=== PATIENT | female | born 1935 | race Caucasian/White ===

== ENCOUNTER 2016-08-16 14:32 | Inpatient (IN) | payer MEDICARE, OTHER ==
[~2016-08-16] VITALS: Ht 157.5 cm; Wt 64.9 kg
[~2016-08-16 14:32] MED LIST: [UNRECOGNIZED DRUG - REMARK]
[2016-08-16] MEDS ORDERED: SODIUM CHLORIDE 0.9% 1L BAG IV* STA (15:19)
[2016-08-16] MEDS ORDERED: LEVOFLOXACIN 750MG/D5W (PMX) 150 ML IVPB STA (15:19)
[2016-08-16] MEDS ORDERED: ALBUTEROL 0.083% (NEB) 2.5 MG/3 ML AMP HHN STA (15:37)
[2016-08-16] MEDS ORDERED: ONDANSETRON 4 MG INJ IV STA (15:37)
[2016-08-16 15:53] LABS: ADD SCAN DIFF NO
[2016-08-16 15:55] LABS: BASOPHILS % 0.1 % (0.0-2.0); EOSINOPHILS % 0.2 % (0.0-7.0); HEMATOCRIT 35.5 % (37.0-47.0); HEMOGLOBIN 12.1 g/dl (12.0-16.0); LYMPHOCYTES # 1.2 10^3/ul (0.8-2.9); LYMPHOCYTES % 9.6 % (15.0-51.0); MEAN CORPUSCULAR HEMOGLOBIN 29.5 pg (29.0-33.0); MEAN CORPUSCULAR HGB CONC 34.1 g/dl (32.0-37.0); MEAN CORPUSCULAR VOLUME 86.6 fl (82.0-101.0); MEAN PLATELET VOLUME 10.7 fl (7.4-10.4); MONOCYTE # 0.7 10^3/ul (0.3-0.9); MONOCYTES % 5.1 % (0.0-11.0); NEUTROPHILS % 84.6 % (39.0-77.0); PLATELET COUNT 224 10^3/UL (140-415); RED CELL DISTRIBUTION WIDTH 12.5 % (11.5-14.5); WHITE BLOOD COUNT 12.9 10^3/ul (4.8-10.8)
[2016-08-16] MEDS ORDERED: ONDANSETRON 4 MG INJ IV PRN (16:00)
[2016-08-16] MEDS ORDERED: ACETAMINOPHEN 325 MG TAB PO PRN (16:00)
[2016-08-16 16:12] LABS: INR 0.96; PARTIAL THROMBOPLASTIN TIME 30.6 Sec (25.0-35.0); PROTIME 12.8 Sec (12.2-14.2)
[2016-08-16 16:21] LABS: ALBUMIN 4.3 g/dl (3.3-4.9); CHLORIDE 87 mmol/L (97-110)
[2016-08-16 16:22] LABS: POTASSIUM 3.5 mmol/L (3.5-5.1); SODIUM 130 mmol/L (135-144)
[2016-08-16 16:24] LABS: ALANINE AMINOTRANSFERASE 27 IU/L (13-69); ALBUMIN/GLOBULIN RATIO 1.43; ALKALINE PHOSPHATASE 51 IU/L (42-121); ANION GAP 19 (8-16); ASPARTATE AMINO TRANSFERASE 27 IU/L (15-46); BILIRUBIN,INDIRECT 0.4 mg/dl (0-1.1); BILIRUBIN,TOTAL 0.4 mg/dl (0.2-1.3); BLOOD UREA NITROGEN 9 mg/dl (7-20); CARBON DIOXIDE 28 mmol/L (21-31); CREATININE 0.56 mg/dl (0.44-1.00); GLUCOSE 142 mg/dl (70-220); TOTAL PROTEIN 7.3 g/dl (6.1-8.1)
[2016-08-16 16:25] LABS: CALCIUM 9.1 mg/dl (8.4-10.2)
[2016-08-16] MEDS ORDERED: TAMS0.4C2 PO (16:33)
[2016-08-16] MEDS ORDERED: SIMV10TA PO (16:33)
[2016-08-16] MEDS ORDERED: MAXZ25 PO (16:34)
[2016-08-16] MEDS ORDERED: LEVO500T10 PO (16:36)
[2016-08-16] MEDS ORDERED: TRAZ100T15 PO (16:36)
--- NOTE | 2016-08-16 16:37 | RADRPT ---
PROCEDURE: XR Chest. CLINICAL INDICATION: Shortness of breath. TECHNIQUE: Single frontal view. COMPARISON: 05/25/2012. FINDINGS: The lungs are clear. The heart size is normal. There is calcification in the aorta consistent with atherosclerosis. There is no pleural effusion. There is no pneumothorax. IMPRESSION: 1. Atherosclerosis. 2. Otherwise normal chest radiograph. RPTAT: QQ .Shakir Rojo MD, MD Date Time Electronically viewed and signed by .Shakir Rojo MD, MD on 08/16/2016 16:36 .R/
[2016-08-16 16:38] LABS: TROPONIN-I < 0.012 ng/ml (0.00-0.12)
[2016-08-16] MEDS ORDERED: CHLO1CAP57 PO (16:39)
[2016-08-16] MEDS ORDERED: SOD CHLORIDE 0.9% 100 ML ONE (18:21)
[2016-08-16] MEDS ORDERED: IOHEXOL 100 ML ONE (18:21)
--- NOTE | 2016-08-16 18:38 | ERA ---
ER Documentation Chief Complaint Date/Time DATE: 08/16/16 TIME: 18:36 Chief Complaint REFERRED HERE BY DR. TURK TO BE ADMITTED FOR PNEUMONIA/ RESP FAILURE HPI Patient is an 81-year-old female with hypertension who presents for pneumonia. The patient was sent by Dr. Turk who saw the patient in her office for pneumonia and respiratory failure. The patient woke up yesterday with a sore throat for the past few months was not feeling well per the son. The patient has had congestion with positive phlegm. The patient went to an urgent care yesterday was given Levaquin antibiotics but was not feeling better. Upon review of old medical records the patient has had previous visits. The patient' s primary doctor is Dr. Bolaños but he is on vacation. ROS All systems reviewed and are negative except as per history of present illness. Medications Home Meds Reported Medications Chlordiazepoxide/Clidinium Br (Chlordiazepoxide-Clidinium Cap) 1 Each Capsule, 1 EACH PO QID, CAP 08/16/16 Trazodone Hcl* (Trazodone Hcl*) 100 Mg Tablet, 100 MG PO QHS, #30 TAB 08/16/16 Triamterene/Hctz* (Maxzide (37.5-25)*) 1 Each Tablet, 1 EACH PO DAILY, #30 TAB 08/16/16 Tamsulosin Hcl* (Tamsulosin Hcl*) 0.4 Mg Cap.er.24h, 0.4 MG PO HS, CAP 08/16/16 Simvastatin* (Zocor*) 10 Mg Tablet, 10 MG PO DAILY, #30 TAB 08/16/16 Discontinued Reported Medications Levofloxacin* (Levofloxacin*) 500 Mg Tablet, 500 MG PO DAILY for 7 Days, #7 TAB 08/16/16 [Didn't Bring List Of Meds] No Conflict Check 05/25/12 Allergies Allergies: Coded Allergies: Sulfa (Sulfonamide Antibiotics) (Verified Allergy, Unknown, 08/16/16) amoxicillin (Verified Allergy, Unknown, 08/16/16) chlorhexidine (Verified Allergy, Unknown, 08/16/16) clindamycin (Verified Allergy, Unknown, 08/16/16) doxycycline (Verified Allergy, Unknown, 08/16/16) erythromycin base (Verified Allergy, Unknown, 08/16/16) hyoscyamine (Verified Allergy, Unknown, 08/16/16) nabumetone (Verified Allergy, Unknown, 08/16/16) omeprazole (Verified Allergy, Unknown, 08/16/16) omeprazole magnesium (Verified Allergy, Unknown, 08/16/16) sulfur (Verified Allergy, Unknown, 08/16/16) PMhx/Soc History of Surgery: Yes ( VAGINAL HYST,OOPHORECTOMY,EXPLOR LAP 1983) Anesthesia Reaction: No Hx Neurological Disorder: No Hx Respiratory Disorders: No Hx Cardiac Disorders: Yes (HIGH CHOL, HTN) Hx Psychiatric Problems: No Hx Miscellaneous Medical Probl: No Hx Alcohol Use: Yes (OCASSIONAL ) Hx Substance Use: No Hx Tobacco Use: No Smoking Status: Former smoker FmHx Family History: No diabetes Physical Exam Vitals Vital Signs Date Time Temp Pulse Resp B/P Pulse Ox O2 Delivery O2 Flow Rate FiO2 08/16/16 17:35 90 20 141/55 99 Nasal Cannula 2.0 08/16/16 16:01 Nasal Cannula 08/16/16 15:55 100 20 93 21 08/16/16 15:40 Nasal Cannula 2 08/16/16 14:58 99.5 100 18 164/71 99 Physical Exam Const: Mild distress Head: Atraumatic Eyes: Normal Conjunctiva ENT: Normal External Ears, Nose and Mouth. Neck: Full range of motion..~ No meningismus. Resp: Rhonchorous breath sounds bilaterally with mild expiratory wheezing and tachypnea Cardio: Tachycardic rate without murmur Abd: Soft, non tender, non distended. Normal bowel sounds Skin: No petechiae or rashes Back: No midline or flank tenderness Ext: No cyanosis, or edema Neur: Awake and alert Psych: Normal Mood and Affect Result Diagram: 08/16/16 1540 08/16/16 1540 Results 24 hrs Laboratory Tests Test 08/16/16 15:25 08/16/16 15:40 08/16/16 17:00 Lactic Acid Level 1.3mmol/L 2.8mmol/L White Blood Count 12.910^3/ul Red Blood Count 4.1010^6/ul Hemoglobin 12.1g/dl Hematocrit 35.5% Mean Corpuscular Volume 86.6fl Mean Corpuscular Hemoglobin 29.5pg Mean Corpuscular Hemoglobin Concent 34.1g/dl Red Cell Distribution Width 12.5% Platelet Count 25656^3/UL Mean Platelet Volume 10.7fl Neutrophils % 84.6% Lymphocytes % 9.6% Monocytes % 5.1% Eosinophils % 0.2% Basophils % 0.1% Nucleated Red Blood Cells % 0.0/100WBC Neutrophils # 11.010^3/ul Lymphocytes # 1.210^3/ul Monocytes # 0.710^3/ul Eosinophils # 0.010^3/ul Basophils # 0.010^3/ul Nucleated Red Blood Cells # 0.010^3/ul Prothrombin Time 12.8Sec Prothrombin Time Ratio 1.0 INR International Normalized Ratio 0.96 Activated Partial Thromboplast Time 30.6Sec Sodium Level 130mmol/L Potassium Level 3.5mmol/L Chloride Level 87mmol/L Carbon Dioxide Level 28mmol/L Anion Gap 19 Blood Urea Nitrogen 9mg/dl Creatinine 0.56mg/dl Glucose Level 142mg/dl Calcium Level 9.1mg/dl Total Bilirubin 0.4mg/dl Direct Bilirubin 0.00mg/dl Indirect Bilirubin 0.4mg/dl Aspartate Amino Transf (AST/SGOT) 27IU/L Alanine Aminotransferase (ALT/SGPT) 27IU/L Alkaline Phosphatase 51IU/L Troponin I < 0.012ng/ml Total Protein 7.3g/dl Albumin 4.3g/dl Globulin 3.00g/dl Albumin/Globulin Ratio 1.43 Current Medications Medications (Trade) Dose Ordered Sig/Ana Laura Route PRN Reason Start Time Stop Time Status Last Admin Dose Admin Sodium Chloride 2000 ml 2,000 ml BOLUS OVER 2 HOURS STAT IV* 08/16/16 15:19 08/16/16 15:20 DC 08/16/16 15:52 Levofloxacin/ Dextrose (Levaquin 750 Mg/ D5W 150 ml (Pmx)) 150 ml @ 100 mls/hr ONCE STAT IVPB 08/16/16 15:19 08/16/16 16:48 DC 08/16/16 15:52 Ondansetron HCl (Zofran Inj) 4 mg ONCE STAT IV 08/16/16 15:37 08/16/16 15:38 DC 08/16/16 15:52 Albuterol (Proventil 0.083% (Neb)) 5 mg ONCE STAT HHN 08/16/16 15:37 08/16/16 15:38 DC 08/16/16 15:55 Ondansetron HCl (Zofran Inj) 4 mg BRIDGE ORDER PRN IV NAUSEA AND/OR VOMITING 08/16/16 16:00 08/17/16 15:59 Acetaminophen (Tylenol Tab) 650 mg ER BRIDGE PRN PO MILD PAIN/FEVER 08/16/16 16:00 08/17/16 15:59 Chlordiazepoxide/ Clidinium (Librax) 1 cap AC MEALS AND BEDTIME PO 08/16/16 21:00 UNV Tamsulosin HCl (Flomax) 0.4 mg HS PO 08/16/16 21:00 UNV Trazodone HCl (Desyrel) 100 mg QHS PO 08/16/16 21:00 UNV Miscellaneous Information 10 mg DAILY PO 08/17/16 09:00 UNV Clonidine 0.1 mg 0.1 mg Q4 PRN PO sbp >160 08/16/16 18:30 UNV Levofloxacin/ Dextrose 150 ml @ 100 mls/hr AM IVPB 08/17/16 09:00 UNV Potassium Chloride/Dextrose/ Sod Cl (D5-NS + KCl 20 Meq) 1,000 ml @ 50 mls/hr Q20H IV 08/16/16 18:30 UNV IV Flush 10 ml 10 ml STK-MED ONCE .ROUTE 08/16/16 18:21 08/16/16 18:22 DC Sodium Chloride 100 ml @ ud STK-MED ONCE .ROUTE 08/16/16 18:21 08/16/16 18:22 DC Iohexol (Omnipaque) 100 ml @ ud STK-MED ONCE .ROUTE 08/16/16 18:21 08/16/16 18:22 DC Procedures/MDM EKG read by me: Rate/Rhythm: Regular rate and rhythm at a rate of 99 Intervals: Normal Impression: No evidence of ischemia or arrhythmia Chest x-ray shows atherosclerosis per radiology. Patient is a 81-year-old female with hypertension who presents for clinical pneumonia. Her symptoms and physical exam are consistent with pneumonia and I will treat her with IV Levaquin. The patient has an elevated white blood cell count as well but a normal lactic acid. This point I doubt sepsis. She has failed outpatient treatment and will need admission to a medical surgical bed. I spoke with Dr. Turk who is on-call for her primary doctor Dr. Bolaños. At this point I doubt pneumothorax, pulmonary embolism, or acute coronary syndrome. The patient was dehydrated as well was given 30 mL/kg of normal saline bolus. Departure Diagnosis: Primary Impression: Pneumonia Qualified Code: J18.9 - Pneumonia due to infectious organism, unspecified laterality, unspecified part of lung Additional Impressions: Shortness of breath Leukocytosis Qualified Code: D72.829 - Leukocytosis, unspecified type Condition: NAVJOT Louie MD Aug 16, 2016 18:38
[2016-08-16 18:46] LABS: ADD UMIC YES; URINE BILIRUBIN (Dip) NEGATIVE (NEGATIVE); URINE BLOOD (Dip) TRACE (NEGATIVE); URINE COLOR LT. YELLOW (YELLOW); URINE GLUCOSE (Dip) NEGATIVE (NEGATIVE); URINE KETONES (Dip) 15 (NEGATIVE); URINE LEUKOCYTE ESTERASE (Dip) NEGATIVE (NEGATIVE); URINE NITRITE (Dip) NEGATIVE (NEGATIVE); URINE TOTAL PROTEIN (Dip) NEGATIVE (NEGATIVE); URINE UROBILINOGEN (Dip) 0.2 E.U./dL (0.1-1.0)
[2016-08-16 19:00] VITALS: TEMP 99.8
[2016-08-16 19:01] LABS: BACTERIA,URINE FEW; SQUAMOUS EPITHELIAL CELL,UR OCCASIONAL
--- NOTE | 2016-08-16 19:41 | RADRPT ---
PROCEDURE: CT chest with contrast/PE protocol CLINICAL INDICATION: Hypoxia and shortness of breath. Clinical concern for pulmonary embolism TECHNIQUE: The study was performed from the thoracic inlet to the upper abdomen with the use of 97 cc of Omnipaque 350 intravenous contrast material per PE protocol. Coronal/sagittal reformatted jarad ges and coronal MIP images were generated. The images were reviewed on a PACS workstation. CTDIvol = 20.79 mGy and DLP= 249.28 mGycm. COMPARISON: Chest x-ray 08/16/2016 FINDINGS: Lungs, airway and pleura: The trachea is patent and midline. There are areas of subtle bronchiecta sis in the right greater than left upper lobes and in the lower lobes with peribronchial thickening. The lungs are clear of infiltrates and masses but subsegmental atelectasis or scarring in the left lower lobe and the medial segment right middle lobe is present. A noncalcified subpleural nodule i n the inferior aspect medial segment right middle lobe is smoothly marginated and estimated at 7 x 4 mm (series 4 image 73). Calcified granulomata within the right upper lobe centrally are noted No ad ditional nodules are noted. The pleural spaces are clear, without effusions. Elevation of the left hemidiaphragm is present from left lower lobe subsegmental atelectasis Mediastinum, bethany and cardiovascular: The heart is normal in size. There is no evidence for perica rdial effusion. The thoracic aorta is normal in caliber and without dissection, mild atheroscleroti c calcification is present. There are no filling defects within the pulmonary arteries to suggest e mboli. Prominence of the lymphatics in the hilar region bilaterally is noted with a precarinal lymp h node having a short axis of 9 mm. The esophagus is normal in caliber. Osseous structures and musculoskeletal findings: There is preservation of bone architecture and min eralization with no evidence for fracture, lytic or blastic lesion. Mild scoliosis and multilevel de generative spondylosis of the thoracic spine is present No chest wall abnormalities are present. Th e axillary regions are unremarkable. Visualized upper abdomen: No abnormalities are identified. The adrenal glands are normal bilateral ly. RPTAT:HJJR IMPRESSION: 1. No evidence for pulmonary embolism. 2. Subsegmental atelectasis most pronounced left lower lobe with elevation of the left hemidiaphrag m and diffuse basilar dominant bronchitis pattern with mild bronchiectasis and prominence of the hil ar lymphatics as well as a top normal sized precarinal lymph node, findings not appreciated on the e [facility] chest x-ray. 3. Aortic atherosclerosis is present. Lemuel Sorenson Physician Date Time Electronically viewed and signed by Lemuel Sorenson, Physician on 08/16/2016 19:40 JR/
[2016-08-16] MEDS: D5-NS + KCL 20 MEQ 1,000 ML IV SCH (20:45)
[2016-08-16] MEDS: traZODone 100 MG TAB PO SCH (21:28)
[2016-08-16] MEDS: ATORVASTATIN 10 MG TAB PO SCH (21:28)
[2016-08-16] MEDS: TAMSULOSIN (SR) 0.4 MG CAP PO SCH (21:28)
[2016-08-16] MEDS: CHLORDIAZEPOXIDE/CLIDINIUM CAP PO SCH (21:28)
[2016-08-16 22:21] VITALS: BP 128/60; PULSE 92; RESP 23; Ht 157.5 cm; Wt 64.9 kg
[2016-08-16 23:21] VITALS: BP 128/60; RESP 20
--- NOTE | 2016-08-17 00:13 | HP ---
DATE OF ADMISSION: 08/16/2016 CHIEF COMPLAINT: Weakness, sore throat, coughing. HISTORY OF PRESENT ILLNESS: This 81-year-old female presented in the office with 3 days of sore throat, earache, coughing, and diarrhea. The patient went to the urgent care the day prior to admission and was given Levaquin 500 mg p.o. daily. She started these pills last night, but has been feeling more and more weak with increasing shortness of breath and coughing productive of green sputum, so she came into the office for recheck. In the office, the patient was noted to have elevated blood pressure, a decreased pulse oximetry of 88% on room air, and crackles at bilateral bases in the lungs , so patient was transferred to the emergency room for evaluation and subsequent admission. PAST MEDICAL HISTORY: Hypertension, anemia, osteoporosis, mitral valve prolapse , sinusitis, irritable bowel syndrome, nocturia. PREVIOUS SURGICAL HISTORY: Includes appendectomy, hysterectomy with oophorectomy, and recent duodenal polypectomy at [facility] in June. ALLERGIES: THE PATIENT HAS SIDE EFFECTS TO: 1. CLINDAMYCIN. 2. DOXYCYCLINE. 3. ERYTHROMYCIN. 4. SULFA. 5. FOSAMAX 6. PRILOSEC. 7. REGLAN. NO TRUE ALLERGIES. CURRENT MEDICATIONS: Included: 1. Dyazide 37/25 one p.o. every day. 2. Simvastatin 10 mg p.o. every day. 3. Trazodone 100 mg p.o. at bedtime. 4. Librax 1 p.o. q.i.d., a.c., and at bedtime. 5. Tamsulosin 0.4 mg p.o. at bedtime. FAMILY HISTORY: The patient's father of liver cancer. The patient's mother of lung cancer. REVIEW OF SYSTEMS: GENERAL: The patient has been having severe fatigue and weakness, but no fever or chills. HEENT: She had earache, sore throat, but no headache or dizziness. No blurred vision, double vision, eye pain. PULMONARY: She has been having a cough productive of green sputum and mild shortness of breath. No wheezing. CARDIOVASCULAR: She denies chest pain, palpitation, but did feel short of breath on exertion. GASTROINTESTINAL: She did have abdominal pain and diarrhea each time she eats. No blood in the stool. No nausea, vomiting. MUSCULOSKELETAL: No joint pain or back problems. DERMATOLOGIC: No skin rashes or itching. No lumps, bumps, or edema of the extremities. NEUROLOGIC: No history of blackouts, dizziness, unusual weight gain, or weight loss. GENITOURINARY: She did not have any blood in the urine or a vaginal discharge, but has been having nocturia chronically, which is treated with tamsulosin. PHYSICAL EXAMINATION: VITAL SIGNS: Temperature 99.8, blood pressure 135/61, pulse 99, O2 saturation 96% on 2 liters nasal cannula. HEENT: Pupils equally round, reactive to light. Oropharynx clear. Bilateral ear canals with cerumen impaction. NECK: No nodes or goiter. LUNGS: Bilateral basilar crackles, right greater than left. No wheezing. CARDIAC: Regular rate and rhythm. Normal S1, S2. ABDOMEN: Active bowel sounds, soft, nondistended, nontender. EXTREMITIES: No clubbing, cyanosis, or edema. LABORATORY DATA: WBC 12.9, hemoglobin 12.1, hematocrit 35.5, platelet count 224 ,000. Sodium 130, potassium 3.5, BUN 9, creatinine 0.56. Lactic acid of 2.8. Liver enzymes are within normal limits. Troponin is less than 0.012. IMAGING: The patient's chest x-ray shows atherosclerosis, otherwise lungs are clear and no pleural effusion or pneumothorax. The chest CT angiogram shows no evidence of pulmonary embolism, but there is subsegmental atelectasis, most pronounced in the left lower lobe with elevation of the left hemidiaphragm and diffuse basilar dominant bronchitis pattern with mild bronchiectasis and prominence of hilar lymphatics as well as top normal size precarinal lymph node. All of these findings were not appreciated on chest x-ray done earlier. There is also a noncalcified subpleural nodule in the right middle lobe that is estimated at 7 x 4 mm. There is also a calcified granulomata within the right upper lobe centrally. IMPRESSION: 1. Bronchitis with bronchiectasis. Start patient on IV Levaquin as well as respiratory treatment with albuterol t.i.d. We will follow fever and leukocytosis clinically and consider steroid if respiratory distress worsens. 2. Lactic acidosis. Start hydration and antibiotics . Recheck when infection improved. 3, Hyponatremia. Maybe due to Dyazide. Will stop Dyazide for now, use Clonidine as needed and watch blood pressure. 3. GI issues. includes IBS- related nausea, recent doudenal polypectomt. Symptomatically improved on Librax per patient. Continue this medication. Dictated By: PAULETTE PORTILLO MD DP/NTS Conf#: [id number] DID#: [id number] MTDD
[2016-08-17 05:40] LABS: ADD SCAN DIFF NO
[2016-08-17 05:43] LABS: BASOPHILS % 0.1 % (0.0-2.0); HEMATOCRIT 28.2 % (37.0-47.0); HEMOGLOBIN 9.3 g/dl (12.0-16.0); LYMPHOCYTES # 1.3 10^3/ul (0.8-2.9); LYMPHOCYTES % 14.1 % (15.0-51.0); MEAN CORPUSCULAR HEMOGLOBIN 29.2 pg (29.0-33.0); MEAN CORPUSCULAR VOLUME 88.7 fl (82.0-101.0); MEAN PLATELET VOLUME 11.3 fl (7.4-10.4); MONOCYTE # 0.6 10^3/ul (0.3-0.9); MONOCYTES % 6.3 % (0.0-11.0); NEUTROPHILS % 78.9 % (39.0-77.0); PLATELET COUNT 183 10^3/UL (140-415); RED BLOOD COUNT 3.18 10^6/ul (4.20-5.40); RED CELL DISTRIBUTION WIDTH 12.7 % (11.5-14.5); WHITE BLOOD COUNT 8.9 10^3/ul (4.8-10.8)
[2016-08-17 06:10] LABS: ALBUMIN 2.7 g/dl (3.3-4.9); POTASSIUM 3.2 mmol/L (3.5-5.1)
[2016-08-17 06:12] LABS: BILIRUBIN,INDIRECT 0.3 mg/dl (0-1.1); BILIRUBIN,TOTAL 0.3 mg/dl (0.2-1.3); CREATININE 0.53 mg/dl (0.44-1.00)
[2016-08-17 06:13] LABS: ALBUMIN/GLOBULIN RATIO 1.12; CALCIUM 7.7 mg/dl (8.4-10.2); TOTAL PROTEIN 5.1 g/dl (6.1-8.1)
[2016-08-17 07:58] VITALS: BP 106/51; RESP 20
[2016-08-17] MEDS ORDERED: POTASSIUM CHLORIDE (SR) 20 MEQ TAB PO STA (08:15)
[2016-08-17] MEDS: CHLORDIAZEPOXIDE/CLIDINIUM CAP PO SCH ×4 (08:27→20:28)
[2016-08-17] MEDS: GUAIFENESIN/CODEINE 5ML CUP PO PRN ×2 (08:52→17:27)
--- NOTE | 2016-08-17 12:15 | RADRPT ---
PROCEDURE: XR Chest 1 View. CLINICAL INDICATION: Shortness of breath, pneumonia TECHNIQUE: AP view of the chest was obtained. COMPARISON: August 16, [address] August 16, 2016 FINDINGS: The heart size is within normal limits. Calcified atherosclerosis is noted in the aorta. Chronic mi ld interstitial prominence is seen in both lungs. Scattered atelectasis is seen in the bilateral low er lungs The osseous structures are osteopenic, but appear grossly intact. IMPRESSION: Calcified atherosclerosis in the aorta. Scattered atelectasis in the bilateral lower lungs. Chronic mild interstitial prominence in both lungs. RPTAT: AA .Andrew Hayward MD, MD Date Time Electronically viewed and signed by .Andrew Hayward MD, on 08/17/2016 12:15 .P/
[2016-08-17] MEDS: D5-NS + KCL 20 MEQ 1,000 ML IV SCH ×2 (14:30→20:28)
[2016-08-17 15:22] LABS: HEMATOCRIT 26.6 % (37.0-47.0)
[2016-08-17] MEDS ORDERED: LEVOFLOXACIN 750MG/D5W (PMX) 150 ML IVPB SCH (16:00)
[2016-08-17] MEDS: PANTOPRAZOLE 40 MG INJ IV SCH (18:00)
--- NOTE | 2016-08-17 18:36 | CONS ---
DATE OF ADMISSION: 08/16/2016 DATE OF CONSULTATION: 08/17/2016 TYPE OF CONSULTATION: Infectious Disease. REASON FOR CONSULTATION: Antibiotic management. HISTORY OF PRESENT ILLNESS: Caitlin Vazquez is an 81-year-old female who comes in with weakness, sore throat and cough. Her past problems include: 1. Hypertension. 2. Mitral valve prolapse. 3. Irritable bowel syndrome. 4. Anemia. 5. Osteoporosis. 6. Sinusitis. 7. Nocturia. 8. Status post appendectomy. 9. Status post hysterectomy with oophorectomy. ALLERGIES: SIDE EFFECTS TO CLINDAMYCIN, DOXYCYCLINE, ERYTHROMYCIN, SULFA, FLOMAX, PRILOSEC AND REGLAN. Acutely, the patient presented to Dr. Turk with 3 days of sore throat, earache, coughing and diarrhe a. She went to urgent care the day prior to admission, was given Levaquin 500 mg daily. She has been feeling more weak with increasing shortness of breath and cough. She had an elevated b lood pressure in the office and her pulse oximetry was 88% on room air. She had crackles at her bas es bilaterally, so she was transferred to the emergency room for evaluation and admission. On admis arya, her white count was 12.9, H and H 12.1 and 35.5, platelet count 224,000. BUN and creatinine 9 /0.56. Lactic acid 2.8. Liver enzymes within normal limits. PAST MEDICAL HISTORY: Operations as outlined. FAMILY HISTORY: Noncontributory. Father of liver cancer. Mother of lung cancer. ALLERGIES: As noted. MEDICATIONS: Per chart. REVIEW OF SYSTEMS: Noncontributory. PHYSICAL EXAMINATION: GENERAL: The patient is a well-developed, well-nourished elderly female who is alert, responsive, i n no acute distress, complaining of severe fatigue and weakness without fever or chills. OBJECTIVE: VITAL SIGNS: Stable. She is afebrile. O2 sat is 96% on 2 liters on admission. SKIN: Without generalized rash. HEENT: Within normal limits. NECK: Supple. LYMPH NODES: None palpable. CHEST: Decreased breath sounds at the bases with bilateral basilar crackles or rales, right greater than left. HEART: Without murmur or gallop. ABDOMEN: Soft, nontender, without organosplenomegaly or masses. EXTREMITIES: Without cyanosis, clubbing, or edema. RECTAL AND GENITAL: Deferred. NEUROLOGIC: No focal neurological abnormalities. HOSPITAL COURSE: A chest x-ray on August [address] angiogram showed no evidence of pulmon heather embolism, subsegmental atelectasis most pronounced in the left lower lobe and elevation of left hemidiaphragm, diffuse basilar dominant bronchitis pattern with mild bronchiectasis and prominence o f hilar lymphatics as well as the top normal size precarinal lymph node. Findings not appreciated o n merely a chest x-ray. Chest x-ray from today shows chronic mild interstitial prominence in both l ungs. IMPRESSION AND PLAN: The patient was begun on Levaquin for bronchitis. Urine and blood cultures nicole ve been negative. We will continue her on current therapy with Levaquin. I will dictate my finding s to Dr. Turk. Dictated By: CANDACE HARRINGTON MD, JD/ROWDY Conf#: [id number] DID#: [id number]
--- NOTE | 2016-08-17 18:58 | PN ---
DATE: 08/17/2016 SUBJECTIVE: The patient appears weak and tired, complains of a frequent cough that is wet sounding today. OBJECTIVE: VITAL SIGNS: Temperature 98.0, blood pressure 106/51, pulse of 77, respiration rate 20, O2 saturation 94% on 2 L nasal cannula. HEENT: Pupils equally round, reactive to light. Oropharynx clear. CHEST: Bilateral basilar crackles. CARDIAC: Regular rate and rhythm. ABDOMEN: Active bowel sounds. Soft, nondistended, nontender. No hepatosplenomegaly. EXTREMITIES: No clubbing, cyanosis or edema. LABORATORY DATA: WBC 8.9, hemoglobin 9.3, hematocrit 28.2, platelet count 183, 000. A repeat H and H shows a hemoglobin of 9.0 and hematocrit of 26.6. The patient had a sodium of 132, which is improved from last night at 130. Potassium was 3.2, chloride 98, carbon dioxide 25, BUN of 7, creatinine 0.53, glucose 105. Her liver enzymes were within normal limits except for a decreased total protein of 5.1 and albumin of 2.7, which is a sudden drop also from last night when the total protein was 7.3 and albumin was 4.3. IMAGING: The patient's chest x-ray this morning showed scattered atelectasis in the bilateral lower lung almodovar, chronic mild interstitial prominence in both lungs. ASSESSMENT AND PLAN: 1. Bronchitis with bronchiectasis. The patient is on Levaquin and albuterol treatment with improving respiratory function and oxygenation status. Continue current medications for now. 2. New-onset anemia. May be dilutional as suggested by the drop in total protein and albumin also, but this is a significant drop, and the patient denies any blood in the stool or black stool even with her recent episodes of diarrhea. However, given her recent duodenal polyp resection at [facility] in June, will resume pantoprazole IV, check stool for Hemoccult and follow H and H q.6 hours to make sure that the patient is not having acute bleed. Another possibility for the acute onset of anemia may well be an atypical infection and / or antibiotics , which may cause hemolysis as well as impact on patient's bone marrow function. I will consult Infectious Disease as well as marketing support coordinator to clarify the origin of this sudden drop in hemoglobin, hematocrit. 3. Hyponatremia. Improving with discontinuation of dyazide. Continue to monitor. Dictated By: PAULETTE PORTILLO MD DP/NTS Conf#: [id number] DID#: [id number] MTDD
[2016-08-17 19:29] LABS: BILIRUBIN,INDIRECT 0.2 mg/dl (0-1.1); BILIRUBIN,TOTAL 0.2 mg/dl (0.2-1.3)
[2016-08-17 19:40] VITALS: BP 100/51; RESP 18
[2016-08-17] MEDS: ATORVASTATIN 10 MG TAB PO SCH (20:28)
[2016-08-17] MEDS: TAMSULOSIN (SR) 0.4 MG CAP PO SCH (20:28)
[2016-08-17] MEDS: traZODone 100 MG TAB PO SCH (20:28)
[2016-08-17 23:28] LABS: HEMATOCRIT 27.8 % (37.0-47.0); HEMOGLOBIN 9.2 g/dl (12.0-16.0)
[2016-08-18 00:24] LABS: INR 1.1; PROTIME 14.2 Sec (12.2-14.2); PT RATIO 1.1
[2016-08-18 00:25] LABS: PARTIAL THROMBOPLASTIN TIME 39.7 Sec (25.0-35.0)
[2016-08-18 00:27] LABS: D-DIMER 2496.41 ng/ml (<460)
[2016-08-18] MEDS: PANTOPRAZOLE 40 MG INJ IV SCH ×2 (05:45→17:49)
[2016-08-18 05:53] LABS: ADD SCAN DIFF NO
[2016-08-18 05:57] LABS: BASOPHILS % 0.2 % (0.0-2.0); EOSINOPHILS # 0.1 10^3/ul (0.0-0.5); EOSINOPHILS % 2.5 % (0.0-7.0); HEMATOCRIT 27.6 % (37.0-47.0); HEMOGLOBIN 8.9 g/dl (12.0-16.0); LYMPHOCYTES # 1.4 10^3/ul (0.8-2.9); LYMPHOCYTES % 24.6 % (15.0-51.0); MEAN CORPUSCULAR HEMOGLOBIN 29.1 pg (29.0-33.0); MEAN CORPUSCULAR HGB CONC 32.2 g/dl (32.0-37.0); MEAN CORPUSCULAR VOLUME 90.2 fl (82.0-101.0); MEAN PLATELET VOLUME 10.6 fl (7.4-10.4); MONOCYTE # 0.6 10^3/ul (0.3-0.9); MONOCYTES % 9.9 % (0.0-11.0); NEUTROPHIL # 3.5 10^3/ul (1.6-7.5); NEUTROPHILS % 62.3 % (39.0-77.0); PLATELET COUNT 156 10^3/UL (140-415); RED BLOOD COUNT 3.06 10^6/ul (4.20-5.40); RED CELL DISTRIBUTION WIDTH 13.1 % (11.5-14.5); WHITE BLOOD COUNT 5.6 10^3/ul (4.8-10.8)
[2016-08-18 06:12] LABS: ALBUMIN 2.6 g/dl (3.3-4.9); ALBUMIN/GLOBULIN RATIO 1.13; CALCIUM 7.8 mg/dl (8.4-10.2); CREATININE 0.52 mg/dl (0.44-1.00); TOTAL PROTEIN 4.9 g/dl (6.1-8.1)
[2016-08-18] MEDS: CHLORDIAZEPOXIDE/CLIDINIUM CAP PO SCH ×4 (08:24→23:28)
--- NOTE | 2016-08-18 08:52 | PQ ---
Date/Time of Note Date/Time of Note DATE: 08/18/16 TIME: 08:[address] Turk, A review of the medical record found a need for documentation clarification. Patient admitted with Na 130 and is being treated with IV fluids with improvement to 132, please specify a diagnosis related to patient's Na level. Thank you Please clarify a diagnosis being treated. To facilitate accurate and complete coding, please todd ( x ) the suspected diagnosis that apply: ( ) Hyponatremia ( ) Hypernatremia ( ) Other ( ) Unable to determine Please provide your response by clicking edit document,~ making~ your choice ( x ), click ok/save and finally click sign. You may also~ document your response~ on~ your progress notes. ~ Thank you for your time. Red Song MD,CCS,CCDS Clinical Human Services Case Manager Health Information Management, CDI and Coding Services Room # 1525 - [address]~ [id number] [place] Aug 18, 2016 08:52
[2016-08-18 09:00] VITALS: BP 130/60; RESP 20
--- NOTE | 2016-08-18 10:06 | CONS ---
DATE OF ADMISSION: 08/16/2016 DATE OF CONSULTATION: 08/18/2016 HEMATOLOGY CONSULTATION REQUESTING PHYSICIAN: Dr. Jennifer Turk and Dr. William Bolaños REASON FOR CONSULTATION: Anemia. Dear Dr. Turk and Dr. Bolaños: Thank you very much for asking me to see this very interesting and pleasant patient in hematologic c onsultation. Ms. Vazquez is an 81-year-old female who was admitted to [facility] after being s een as an outpatient with complaints of some pharyngitis coughing, and diarrhea which apparently had been present for several days prior to admission. The patient had been previously given oral levof loxacin, but the patient did not improve and felt more short of breath and states she had productive sputum. The patient was seen again as an outpatient by Dr. Turk and was found to have a pulse oximetry of on ly 88. There was also some pulmonary congestion, and the patient was then brought to the emergency room. The patient was then admitted to the hospital. On admission on 08/16/2016, the patient had a white count of 12,900 with 11,000 absolute neutrophil count, and 1200 absolute lymphocyte count, red blood cell count was 4.10 million, hemoglobin was 12. 2, hematocrit 35.5, MCV 86.6, MCH 29.5, MCHC 34.1, RDW 12.5, platelet count 224,000. This was done at 1540 on August 16. At 0500 on August 17, the patient's hemoglobin had dropped to 9.3 and hemat ocrit was 28.2. This morning at 0500, white count was 5600, hemoglobin 8.9, hematocrit 27.6, and pl atelet count 156,000. On admission, the patient had a comprehensive metabolic panel with a sodium of 130, potassium of 3.5 , chloride 87. BUN was 9 and creatinine was 0.56. Remainder of the CMP was normal. Troponin was l ess than 0.012. Albumin was noted to be 4.3 with a globulin of 3. This morning, the sodium is 132, BUN is 9, creatinine 0.56. Total bilirubin is 0, AST 26, ALT 25, total protein 4.9, albumin is onl y 2.6. It was 2.7 on August 17. Other laboratory has included a lactic acid of 2.8, a repeat of 2.9. At the time of admission it wa s reported as being 1.3. Protime is 14.2 seconds, INR of 1.10, PTT 37.9 seconds. D-dimer 2496. A chest x-ray does demonstrate mild interstitial prominence in both lungs and scattered atelectasis in the lower bases. A CT angiogram of the chest does not demonstrate any evidence for pulmonary emb olism. There is some subsegmental atelectasis, mostly in the left lower lobe, with elevation of lef t hemidiaphragm and diffuse basilar dominant bronchitis pattern with mild bronchiectasis. There are no other actual parenchymal masses. The patient states that she has not any nausea or vomiting and not had hematemesis, melena, or hemat ochezia at this time. It is interesting to note that the patient did have several months of previous epigastric discomfort and ultimately was found to have a polyp in the duodenum. She states this was removed at [facility] in june of this year. This was done as an outpatient. She was sent home where she had a syncop al episode. She was brought back to [facility] and hospitalized for 4 days and did require blood transfus ion during that time. She does not recall having hematemesis, melena, or hematochezia at that time. The patient states that since this occurrence she has not wanted to eat because she had previously b een experiencing symptoms of reflux and had previously been told of gastritis. She states she has l ost approximately 15 pounds in the past 2 months. The patient does state that she has been told intermittently of anemia in the past and has also been treated periodically with iron tablets. She states she has not taken iron since April or of this year. As mentioned, the patient denies hematemesis, melena, or hematochezia at this time. PAST MEDICAL HISTORY: Includes a history of hypertension, osteoporosis, mitral valve prolapse, and irritable bowel syndrome. PAST SURGICAL HISTORY: Includes tonsillectomy, appendectomy following peritonitis. A hysterectomy and at a later time an oophorectomy. As mentioned, the patient has had recent multiple EGDs. Last colonoscopy she states was approximately 2 years ago. MEDICATIONS: At this time include: 1. Simvastatin 10 mg daily. 2. Trazodone 100 mg hour of sleep p.r.n. 3. Librax 1 p.o. q.i.d. a.c. and at bedtime. 4. Tamsulosin 0.4 mg at bedtime. 5. Dyazide 37/25 one daily. ALLERGIES: THE PATIENT DOES STATE THAT SHE HAS MULTIPLE ALLERGIES. THESE INCLUDE: 1. SULFA. 2. AMOXICILLIN. 3. CHLORHEXIDINE. 4. CLINDAMYCIN. 5. DOXYCYCLINE. 6. ERYTHROMYCIN. 7. HYSOCYAMINE. 8. NABUMETONE. 9. OMEPRAZOLE. SOCIAL HISTORY: The patient is . She has no known exposures to industrial toxins or ionizin g radiation. The patient states that she has not smoked in 10 years, previously smoked approximatel y less than half pack of cigarettes per day. Does not use alcohol. FAMILY HISTORY: Includes her father having liver cancer, it is unclear if this was a primary or met astatic disease. The patient's mother did have a bronchogenic carcinoma. PHYSICAL EXAMINATION: GENERAL: At this time reveals a well-developed, well-nourished female who is in no acute distress. VITAL SIGNS: Temperature 98, pulse 70 per minute and regular, respirations 18, blood pressure 100/6 0, pulse oximetry 93% on 2 L by nasal cannula. SKIN: Pale. No ecchymosis, no petechiae or rashes. HEENT: No mucosal lesions. No scleral icterus. The tongue is well papillated. There is no gingiv al hyperplasia, no hypertrophy of Waldeyer's ring, no mucosal telangiectasias. Nasal oxygen in plac e. NECK: Supple, no jugular venous distention or thyroid enlargement. CHEST: There are bilateral rhonchi. No rubs are heard. No wheezes. The rhonchi do not clear with cough or deep inspiration. HEART: Regular sinus rhythm, no S3, S4, or murmurs. NODES: No palpable lymphadenopathy in any lymph node bearing area. ABDOMEN: Soft, no masses or ascites. Bowel sounds are active. There is a midline surgical incisio n which is well healed. No hernia defects. EXTREMITIES: No clubbing, edema, or cyanosis. No palpable cords or Homans' sign. NEUROLOGIC: Normal. DISCUSSION: This patient has been found to have a drop in hemoglobin of 3 g in approximately 14 hema rs. This type of drop, if factual, can only occur with hemolysis or blood loss. There is no evidence of hemolysis. The patient's LDH has been found to be only 418 with the upper l imits of normal being 618. Total bilirubin is 0. Haptoglobin has been requested and is pending. I feel it is likely that the original hemoglobin of 12.1 is not factual. It should also be noted th at the patient on admission is said to have had an albumin of 4.3, but again within 14 hours it was only 2.7, repeat is 2.6. The patient's recent history of having a duodenal polypectomy at [facility], which was followed by a readm ission and required blood transfusion, is of some concern. The patient at this time does not give any signs or symptoms suggesting GI blood loss, but certainly this must be considered. The patient's decreased albumin suggests malnutrition and some the likelihood of some underlying chr onic condition. I have reviewed the peripheral smear. The red blood cell morphology is relatively normal. There is no evidence of hypochromasia microcytosis. There are no fragmented red blood cells, no spherocytes . The white blood cells are normal in number in distribution. There are no immature granulocytes, no hypersegmented polys, and there is 1 nucleated red blood cell seen. The lymphocytes are normal, platelets are normal in number and morphology. I have requested other studies at this time to include a serum protein electrophoresis, immunofixati on, quantitative immunoglobulins, erythrocyte sedimentation rate, SHELBIE. As noted, haptoglobin is pending. We will also obtain iron studies and a ferritin. Also B12 and fo lic acid level. Will request stools for occult blood as well. Once again, thank you very much for the opportunity of participating in the medical care of this tisha y interesting and pleasant patient. I will be happy to follow this patient with you and assist in h er hematologic evaluation and follow up as necessary. Dictated By: SHERWIN HAGEN MD SR/NTS Conf#: [id number] DID#: [id number]
[2016-08-18 10:26] LABS: IRON 14 ug/dl (35-150)
[2016-08-18 10:39] LABS: TOTAL IRON BINDING CAPACITY 216 ug/dl (241-421)
[2016-08-18 11:02] LABS: IMMUNOGLOBULIN A 51 mg/dl (70-400); IMMUNOGLOBULIN G 488 mg/dl (700-1600); IMMUNOGLOBULIN M 57 mg/dl (40-230)
[2016-08-18 11:21] LABS: FERRITIN 93.7 ng/ml (11.1-264.0)
[2016-08-18] MEDS: GUAIFENESIN/CODEINE 5ML CUP PO PRN ×2 (11:51→23:54)
[2016-08-18 11:52] LABS: FOLATE > 20.0 ng/ml (2.8-20.0)
--- NOTE | 2016-08-18 15:48 | PN ---
DATE: 08/18/2016 INFECTIOUS DISEASE PROGRESS NOTE SUBJECTIVE: The patient is alert, feels better, looks comfortable, still with significant cough but overall improving. No fevers. WBC today 5.6, H and H 8.9 and 27.6, platelets 156. No shift. No bands. BUN 9, creatinine 0.52. ANTIMICROBIALS: The patient is on IV Levaquin. MICROBIOLOGY: Cultures are negative. PHYSICAL EXAMINATION: GENERAL: This is a well-developed, fragile, elderly woman who is alert, in no distress. HEENT: Head: Atraumatic, normocephalic. Sclerae anicteric. Buccal mucosa pink. NECK: Supple. CHEST: Rise symmetrical. Breath sounds with scattered rhonchi. HEART: S1, S2. ABDOMEN: Soft, bowel tones present. EXTREMITIES: Without cyanosis, edema. ASSESSMENT: 1. Community-acquired pneumonia with acute bronchitis, improving. 2. Acute on chronic anemia. 3. Hypertension. 4. History of mitral valve prolapse. PLAN: The patient remains stable, overall improving. She is being seen by Dr. Dick in hematolog y consultation, pending anemia workup. Dictated By: BOWEN SALEH REPLANTING MACHINE CREW for CANDACE HARRINGTON MD NI/NTS Conf#: [id number] DID#: [id number]
[2016-08-18] MEDS ORDERED: VITAMIN A & D 5 GM OINT PACKET TOP ONE (17:28)
[2016-08-18] MEDS: D5-NS + KCL 20 MEQ 1,000 ML IV SCH (17:42)
--- NOTE | 2016-08-18 19:18 | PN ---
DATE: 08/18/2016 SUBJECTIVE: The patient is still weak and short of breath with a productive cough. However, she had a loose yellow stool this morning and no other abdominal symptoms. OBJECTIVE: VITAL SIGNS: Temperature 98.0, blood pressure 130/60, pulse of 69, respiration rate 20, O2 saturation is 95% on 2 L nasal cannula. HEENT: Pupils equally round, reactive to light. Oropharynx clear. CHEST: Bibasilar crackles. No wheezing. CARDIAC: Regular rate and rhythm. Normal S1, S2. ABDOMEN: Active bowel sounds. Soft, nondistended, nontender. EXTREMITIES: No clubbing, cyanosis or edema. LABORATORY DATA: WBC 5.6, hemoglobin 8.9, hematocrit 27.6, platelet count 156, 000. Sodium 132, chloride 4.0, BUN 9, creatinine 0.52, glucose 100. The patient's iron level is low at 14 with a percent saturation of 6 and a TIBC of 216. Her B12 and folic acid are both elevated. Liver enzymes are notable for decreased total protein, decreased albumin just like before at 4.9 and 2.6 respectively. The patient's PT/INR was within normal limits, and PTT was mildly elevated at 39.7. The D-dimer is elevated at 2496. The patient's urine culture is growing mixed gram-positive organism, and her blood culture is negative after 2 days. ASSESSMENT AND PLAN: 1. Anemia. I agree with Dr. Dick's analysis that the initial CBC on admission may have been erroneous. I will see when was the last time she had the last CBC as an outpatient, but the current workup does show severe decreased iron as well as TIBC consistent with chronic blood loss as well as chronic disease. The patient reports that she has been taking oral iron, so we will need to consider IV iron replacement after hematology workup is finished. 2. Bronchopneumonia with bronchiectasis. Continue current antibiotic and respiratory treatment. Clinically the patient is improving slowly with a decreased WBC and decreased temperature. Her temperature on admission was 99.8 and has been 98 the past 2 days. 3. Hyponatremia. The patient reports that she had a history of hyponatremia as an outpatient and was told to eat potato chips for 1 month. It may still be due to dyazide diurectic , but the hyponatremia may be due to a pulmonary process or other conditions that might be causing an SIADH. I will go ahead and check a urine sodium and osmolality and if necessary consult Renal for workup of possible SIADH syndrome. 4. Duodenal polyp and gastroesophageal reflux disease and irritable bowel syndrome. Continue Protonix for her GERD and Librax for her IBS. I will try to contact her commercial loan processor, Dr. Diaz, who is on vacation today and see if he needs to do any further workup, but the patient just had endoscopy as recent as last month at [facility] for the polypectomy. Dictated By: PAULETTE PORTILLO MD DP/NTS Conf#: [id number] DID#: [id number] MTDD
[2016-08-18 19:39] VITALS: BP 113/56; RESP 20
[2016-08-18] MEDS: TAMSULOSIN (SR) 0.4 MG CAP PO SCH (20:22)
[2016-08-18] MEDS: SOD FERRIC GLUC COMPLX 125 MG in SOD CHLORIDE 0.9% 100 ML IVPB SCH (20:22)
[2016-08-18] MEDS: ATORVASTATIN 10 MG TAB PO SCH (20:22)
[2016-08-18] MEDS: traZODone 100 MG TAB PO SCH (20:35)
[2016-08-19] MEDS: PANTOPRAZOLE 40 MG INJ IV SCH ×2 (06:00→17:27)
[2016-08-19 07:47] VITALS: BP 128/58; RESP 20
[2016-08-19] MEDS: CHLORDIAZEPOXIDE/CLIDINIUM CAP PO SCH ×4 (07:55→20:22)
[2016-08-19 08:07] LABS: ADD SCAN DIFF NO
[2016-08-19 08:15] LABS: BASOPHILS % 0.4 % (0.0-2.0); EOSINOPHILS # 0.2 10^3/ul (0.0-0.5); EOSINOPHILS % 3.3 % (0.0-7.0); HEMATOCRIT 28.7 % (37.0-47.0); HEMOGLOBIN 9.2 g/dl (12.0-16.0); LYMPHOCYTES # 1.7 10^3/ul (0.8-2.9); LYMPHOCYTES % 34.4 % (15.0-51.0); MEAN CORPUSCULAR HEMOGLOBIN 29.1 pg (29.0-33.0); MEAN CORPUSCULAR HGB CONC 32.1 g/dl (32.0-37.0); MEAN CORPUSCULAR VOLUME 90.8 fl (82.0-101.0); MEAN PLATELET VOLUME 10.9 fl (7.4-10.4); MONOCYTE # 0.5 10^3/ul (0.3-0.9); MONOCYTES % 9.7 % (0.0-11.0); NEUTROPHIL # 2.5 10^3/ul (1.6-7.5); NEUTROPHILS % 51.8 % (39.0-77.0); PLATELET COUNT 175 10^3/UL (140-415); RED BLOOD COUNT 3.16 10^6/ul (4.20-5.40); WHITE BLOOD COUNT 4.9 10^3/ul (4.8-10.8)
[2016-08-19 08:40] LABS: POTASSIUM 3.7 mmol/L (3.5-5.1)
[2016-08-19 08:43] LABS: CREATININE 0.51 mg/dl (0.44-1.00)
[2016-08-19 10:20] LABS: PROTEIN, TOTAL 4.7 g/dL (6.1-8.1)
--- NOTE | 2016-08-19 14:35 | PN ---
DATE: 08/19/2016 SUBJECTIVE: The patient is alert, feels much better. Looks comfortable, no fevers. LABORATORY DATA: WBC 4.9, no shift, no bands. BUN 9, creatinine 0.51. ANTIMICROBIALS: Levaquin. PHYSICAL EXAMINATION: GENERAL: Well-developed, fragile, elderly woman who is alert, in no distress. HEENT: Head atraumatic, normocephalic. Sclerae anicteric. Buccal mucosa pink. NECK: Supple. CHEST: Rise symmetrical. Breath sounds clear. HEART: S1, S2. ABDOMEN: Soft, bowel sounds present. EXTREMITIES: Without cyanosis or edema. ASSESSMENT: 1. Acute community-acquired bronchitis with pneumonia, continues to improve. 2. Anemia, acute on chronic. 3. History of mitral valve prolapse and hypertension. PLAN: The patient is doing better. Continue present care. Anticipate discharge on oral Levaquin t o complete treatment for pneumonia. Dictated By: BOWEN SALEH ER RN for CANDACE SPENCER/ROWDY Conf#: [id number] DID#: [id number]
[2016-08-19 15:27] LABS: ANA SCREEN NEGATIVE (NEGATIVE)
[2016-08-19] MEDS ORDERED: LEVOFLOXACIN 750MG/D5W (PMX) 150 ML IVPB SCH (16:00)
[2016-08-19] MEDS: GUAIFENESIN/CODEINE 5ML CUP PO PRN ×2 (17:22→23:07)
--- NOTE | 2016-08-19 19:28 | PN ---
DATE: 08/19/2016 SUBJECTIVE: The patient continues to be short of breath and has a moist cough. She states she does occasionally produce yellow sputum. She has had no chest pain, no shaking chills. OBJECTIVE: VITAL SIGNS: Temperature 98.5, pulse 67 and regular, respirations 20, blood pressure is 128/58, pul se oximetry is 94% on 2 L of oxygen via nasal cannula. SKIN: Pale. No ecchymosis or petechiae. HEENT: No mucosal lesions. No scleral icterus. NECK: Supple. No jugular venous distention or thyroid enlargement. CHEST: Bilateral crackling rales. These did not clear on cough. There are no rubs. HEART: Regular sinus rhythm. No S3, S4 or murmurs. ABDOMEN: Soft. No masses or ascites. EXTREMITIES: No clubbing, edema or cyanosis. No palpable cords or Homans sign. ASSESSMENT: 1. Anemia, probably combined etiology, some degree of iron deficiency as well as anemia of chronic disease. 2. Shortness of breath with cough, bronchitis versus pneumonia. PLAN: The patient at this time, I believe, does have some degree of iron deficiency. She has had a t least 1 infusion of iron in which she has received 125 mg of elemental iron. I do feel that there is more required. The remainder of the patient's evaluation does not reveal any other etiology for the patient's anemi a. The haptoglobin is normal. SHELBIE is negative. Direct antiglobulin test and cold agglutinins are negative. As noted previously, the patient has a significantly decreased albumin and total protein. It is int eresting to note that the patient's quantitative immunoglobulins show a decrease in both IgG and IgA . Their immunofixation is pending. If the patient does have a monoclonal spike, this might explain the patient's decreased quantitative immunoglobulins in that it theoretically could represent a lig ht chain myeloma. Given the decreased IgA and IgG, the patient may benefit from an infusion of IVIG to help combat any pulmonary infection that this patient might have. Dictated By: SHERWIN HAGEN MD, SR/ROWDY Conf#: [id number] DID#: [id number]
[2016-08-19 19:38] VITALS: BP 159/70; RESP 18
[2016-08-19] MEDS: ATORVASTATIN 10 MG TAB PO SCH (20:22)
[2016-08-19] MEDS: TAMSULOSIN (SR) 0.4 MG CAP PO SCH (20:22)
[2016-08-19] MEDS: traZODone 100 MG TAB PO SCH (21:00)
[2016-08-19 21:34] LABS: ABNORMAL PROTEIN BAND 1 0.2 g/dL (NONE DETECTED); ALBUMIN 2.7 g/dL (3.8-4.8)
[2016-08-19] MEDS: D5-NS + KCL 20 MEQ 1,000 ML IV SCH (22:06)
[2016-08-19] MEDS: SOD FERRIC GLUC COMPLX 125 MG in SOD CHLORIDE 0.9% 100 ML IVPB SCH (22:06)
[2016-08-19 22:42] VITALS: BP 141/68
[2016-08-20] MEDS: D5-NS + KCL 20 MEQ 1,000 ML IV SCH (02:30)
--- NOTE | 2016-08-20 05:50 | PN ---
DATE: 08/19/2016 SUBJECTIVE: The patient is still short of breath and weak. OBJECTIVE: VITAL SIGNS: Temperature 99.4, blood pressure 159/70, pulse of 79, respiration rate 18, O2 saturation 95% on 2 liters. HEENT: Pupils equally round, reactive to light. Oropharynx clear. LUNGS: Have decreased basilar crackles, right greater than left. CARDIAC: Regular rate and rhythm, normal S1, S2. ABDOMEN: Active bowel sounds, soft, nondistended, nontender. EXTREMITIES: No clubbing, cyanosis, or edema. LABORATORY DATA: WBC 4.9, hemoglobin 9.2, hematocrit 28.7, platelet count 175, 000. The serum protein electrophoresis shows a restricted band of M-spike migrating in the gamma globulin region. The haptoglobin count is elevated at 247. Serum immunofixation shows an IgG kappa monoclonal band present. SHELBIE screen is negative. Cold agglutinin titer is 0. ESR was 16 yesterday. Sodium is 136, potassium 3.7, chloride 103, carbon dioxide 28, BUN 9, creatinine 0.51, glucose 92. ASSESSMENT AND PLAN: 1. Bronchitis/pneumonia. The patient improving very gradually on IV Levaquin. She is on day 4 of antibiotic. We will continue Levaquin under the direction of infectious disease senior science consultant. 2. Anemia. I obtained the most recent hemoglobin and hematocrit done at [facility] on 08/03/2016, and it was consistent with the patient's CBC on admission . It showed a hemoglobin of 11.9 and a hematocrit of 34.0. Of note was that the patient's sodium at that time was also low at 129. I discussed the possibility of acute GI bleed with the patient's tennis ball coverer hand, Dr. Diaz, and since the patient's H and H has been stable for the past 3 days and the patient is recovering from acute infection, Dr. Diaz suggested that we stabilize the patient and ask her to follow up with him as an outpatient. The patient also received IV iron yesterday. We will continue to monitor patient's H and H while she is here in the hospital with consideration for blood transfusion if the hematocrit drops below 25. Work up for other causes of anemia per Dr. Dick. 3. Hyponatremia appears to be resolving with the discontinuation of dyazide and improvement in her pulmonary function. The low urine sodium is not consistent with SIADH at this time, and the sodium has normalized today to 136. We will continue to monitor this and see if it persists after the IV fluid has been discontinued. Dictated By: PAULETTE PORTILLO MD DP/ROWDY Conf#: [id number] DID#: [id number] MTDD
[2016-08-20] MEDS: PANTOPRAZOLE 40 MG INJ IV SCH ×2 (06:00→17:47)
[2016-08-20 07:32] VITALS: BP 136/64; RESP 18
[2016-08-20] MEDS: CHLORDIAZEPOXIDE/CLIDINIUM CAP PO SCH ×4 (08:10→20:27)
--- NOTE | 2016-08-20 08:19 | PN ---
DATE: 08/20/2016 HEMATOLOGY PROGRESS NOTE SUBJECTIVE: The patient states she is feeling better. Still does have a moist cough. OBJECTIVE: VITAL SIGNS: Temperature 97.8, pulse 70 per minute, respirations 18, blood pressure 136/64, and pul se oximetry 93% on 2 liters. SKIN: Pale. No ecchymosis, no petechiae or rashes. HEENT: No mucosal lesions. No scleral icterus. NECK: Supple, no jugular venous distention or thyroid enlargement. CHEST: Bilateral rales, no rubs. HEART: Regular sinus rhythm, no S3, S4, or murmurs. ABDOMEN: Soft, no masses, no ascites. EXTREMITIES: Good range of motion. No clubbing, edema, or cyanosis. No palpable cords or Homans s ign. NEUROLOGIC: Normal. The serum protein electrophoresis does show an abnormal band in the 0.2 grams %. This is migrating into the gamma region. The immunofixation also demonstrates an IgG kappa monoclonal protein. ASSESSMENT: 1. Anemia, possible GI bleed, possible immunoproliferative disorder. 2. Shortness of breath and cough, possible pneumonia. PLAN: In spite of low IgG, the patient does have a monoclonal IgG spike which is a kappa IgG. This , coupled with the finding of a decrease in IgA, also suggests the possibility of an immunoprolifera tive disorder such as myeloma. At this time, we will request a serum for quantitative free kappa and lambda light chains. We will also obtain a urine immunofixation. We will obtain a metastatic bone survey as well to determine whether the patient has any lytic lesio ns consistent with myeloma. A bone scan is not an appropriate test for myeloma. Depending upon the results of the light chain studies, it may be necessary to perform a bone marrow aspiration and biopsy. Dictated By: SHERWIN HAGEN MD SR/NTS Conf#: [id number] DID#: [id number]
--- NOTE | 2016-08-20 12:02 | PN ---
DATE: 08/20/2016 SUBJECTIVE: The patient is still fatigued and weak. OBJECTIVE VITAL SIGNS: Temperature 97.8, blood pressure 136/64, pulse of 70, respiration rate 18, O2 saturation 93% on 2 liters nasal cannula. HEENT: Pupils equally round, reactive to light. Mild conjunctival pallor. Oropharynx clear. Dry lips. LUNGS: Still has slight basilar crackles, right greater than left. No wheezing. CARDIAC: Regular rate and rhythm. ABDOMEN: Active bowel sounds, soft, nondistended, nontender. EXTREMITIES: No clubbing, cyanosis, or edema. LABORATORY DATA: The stool occult blood is negative. Serum immunofixation shows IgG kappa monoclonal bands. ASSESSMENT AND PLAN: 1. Bronchitis/pneumonia. Continue current IV Levaquin. The patient is on day 5 of antibiotics. 2. Anemia. Current workup suggests some immunoproliferative disorder. Appreciate Dr. Dick's consultation. 3. Gastrointestinal issues. Will decrease pantoprazole to once a day and continue Librax. Plan is for followup with body rolling machine tender as an outpatient. Dictated By: PAULETTE PORTILLO MD DP/ROWDY Conf#: [id number] DID#: [id number] MTDD
[2016-08-20] MEDS: GUAIFENESIN/CODEINE 5ML CUP PO PRN ×2 (12:45→23:25)
--- NOTE | 2016-08-20 14:49 | RADRPT ---
PROCEDURE: XR BONE SURVEY. CLINICAL INDICATION: Anemia. Decreased IgG. Possible myeloma. TECHNIQUE: Multiple x-rays were obtained of the spine, pelvis, humeri, femora and skull. COMPARISON: None. FINDINGS: Spine: No lytic, sclerotic, or bone destructive lesion identified. No evidence for fracture. There is an upper thoracic dextroscoliosis. No sclerotic pedicles are seen. There is moderate spondylosi s at C5-6. There is disc space narrowing at L5-S1. Pelvis: No lytic, sclerotic, or bone destructive lesion identified. No evidence for fracture. Humeri: No lytic, sclerotic, or bone destructive lesion identified. No evidence for fracture. There is a small degenerative cyst of the subcortical left humeral head. Femora: No lytic, sclerotic, or bone destructive lesion identified. No evidence for fracture. There is a degenerative ossification posterior to the left distal femur. This is possibly a loose body. Legs: There is a faint lucency within the medullary space of the left distal tibial shaft seen on b oth the AP and lateral view. I cannot exclude a myeloma lesion. Consider MRI for further evaluatio n if clinically indicated. No abnormalities of the right tibia or fibula identified. Forearms: No lytic, sclerotic, or bone destructive lesion identified. No evidence for fracture. Skull: No lytic, sclerotic, or bone destructive lesion identified. No evidence for fracture. IMPRESSION: 1. Irregular lucency within the left distal tibial shaft medullary space. The area could be focal osteoporosis but I cannot exclude a myeloma lesion. Consider MRI if clinically indicated for furth er evaluation. 2. Probable left knee loose body. 3. Spinal spondylosis. RPTAT: XX .Diego Henriquez MD, Date Time Electronically viewed and signed by .Diego Henriquez MD, on 08/20/2016 14:49 .T/
--- NOTE | 2016-08-20 15:43 | PN ---
DATE: 08/20/2016 SUBJECTIVE: No acute changes. The patient is alert, sitting up in a chair, feels much better. Loo ks comfortable, no fevers. No CBC this morning. ANTIMICROBIALS: Levaquin. PHYSICAL EXAMINATION: GENERAL: Well-developed, elderly woman who is alert, in no distress. HEENT: Head atraumatic, normocephalic. Sclerae anicteric. Buccal mucosa pink. NECK: Supple. CHEST: Rise symmetrical. Breath sounds clear. HEART: S1, S2. ABDOMEN: Soft. Bowel sounds present. EXTREMITIES: Without cyanosis or edema. ASSESSMENT: 1. Resolving pneumonia. 2. Acute on chronic anemia. 3. History of mitral valve prolapse. 4. History of hypertension. 5. ALLERGY TO SULFA, ERYTHROMYCIN, DOXYCYCLINE, CLINDAMYCIN, AMOXICILLIN. PLAN: The patient remains stable. We are going to change Levaquin to p.o. Continue present care. Follow hematology recommendations. Dictated By: BOWEN SALEH FLIGHT TEST SHOP MECHANIC for CANDACE SPENCER/ROWDY Conf#: [id number] DID#: [id number]
[2016-08-20 20:00] VITALS: BP 155/71; RESP 20
[2016-08-20] MEDS: ATORVASTATIN 10 MG TAB PO SCH (20:27)
[2016-08-20] MEDS: TAMSULOSIN (SR) 0.4 MG CAP PO SCH (20:28)
[2016-08-20] MEDS: traZODone 100 MG TAB PO SCH ×2 (20:28→20:33)
[2016-08-20] MEDS: SOD FERRIC GLUC COMPLX 125 MG in SOD CHLORIDE 0.9% 100 ML IVPB SCH (23:25)
--- NOTE | 2016-08-21 01:09 | RADRPT ---
PROCEDURE: Pre and post contrast MRI of the left ankle. CLINICAL INDICATION: Left ankle pain. Multiple myeloma. TECHNIQUE: Pre and post contrast MRI of the left ankle, with axial, sagittal and coronal reformatt ed images. The and postcontrast T1-weighted images, T2-weighted images, proton density images and fa t saturation techniques employed. 10 cc Magnevist IV gadolinium contrast were employed. COMPARISON: None. FINDINGS: No acute fracture, dislocation or marrow replacement process. Likely osteochondral defect at the la teral talar dome with subchondral edema. This measures about 7 x 7 mm in the axial plane and about 8 mm in depth. At the medial posterior talar dome there is a 2 x 2 x 2 mm small osteochondral defect . Mild degenerative changes at the third tarsometatarsal joint. Joint spaces are otherwise preserve d. Soft tissues are unremarkable. No joint effusion. Plantar and posterior dorsal calcaneal enthesophy willian. No evident lytic lesions to suggest multiple myeloma. No evident enhancing mass. IMPRESSION: 1. 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 2. No evident lytic lesions to suggest multiple myeloma. 3. Otherwise, no acute process in the left ankle. RPTAT: [facility] Physician Jeimy Date Time Electronically viewed and signed by Physician Jeimy on 08/21/2016 01:09 BRI/
[2016-08-21] MEDS: D5-NS + KCL 20 MEQ 1,000 ML IV SCH ×2 (01:49→18:13)
[2016-08-21] MEDS: PANTOPRAZOLE 40 MG INJ IV SCH ×3 (06:00→18:00)
[2016-08-21] MEDS ORDERED: LEVOFLOXACIN 500 MG TAB PO SCH (06:00)
[2016-08-21] MEDS: CHLORDIAZEPOXIDE/CLIDINIUM CAP PO SCH ×4 (06:23→20:31)
[2016-08-21 07:39] VITALS: BP 137/65; RESP 20
--- NOTE | 2016-08-21 08:18 | RADRPT ---
PROCEDURE: MRI of the left lower extremity without and with IV contrast CLINICAL INDICATION: Left lower extremity pain, concern for myeloma TECHNIQUE: Multiplanar multisequence images of the left lower extremity without and with IV contra st utilizing multiple pulse sequences. 10 cc of Magnevist IV contrast was used. Images were interpr eted at a independent PACS workstation. COMPARISON: MRI of the left ankle performed same day and CT of the chest August 16, 2016 FINDINGS: There is no stress or traumatic fracture. Bone marrow signal is normal. No lytic lesion to suggest myeloma is noted throughout the right or left lower extremity below the knee to the ankle. There is an osteochondral defect at the talar dome laterally, as seen on the MRI of the ankle. There is mild subcutaneous soft tissue swelling noted. There is some prominence of the intramuscula r veins within the soleus muscle with mild edema, a nonspecific finding. This is also seen on the r ight. There is no muscle or tendon tear. IMPRESSION: 1. No evidence of bone lesion to suggest multiple myeloma. Osteochondral defect at the lateral aspe ct of the left talar dome is noted, as seen on the MRI of the ankle. 2. Mild subcutaneous soft tissue swelling without drainable fluid collection. Note is made of sligh t prominence of the intramuscular veins throughout the calf, particularly in the soleus muscle, john lar bilaterally. This could reflect some venous insufficiency though if there is concern for deep v enous thrombus, an ultrasound is recommended for further evaluation. 3. No evidence of muscle or tendon tear. RPTAT: [facility] .Jovani Shin MD, Date Time Electronically viewed and signed by .Jovani Shin MD, MD on 08/21/2016 08:18 .K/
--- NOTE | 2016-08-21 16:30 | PN ---
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 If ration is high >1.8 she would likely benefit from bone marrow biopsy for appropriate staging. If ratio is low, then monoclonal gammopathy likely represents a low risk MGUS Problems: Subjective 24 Hr Interval Summary Free Text/Dictation Patient awake, alert responsive Constitutional: No chills, No diaphoresis, No disoriented, No febrile, No improved, No no complaints, No other, No poor po, No requiring IVF, No requiring O2 Eyes: No discharge, No no complaints, No other, No pain, No redness, No visual change Exam/Review of Systems Vital Signs Vitals Vital Signs Date Time Temp Pulse Resp B/P Pulse Ox O2 Delivery O2 Flow Rate FiO2 08/21/16 15:14 2.0 08/21/16 08:00 Nasal Cannula 08/21/16 07:39 97.9 80 20 137/65 93 Intake and Output 08/20/16 08/20/16 08/21/16 15:00 23:00 07:00 Intake Total 880 ml 760 ml Output Total 1250 ml 300 ml Balance -370 ml 460 ml Exam Constitutional: alert, oriented, well developed Psych: nl mood/affect, no complaints Head: atraumatic, normocephalic Eyes: EOMI, nl lids Neck: non-tender, supple Respiratory: clear to auscultation, normal air movement Cardiovascular: nl pulses, regular rate and rhythm Gastrointestinal: nl liver, spleen, non-tender, soft Extremities: normal pulses Neurological: VOCATIONAL EVALUATOR II-XII intact, nl mental status Results Result Diagram: 08/19/1613 08/19/16712 Medications Medications Current Medications Tamsulosin HCl (Flomax) 0.4 mg HS PO Last administered on 08/20/16t 20:28; Admin Dose 0.4 MG; Start 08/16/16 at 21:00 Trazodone HCl (Desyrel) 100 mg QHS PO Last administered on 08/17/16 20:28; Admin Dose 100 MG; Start 08/16/16 at 21:00 Atorvastatin Calcium (Lipitor) 10 mg DAILY@21 PO Last administered on 20:27; Admin Dose 10 MG; Start 08/16/16 at 21:00 Clonidine 0.1 mg 0.1 mg Q4 PRN PO sbp >160; Start 08/16/16 at 18:30 Potassium Chloride/Dextrose/ Sod Cl (D5-NS + KCl 20 Meq) 1,000 ml @ 50 mls/hr Q20H IV Last administered on 08/21/16 01:49; Admin Dose 50 MLS/HR; Start 08/16 at 18:30 Guaifenesin/ Codeine Phosphate (Robitussin Ac Liquid Cup) 5 ml Q6H PRN PO COUGH Last administered on 08/20/16 12:45; Admin Dose 5 ML; Start 08/17/16 at 08:30 Guaifenesin/ Codeine Phosphate (Robitussin Ac Liquid Cup) 10 ml Q6H PRN PO COUGH Last administered on 08/20/16 23:25; Admin Dose 10 ML; Start 08/17/16 at 08:30 Pantoprazole 40 mg 40 mg BID@06,18 IV ; Start 08/17/16 at 18:00 Ferric Sodium Gluconate Complex/ Sodium Chloride (Ferrlecit/NS) 110 ml @ 110 mls/hr Q24H IVPB Last administered on 08/20/16 23:25; Admin Dose 110 MLS/HR; Start 08/18/16 at 20:00; Stop 08/22/16 at 20:59 Levofloxacin (Levaquin) 250 mg DAILY@06 PO ; Start 08/22/16 at 06:00 DEBORAH CABALLERO MD Aug 21, 2016 16:30
--- NOTE | 2016-08-21 17:53 | PN ---
DATE: 08/21/2016 SUBJECTIVE: The patient appears tired and weak. Complains of pain of the IV line that was removed day prior to yesterday on the right hand. Her current IV line on the left hand is not bothering her. OBJECTIVE: VITAL SIGNS: Temperature 97.9, blood pressure 137/65, pulse of 80, respiration rate 20, O2 saturation 93% on 2 liters. HEENT: Pupils equally round, reactive to light. Oropharynx clear, dry lips. CHEST: Lungs with bibasilar crackles. CARDIAC: Regular rate and rhythm. ABDOMEN: Active bowel sounds, soft, nondistended, nontender. EXTREMITIES: No clubbing, cyanosis, or edema. IMAGING STUDIES: A bone survey xrays done yesterday shows irregular lucency within the left distal tibial shaft medullary space, which could be consistent with focal osteoporosis but cannot exclude a myeloma lesion. Probable left knee loose body as well as spinal spondylosis. The MRI that was ordered last night of the ankle and the distal tibia shows osteochondral defect at the lateral aspect of the left talar dome, but no evidence of lytic bone lesions to suggest multiple myeloma. ASSESSMENT AND PLAN: 1. Pneumonitis. The patient is on day 6 of antibiotics. We will recheck a chest x-ray in the morning to see if the interstitial prominence is improved. 2. Anemia may be due to gastrointestinal disorder, but hematology workup is suggesting a secondary causes of anemia. Continue workup per Dr. Dick. 3. Right hand pain. We will check a venous Doppler study to rule out DVT and apply hot packs for symptomatic relief. Dictated By: PAULETTE WITT/ROWDY Conf#: [id number] DID#: [id number] RICHY
--- NOTE | 2016-08-21 18:16 | RADRPT ---
PROCEDURE: US upper extremity Venous. CLINICAL INDICATION: Right arm pain TECHNIQUE: Multiple sonographic images of the right upper extremity venous system was obtained uti lizing grayscale, color-flow, compressive sonography and doppler imaging with augmentation. The jarad ges were reviewed on a PACS workstation. COMPARISON: None. FINDINGS: There is normal compressibility and flow within the right internal jugular vein, subclavian vein, ax illary vein, brachial, basilic, cephalic, radial and ulnar veins. RPTAT: AA IMPRESSION: No sonographic evidence for venous thrombosis. .Marcus Jenkins MD, MD Date Time Electronically viewed and signed by .Marcus Jenkins MD, on 08/21/2016 18:15 .S/
[2016-08-21 19:36] VITALS: BP 143/64; RESP 18
--- NOTE | 2016-08-21 20:02 | CONS ---
Date/Time of Note Date/Time of Note DATE: 08/21/16 TIME: 20:01 Assessment/Plan Assessment/Plan Chief Complaint/Hosp Course SUBJECTIVE: No acute changes. Looks comfortable, no fevers. ANTIMICROBIALS: Levaquin. PHYSICAL EXAMINATION: GENERAL: Well-developed, elderly woman who is in no distress. HEENT: Head atraumatic, normocephalic. Sclerae anicteric. Buccal mucosa pink. NECK: Supple. CHEST: Rise symmetrical. Breath sounds clear. HEART: S1, S2. ABDOMEN: Soft. Bowel sounds present. EXTREMITIES: Without cyanosis or edema. ASSESSMENT: 1. Resolving pneumonia. 2. Acute on chronic anemia. 3. History of mitral valve prolapse. 4. History of hypertension. 5. ALLERGY TO SULFA, ERYTHROMYCIN, DOXYCYCLINE, CLINDAMYCIN, AMOXICILLIN. PLAN: The patient remains stable. Continue present care, abx. Follow hematology recommendations. DW staff Problems: Consultation Date/Type/Reason Admit Date/Time Aug 16, 2016 at 15:52 Initial Consult Date Type of Consultation: ID Exam/Review of Systems Vital Signs Vitals Vital Signs Date Time Temp Pulse Resp B/P Pulse Ox O2 Delivery O2 Flow Rate FiO2 08/21/16 19:51 2.0 08/21/16 19:36 99.2 75 18 143/64 97 08/21/16 08:00 Nasal Cannula Intake and Output 08/20/16 08/20/16 08/21/16 15:00 23:00 07:00 Intake Total 880 ml 760 ml Output Total 1250 ml 300 ml Balance -370 ml 460 ml Results Result Diagram: 08/19/16 0713 08/19/16 0713 Medications Medications Current Medications Tamsulosin HCl (Flomax) 0.4 mg HS PO Last administered on 08/20/16 20:28; Admin Dose 0.4 MG; Start 08/16/16 at 21:00 Trazodone HCl (Desyrel) 100 mg QHS PO Last administered on 08/17/16 20:28; Admin Dose 100 MG; Start 08/16/16 at 21:00 Atorvastatin Calcium (Lipitor) 10 mg DAILY@21 PO Last administered on 20:27; Admin Dose 10 MG; Start 08/16/16 at 21:00 Clonidine 0.1 mg 0.1 mg Q4 PRN PO sbp >160; Start 08/16/16 at 18:30 Potassium Chloride/Dextrose/ Sod Cl (D5-NS + KCl 20 Meq) 1,000 ml @ 50 mls/hr Q20H IV Last administered on 08/21/16 01:49; Admin Dose 50 MLS/HR; Start 08/16 at 18:30 Guaifenesin/ Codeine Phosphate (Robitussin Ac Liquid Cup) 5 ml Q6H PRN PO COUGH Last administered on 08/20/16 12:45; Admin Dose 5 ML; Start 08/17/16 at 08:30 Guaifenesin/ Codeine Phosphate (Robitussin Ac Liquid Cup) 10 ml Q6H PRN PO COUGH Last administered on 08/20/16 23:25; Admin Dose 10 ML; Start 08/17/16 at 08:30 Pantoprazole 40 mg 40 mg BID@06,18 IV ; Start 08/17/16 at 18:00 Ferric Sodium Gluconate Complex/ Sodium Chloride (Ferrlecit/NS) 110 ml @ 110 mls/hr Q24H IVPB Last administered on 08/20/16 23:25; Admin Dose 110 MLS/HR; Start 08/18/16 at 20:00; Stop 08/22/16 at 20:59 Levofloxacin (Levaquin) 250 mg DAILY@06 PO ; Start 08/22/16 at 06:00 BOWEN SALEH NP Aug 21, 2016 20:02
[2016-08-21] MEDS: SOD FERRIC GLUC COMPLX 125 MG in SOD CHLORIDE 0.9% 100 ML IVPB SCH (20:29)
[2016-08-21] MEDS: traZODone 100 MG TAB PO SCH (20:30)
[2016-08-21] MEDS: ATORVASTATIN 10 MG TAB PO SCH (20:31)
[2016-08-21] MEDS: TAMSULOSIN (SR) 0.4 MG CAP PO SCH (20:31)
[2016-08-21] MEDS: GUAIFENESIN/CODEINE 5ML CUP PO PRN (20:34)
[2016-08-22] MEDS: D5-NS + KCL 20 MEQ 1,000 ML IV SCH ×2 (02:12→14:30)
[2016-08-22] MEDS: PANTOPRAZOLE 40 MG INJ IV SCH ×2 (05:00→16:28)
[2016-08-22] MEDS: LEVOFLOXACIN 250 MG TAB PO SCH (06:20)
[2016-08-22 07:41] VITALS: BP 140/63; RESP 20
[2016-08-22] MEDS: CHLORDIAZEPOXIDE/CLIDINIUM CAP PO SCH ×4 (08:22→21:22)
[2016-08-22 10:23] LABS: ADD SCAN DIFF NO
[2016-08-22 10:26] LABS: BASOPHILS % 0.5 % (0.0-2.0); EOSINOPHILS # 0.2 10^3/ul (0.0-0.5); EOSINOPHILS % 2.4 % (0.0-7.0); HEMATOCRIT 29.7 % (37.0-47.0); HEMOGLOBIN 9.8 g/dl (12.0-16.0); LYMPHOCYTES # 1.5 10^3/ul (0.8-2.9); LYMPHOCYTES % 17.1 % (15.0-51.0); MEAN CORPUSCULAR HEMOGLOBIN 29.3 pg (29.0-33.0); MEAN CORPUSCULAR VOLUME 88.7 fl (82.0-101.0); MEAN PLATELET VOLUME 10.5 fl (7.4-10.4); MONOCYTE # 0.9 10^3/ul (0.3-0.9); MONOCYTES % 10.8 % (0.0-11.0); NEUTROPHIL # 5.7 10^3/ul (1.6-7.5); NEUTROPHILS % 65.6 % (39.0-77.0); PLATELET COUNT 298 10^3/UL (140-415); RED BLOOD COUNT 3.35 10^6/ul (4.20-5.40); RED CELL DISTRIBUTION WIDTH 12.7 % (11.5-14.5); WHITE BLOOD COUNT 8.7 10^3/ul (4.8-10.8)
[2016-08-22 10:51] LABS: POTASSIUM 3.6 mmol/L (3.5-5.1)
[2016-08-22 10:54] LABS: CREATININE 0.52 mg/dl (0.44-1.00)
[2016-08-22 10:55] LABS: CALCIUM 8.7 mg/dl (8.4-10.2)
--- NOTE | 2016-08-22 15:31 | PN ---
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 If ration is high >1.8 she would likely benefit from bone marrow biopsy for appropriate staging. 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 If ratio is high >1.65, as per 2010 IMW[facility] guidelines on MGUS, she would likely benefit from bone marrow biopsy for appropriate staging. If ratio is low <1.65, then monoclonal gammopathy likely represents a low risk MGUS I suspect the latter. Dr Hubbard to resume care tomorrow. Subjective 24 Hr Interval Summary Free Text/Dictation Patient awake alert and oriented. She reports her hand is feeling better Exam/Review of Systems Vital Signs Vitals Vital Signs Date Time Temp Pulse Resp B/P Pulse Ox O2 Delivery O2 Flow Rate FiO2 08/22/16 12:37 2.0 08/22/16 08:00 Nasal Cannula 08/22/16 07:41 98.3 69 20 140/63 98 Intake and Output 08/21/16 08/21/16 08/22/16 15:00 23:00 07:00 Intake Total 1550 ml 620 ml Output Total 0 ml 600 ml Balance 1550 ml 20 ml Exam Constitutional: alert, oriented Psych: no complaints Head: atraumatic, normocephalic Eyes: EOMI, nl conjunctiva ENMT: nl external ears & nose, nl lips & teeth Neck: non-tender, supple Respiratory: clear to auscultation, normal air movement Cardiovascular: regular rate and rhythm Gastrointestinal: nl liver, spleen, non-tender, soft Genitourinary - Female: nl adnexae Neurological: DIETARY TECH II-XII intact, nl mental status Results Result Diagram: 08/22/16 1000 08/22/16 1000 Results 24 hrs Laboratory Tests Test 08/22/16 10:00 White Blood Count 8.7 # Red Blood Count 3.35 L Hemoglobin 9.8 L Hematocrit 29.7 L Mean Corpuscular Volume 88.7 Mean Corpuscular Hemoglobin 29.3 Mean Corpuscular Hemoglobin Concent 33.0 Red Cell Distribution Width 12.7 Platelet Count 298 # Mean Platelet Volume 10.5 H Neutrophils % 65.6 Lymphocytes % 17.1 Monocytes % 10.8 Eosinophils % 2.4 Basophils % 0.5 Nucleated Red Blood Cells % 0.0 Neutrophils # 5.7 Lymphocytes # 1.5 Monocytes # 0.9 Eosinophils # 0.2 Basophils # 0.0 Nucleated Red Blood Cells # 0.0 Sodium Level 135 Potassium Level 3.6 Chloride Level 99 Carbon Dioxide Level 27 Anion Gap 13 Blood Urea Nitrogen 7 Creatinine 0.52 Glucose Level 123 Calcium Level 8.7 Medications Medications Current Medications Tamsulosin HCl (Flomax) 0.4 mg HS PO Last administered on 08/21/16 20:31; Admin Dose 0.4 MG; Start 08/16/16 at 21:00 Trazodone HCl (Desyrel) 100 mg QHS PO Last administered on 08/17/16 20:28; Admin Dose 100 MG; Start 08/16/16 at 21:00 Atorvastatin Calcium (Lipitor) 10 mg DAILY@21 PO Last administered on 20:31; Admin Dose 10 MG; Start 08/16/16 at 21:00 Clonidine 0.1 mg 0.1 mg Q4 PRN PO sbp >160; Start 08/16/16 at 18:30 Potassium Chloride/Dextrose/ Sod Cl (D5-NS + KCl 20 Meq) 1,000 ml @ 50 mls/hr Q20H IV Last administered on 08/22/16 02:12; Admin Dose 50 MLS/HR; Start 08/16 at 18:30 Guaifenesin/ Codeine Phosphate (Robitussin Ac Liquid Cup) 5 ml Q6H PRN PO COUGH Last administered on 08/20/16 12:45; Admin Dose 5 ML; Start 08/17/16 at 08:30 Guaifenesin/ Codeine Phosphate (Robitussin Ac Liquid Cup) 10 ml Q6H PRN PO COUGH Last administered on 08/21/16 20:34; Admin Dose 10 ML; Start 08/17/16 at 08:30 Pantoprazole 40 mg 40 mg BID@06,18 IV ; Start 08/17/16 at 18:00 Ferric Sodium Gluconate Complex/ Sodium Chloride (Ferrlecit/NS) 110 ml @ 110 mls/hr Q24H IVPB Last administered on 08/21/16 20:29; Admin Dose 110 MLS/HR; Start 08/18/16 at 20:00; Stop 08/22/16 at 20:59 Levofloxacin (Levaquin) 250 mg DAILY@06 PO Last administered on 08/22/16 06:20 ; Admin Dose 250 MG; Start 08/22/16 at 06:00 DEBORAH CABALLERO MD Aug 22, 2016 15:31
--- NOTE | 2016-08-22 18:49 | PN ---
DATE: 08/22/2016 SUBJECTIVE: Patient awake, alert, still quite weak, but the right hand pain is improved. OBJECTIVE: VITAL SIGNS: Temperature 98.3, blood pressure 140/63, pulse of 69, respiration rate 20, O2 saturation 98% on 2 liters nasal cannula. HEENT: Pupils equally round, reactive. Oropharynx clear. CHEST: Decreased crackles at the bases. CARDIAC: Regular rate and rhythm, normal S1, S2. ABDOMEN: Active bowel sounds, soft, nondistended, nontender. EXTREMITIES: No clubbing, cyanosis or edema. LABORATORY DATA: WBC 8.7, hemoglobin 9.8, hematocrit 29.7, platelet count 298, 000. Her sodium is 135, potassium 3.6, BUN is 7, creatinine 0.52, glucose 123, calcium 8.7. ASSESSMENT AND PLAN: 1. Pneumonia, better visualized on a chest CT. Patient will be on day 7 of IV antibiotics. I will recheck the pulmonary infiltrate with a chest CT. 2. Anemia. Current workup pending. At this time, the urine protein electrophoresis and the serum free light chain tests are pending. These test results may suggest the need for a bone marrow biopsy or not. So, we will need to await further hematology workup per hematology/oncology. 3. Gastrointestinal problems, stable at this point on pantoprazole and Librax. 4. Disposition. The patient is still extremely weak and may benefit from a short stay at a snf facility after discharge from here, for convalescent purposes. For now, I will ask physical therapy to start her on ambulation. Dictated By: PAULETTE PORTILLO MD DP/ROWDY Conf#: [id number] DID#: [id number] RICHY
[2016-08-22 19:00] VITALS: BP 158/71; RESP 20
--- NOTE | 2016-08-22 19:52 | CONS ---
Date/Time of Note Date/Time of Note DATE: 08/22/16 TIME: 19:51 Assessment/Plan Assessment/Plan Chief Complaint/Hosp Course SUBJECTIVE: No acute changes. Looks comfortable, still coughing, no fevers. ANTIMICROBIALS: Levaquin. PHYSICAL EXAMINATION: GENERAL: Well-developed, elderly woman who is in no distress. HEENT: Head atraumatic, normocephalic. Sclerae anicteric. Buccal mucosa pink. NECK: Supple. CHEST: Rise symmetrical. Breath sounds clear. HEART: S1, S2. ABDOMEN: Soft. Bowel sounds present. EXTREMITIES: Without cyanosis or edema. ASSESSMENT: 1. Resolving pneumonia. 2. Acute on chronic anemia. 3. History of mitral valve prolapse. 4. History of hypertension. 5. ALLERGY TO SULFA, ERYTHROMYCIN, DOXYCYCLINE, CLINDAMYCIN, AMOXICILLIN. PLAN: The patient remains stable. Continue antibiotics. Follow hematology recommendations. [facility] staff/pt/son at bedside Problems: Consultation Date/Type/Reason Admit Date/Time Aug 16, 2016 at 15:52 Type of Consultation: ID Exam/Review of Systems Vital Signs Vitals Vital Signs Date Time Temp Pulse Resp B/P Pulse Ox O2 Delivery O2 Flow Rate FiO2 08/22/16 12:37 2.0 08/22/16 08:00 Nasal Cannula 08/22/16 07:41 98.3 69 20 140/63 98 Intake and Output 08/21/16 08/21/16 08/22/16 14:59 22:59 06:59 Intake Total 1550 ml 620 ml Output Total 0 ml 600 ml Balance 1550 ml 20 ml Results Result Diagram: 08/22/16 1000 08/22/16 1000 Results 24 hrs Laboratory Tests Test 08/22/16 10:00 White Blood Count 8.7 # Red Blood Count 3.35 L Hemoglobin 9.8 L Hematocrit 29.7 L Mean Corpuscular Volume 88.7 Mean Corpuscular Hemoglobin 29.3 Mean Corpuscular Hemoglobin Concent 33.0 Red Cell Distribution Width 12.7 Platelet Count 298 # Mean Platelet Volume 10.5 H Neutrophils % 65.6 Lymphocytes % 17.1 Monocytes % 10.8 Eosinophils % 2.4 Basophils % 0.5 Nucleated Red Blood Cells % 0.0 Neutrophils # 5.7 Lymphocytes # 1.5 Monocytes # 0.9 Eosinophils # 0.2 Basophils # 0.0 Nucleated Red Blood Cells # 0.0 Sodium Level 135 Potassium Level 3.6 Chloride Level 99 Carbon Dioxide Level 27 Anion Gap 13 Blood Urea Nitrogen 7 Creatinine 0.52 Glucose Level 123 Calcium Level 8.7 Medications Medications Current Medications Tamsulosin HCl (Flomax) 0.4 mg HS PO Last administered on 08/21/16 20:31; Admin Dose 0.4 MG; Start 08/16/16 at 21:00 Trazodone HCl (Desyrel) 100 mg QHS PO Last administered on 08/17/16 20:28; Admin Dose 100 MG; Start 08/16/16 at 21:00 Atorvastatin Calcium (Lipitor) 10 mg DAILY@21 PO Last administered on 20:31; Admin Dose 10 MG; Start 08/16/16 at 21:00 Clonidine 0.1 mg 0.1 mg Q4 PRN PO sbp >160; Start 08/16/16 at 18:30 Potassium Chloride/Dextrose/ Sod Cl (D5-NS + KCl 20 Meq) 1,000 ml @ 50 mls/hr Q20H IV Last administered on 08/22/16 02:12; Admin Dose 50 MLS/HR; Start 08/16 at 18:30 Guaifenesin/ Codeine Phosphate (Robitussin Ac Liquid Cup) 5 ml Q6H PRN PO COUGH Last administered on 08/20/16 12:45; Admin Dose 5 ML; Start 08/17/16 at 08:30 Guaifenesin/ Codeine Phosphate (Robitussin Ac Liquid Cup) 10 ml Q6H PRN PO COUGH Last administered on 08/21/16 20:34; Admin Dose 10 ML; Start 08/17/16 at 08:30 Pantoprazole 40 mg 40 mg BID@06,18 IV Last administered on 08/22/16 16:28; Admin Dose 40 MG; Start 08/17/16 at 18:00 Ferric Sodium Gluconate Complex/ Sodium Chloride (Ferrlecit/NS) 110 ml @ 110 mls/hr Q24H IVPB Last administered on 08/21/16 20:29; Admin Dose 110 MLS/HR; Start 08/18/16 at 20:00; Stop 08/22/16 at 20:59 Levofloxacin (Levaquin) 250 mg DAILY@06 PO Last administered on 08/22/16 06:20 ; Admin Dose 250 MG; Start 08/22/16 at 06:00 BOWEN SALEH NP Aug 22, 2016 19:52
[2016-08-22] MEDS: traZODone 100 MG TAB PO SCH (21:00)
[2016-08-22] MEDS: SOD FERRIC GLUC COMPLX 125 MG in SOD CHLORIDE 0.9% 100 ML IVPB SCH (21:22)
[2016-08-22] MEDS: TAMSULOSIN (SR) 0.4 MG CAP PO SCH (21:22)
[2016-08-22] MEDS: ATORVASTATIN 10 MG TAB PO SCH (21:22)
[2016-08-22] MEDS: GUAIFENESIN/CODEINE 5ML CUP PO PRN (21:23)
[2016-08-23] MEDS: D5-NS + KCL 20 MEQ 1,000 ML IV SCH ×2 (02:00→22:14)
[2016-08-23] MEDS: PANTOPRAZOLE 40 MG INJ IV SCH (05:08)
[2016-08-23] MEDS: LEVOFLOXACIN 250 MG TAB PO SCH (06:14)
[2016-08-23] MEDS: CHLORDIAZEPOXIDE/CLIDINIUM CAP PO SCH ×4 (07:29→21:00)
[2016-08-23 07:41] VITALS: BP 133/60; RESP 18
--- NOTE | 2016-08-23 08:27 | CONS ---
DATE OF ADMISSION: 08/16/2016 DATE OF CONSULTATION: 08/23/2016 SUBJECTIVE: The patient states he is less short of breath, still has a cough, but not as productive. He is complaining of pain in the left hand where IV was previously inserted. OBJECTIVE VITAL SIGNS: Temperature 98.2, pulse 74, respirations 20, blood pressure is 128 /71, pulse oximetry 97% on 2 liters. SKIN: Pale. No ecchymosis, no petechiae or rashes. HEENT: No mucosal lesions. No scleral icterus. NECK: Supple. No jugular venous distention or thyroid enlargement. CHEST: Chest is clearing, fewer rales or rhonchi heard. HEART: Regular sinus rhythm, no S3, S4 or murmurs. ABDOMEN: Soft, no masses, no ascites. EXTREMITIES: Good range of motion. No clubbing or cyanosis. There is edema of the dorsal aspect of the left hand. There is no erythema, no palpable cords. NEUROLOGIC: Normal. DISCUSSION: Venous study of the upper extremities does not show any deep vein thrombosis. Metastatic survey skeletal survey and MRI of the lower extremity failed to show any changes consistent with myeloma. Free kappa and lambda serum light chains and urine for light chains pending. ASSESSMENT: 1. Anemia, possibly due to gastrointestinal bleed, rule out immunoprolifrative disorder disorder. 2. Shortness of breath with cough, possible pneumonia, resolving. 3. Local cellulitis due to previous IV infiltration in dorsal aspect of the left hand. PLAN: Still awaiting the quantitative free kappa and lambda light chains as well as a urine for light chains. Based on this, we will decide on whether to proceed with a bone marrow, although this could be a nonsecreting myeloma as well, although patient does have the IgG kappa monoclonal band seen on the immunofixation as well as an abnormal band in the gamma region on the protein electrophoresis. Dictated By: SHERWIN HAGEN MD, SR/NTS Conf#: [id number] DID#: [id number] MTDD
[2016-08-23] MEDS: ACETAMINOPHEN 325 MG TAB PO PRN ×2 (12:46→22:20)
[2016-08-23] MEDS: ZYVOX 600 MG TAB PO SCH ×2 (14:37→22:11)
--- NOTE | 2016-08-23 16:44 | PN ---
DATE: 08/23/2016 SUBJECTIVE: Patient is alert, complaining of left hand pain. She has some swelling on her left horn d from infiltration of IV. ANTIMICROBIALS: She is on IV Levaquin. PHYSICAL EXAMINATION: GENERAL: This is a fragile, elderly woman who is awake, in no distress. HEENT: Head atraumatic, normocephalic. Sclerae anicteric. Buccal mucosa pink. NECK: Supple. CHEST: Rise symmetrical. Breath sounds diminished at the bases. HEART: S1, S2. ABDOMEN: Soft. Bowel tones present. EXTREMITIES: Without cyanosis. Left hand with some erythema and swelling. ASSESSMENT: 1. Pneumonia, resolving. 2. Left hand cellulitis secondary to IV infiltration. 3. Anemia. 4. History of mitral valve prolapse. 5. ALLERGY TO MULTIPLE ANTIBIOTICS. PLAN: We are going to add Zyvox or vancomycin to the regimen for her cellulitis. Keep left upper e xtremity elevated and apply warm moist compresses to the hand. Above was discussed with patient and nurse at bedside. Dictated By: BOWEN SALEH INSTRUCTIONAL TECHNOLOGY SPECIALIST for [employer] SPENCER/ROWDY Conf#: [id number] DID#: [id number]
[2016-08-23] MEDS: PANTOPRAZOLE (EC) 40 MG TAB PO SCH (18:00)
[2016-08-23 20:32] VITALS: BP 148/66; RESP 18
[2016-08-23] MEDS: traZODone 100 MG TAB PO SCH (21:00)
[2016-08-23] MEDS ORDERED: IOHEXOL 300MG/ML 150 ML BTL ONE (21:36)
[2016-08-23] MEDS ORDERED: SOD CHLORIDE 0.9% 100 ML ONE (21:36)
[2016-08-23] MEDS: ATORVASTATIN 10 MG TAB PO SCH (22:11)
[2016-08-23] MEDS: TAMSULOSIN (SR) 0.4 MG CAP PO SCH (22:11)
[2016-08-23] MEDS: GUAIFENESIN/CODEINE 5ML CUP PO PRN (22:20)
--- NOTE | 2016-08-24 01:28 | PN ---
DATE: 08/24/2016 SUBJECTIVE: Patient is awake and alert. She feels very weak. She is still coughing; however, she states that she is improved as compared to when she was admitted approximately 8 days ago. OBJECTIVE: CHEST: Now clear to A and P. HEART: Normal sinus rhythm. No murmur. No enlargement. ABDOMEN: Liver, kidneys, spleen are not palpable. Bowel sounds are normal. There are no intraabdo olinda masses or bruits. EXTREMITIES: No ankle edema. Good dorsal pedal pulses bilaterally. VITAL SIGNS: She is afebrile, blood pressure is 140/66. LABORATORY DATA: Her last hemoglobin on 08/22 was 9.8 with a hematocrit of 29.7. On 08/22, her roberta ctrolytes were sodium 125, potassium 3.6, chloride 99, carbon dioxide 27, BUN 7, and creatinine 0.52 . Her sugar was 123 and her calcium was 8.7. Stool for occult blood was negative. Serum immunofix ation revealed immunoglobulin G monoclonal present. SHELBIE screen: No results are back y et. The kappa light chain is elevated at 26.3. Urine culture revealed mixed gram-positive organism s. Blood culture was negative after 5 days x2. Extremity venous study showed low sonographic evidence for venous thrombosis. Left lower extremity MRI revealed no evidence of bone lesion to suggest multiple myeloma. MRI of the left ankle reveals a small osteochondral defect in the talar bone, no evidence of lytic lesions to suggest multiple mye zeke. Metastatic series revealed irregular lucency within the left distal tibial shaft medullary space. T here could be focal osteoporosis, but myeloma could not be excluded. Consider MRI if clinically ind icated for further evaluation. Probable left knee loose body, spinal spondylosis. Chest x-ray revealed chronic mild interstitial prominence in both lungs with no evidence of pneumoni a. CT angiogram of the chest, no evidence of pulmonary embolism, subsegmental atelectasis most pron ounced in the left lower lobe with elevation of the left hemidiaphragm and diffuse basilar dominant bronchitis pattern with mild bronchiectasis and prominence of the hilar lymphatics as well as a top normal size precarinal lymph node, findings that were not appreciated on an earlier x-ray. Aortic a therosclerosis was also present. Chest x-ray revealed atherosclerosis, otherwise normal chest radio graph. Dictated By: AGUSTINA PALMA/ROWDY Conf#: [id number] DID#: [id number]
[2016-08-24] MEDS: PANTOPRAZOLE (EC) 40 MG TAB PO SCH ×2 (06:13→18:00)
[2016-08-24] MEDS: LEVOFLOXACIN 250 MG TAB PO SCH (06:13)
[2016-08-24 07:35] VITALS: BP 150/65; RESP 20
[2016-08-24] MEDS: CHLORDIAZEPOXIDE/CLIDINIUM CAP PO SCH ×2 (08:00→12:00)
[2016-08-24 08:12] LABS: ADD SCAN DIFF NO
[2016-08-24 08:19] LABS: BASOPHILS % 0.7 % (0.0-2.0); EOSINOPHILS # 0.2 10^3/ul (0.0-0.5); EOSINOPHILS % 3.1 % (0.0-7.0); HEMATOCRIT 30.6 % (37.0-47.0); HEMOGLOBIN 9.9 g/dl (12.0-16.0); LYMPHOCYTES % 32.3 % (15.0-51.0); MEAN CORPUSCULAR HEMOGLOBIN 28.9 pg (29.0-33.0); MEAN CORPUSCULAR HGB CONC 32.4 g/dl (32.0-37.0); MEAN CORPUSCULAR VOLUME 89.5 fl (82.0-101.0); MEAN PLATELET VOLUME 10.5 fl (7.4-10.4); MONOCYTE # 0.8 10^3/ul (0.3-0.9); MONOCYTES % 12.4 % (0.0-11.0); NEUTROPHIL # 2.8 10^3/ul (1.6-7.5); NEUTROPHILS % 46.5 % (39.0-77.0); PLATELET COUNT 372 10^3/UL (140-415); RED BLOOD COUNT 3.42 10^6/ul (4.20-5.40); RED CELL DISTRIBUTION WIDTH 12.9 % (11.5-14.5)
[2016-08-24 08:29] LABS: CALCIUM 8.5 mg/dl (8.4-10.2); CREATININE 0.52 mg/dl (0.44-1.00); POTASSIUM 3.6 mmol/L (3.5-5.1)
[2016-08-24] MEDS: ZYVOX 600 MG TAB PO SCH ×2 (09:54→21:21)
--- NOTE | 2016-08-24 11:15 | RADRPT ---
PROCEDURE: CT Chest with contrast. CLINICAL INDICATION: Follow-up of bronchiectasis and lymphadenopathy. TECHNIQUE: CT scan of the chest and abdomen with contrast was performed on a multidetector high-re solution CT scanner following administration of 80 cc of Omnipaque-300. Coronal and sagittal reform atted images were obtained from the axial source images. Images were reviewed on a high-resolution [employer] workstation. The total exam CTDI equals 6.26 mGy and the total exam DLP equals 212 mGy-cm. One or more of the following dose reduction techniques were used: - Automated exposure control. - Adjustment of the mA and/or kV according to patient size. Use of iterative reconstruction technique. COMPARISON: CT angio chest 08/16/2016. FINDINGS: CT Chest: No enlarged supraclavicular or axillary lymph nodes are identified. The thyroid gland is normal. There are vascular calcifications in the aortic arch. The great vessels of the superior m ediastinum are patent and unremarkable. A 1 cm lymph node is noted ventral to the bridget. There is a 5 mm by 6 mm pulmonary nodule to the pleural surface in the ventral aspect of the right m iddle lobe. This is unchanged. There is persistent atelectasis in the medial aspect of the right middle lobe and in the right and l eft lower lobes. There is an air bronchograms in the consolidated lung in the medial aspect of the left lower lobe. There is persistent peribronchial thickening predominating the perihilar areas and bronchioles the m edial aspects of the right left lower lobes. Peribronchial thickening is noted in the medial aspect of the right middle lobe. The heart is normal in size. No pericardial effusion is identified. The main pulmonary artery and pulmonary artery outflow tracts are normal with no central or segmental pulmonary emboli identified. There are degenerative osteophytes in the thoracic spine with a mild dextroscoliosis in the mid thor acic spine. CT Abdomen and pelvis : The diaphragms are mildly elevated greater on the right side than left. The liver measures 13.4 cm AP. No hepatic mass is identified. The spleen is normal. There is a benign subcapsular cyst measuring 3.8 cm arising off the superior lateral upper third of the left kidney. The adrenal glands are unremarkable where visualized. There is fecal material in the colon. The stomach is unremarkable as visualized with no evidence of a hiatal hernia. IMPRESSION: 1. New rounded ground-glass infiltrates in the anterior segment of the right upper lobe developing since 08/16/2016. Findings are suspicious for a pneumonitis. 2. Stable 5 x 6 mm pulmonary nodule at the pleural surface in the ventral aspect of the right middl e lobe. This is likely a granuloma. 3. Mild dextroscoliosis of the mid thoracic spine with osteoarthritic degenerative change. 4. Atherosclerosis involving the aortic arch. No central or segmental pulmonary emboli identified. 5. Stable 1 cm minimal transverse diameter lymph node ventral to the bridget. 6. Worsening consolidative infiltrate and atelectasis involving the medial aspects of the right and left lower lobes with subsegmental atelectasis involving the lingula. 7. Extensive peribronchial thickening suspicious for small airways disease/bronchitis. RPTAT:AAJJ Physician Iris Date Time Electronically viewed and signed by Douglas Newell Physician on 08/24/2016 11:15 OTILIO/
--- NOTE | 2016-08-24 17:04 | RADRPT ---
PROCEDURE: Ventilation-perfusion lung scan CLINICAL INDICATION: 81 -year-old patient with shortness of breath. TECHNIQUE: Following the inhalation of approximately 1.0 mCi of Tc-99m stannous DTPA aerosol, vent ilation images were obtained. The patient was then given an intravenous injection of 4 point mCi of Tc-99m MAA, in perfusion images were obtained. COMPARISON: No prior VQ scans. Correlation was made with CT scan of the chest dated August 23 7 FINDINGS: Ventilation images demonstrate moderately nonhomogeneous distribution of activity in the lungs bilat erally. Perfusion images reveal matched nonhomogeneous distribution of activity in both lungs. The findings represent low probability for pulmonary embolus. IMPRESSION: Low probability for pulmonary embolus. RPTAT: HH .Allyson Grant MD, MD Date Time Electronically viewed and signed by .Allyson Grant MD, on 08/24/2016 17:04 .L/
--- NOTE | 2016-08-24 17:31 | CONS ---
Date/Time of Note Date/Time of Note DATE: 08/24/16 TIME: 17:29 Assessment/Plan Assessment/Plan Chief Complaint/Hosp Course SUBJECTIVE: Alert, still with significant B hands pain and swelling . nad. no fevers ANTIMICROBIALS: Levaquin #9 Zyvox PHYSICAL EXAMINATION: GENERAL: This is a fragile, elderly woman who is awake, in no distress. HEENT: Head atraumatic, normocephalic. Sclerae anicteric. Buccal mucosa pink. NECK: Supple. CHEST: Rise symmetrical. Breath sounds diminished at the bases. HEART: S1, S2. ABDOMEN: Soft. Bowel tones present. EXTREMITIES: Without cyanosis. Left hand with some erythema and swelling. ASSESSMENT: 1. Pneumonia, resolving. 2. B hand cellulitis secondary to IV infiltration. 3. Anemia. 4. History of mitral valve prolapse. 5. ALLERGY TO MULTIPLE ANTIBIOTICS. PLAN: Stable, continue abx,warm moist compresses to B hands. DW staff Problems: Consultation Date/Type/Reason Admit Date/Time Aug 16, 2016 at 15:52 Type of Consultation: ID Exam/Review of Systems Vital Signs Vitals Vital Signs Date Time Temp Pulse Resp B/P Pulse Ox O2 Delivery O2 Flow Rate FiO2 08/24/16 08:40 Nasal Cannula 2.0 08/24/16 07:35 97.4 67 20 150/65 94 Intake and Output 08/23/16 08/23/16 08/24/16 15:00 23:00 07:00 Intake Total 2190 ml 350 ml Output Total 1700 ml Balance 490 ml 350 ml Results Result Diagram: 08/24/16 0735 08/24/16 0735 Results 24 hrs Laboratory Tests Test 08/24/16 07:35 White Blood Count 6.0 # Red Blood Count 3.42 L Hemoglobin 9.9 L Hematocrit 30.6 L Mean Corpuscular Volume 89.5 Mean Corpuscular Hemoglobin 28.9 L Mean Corpuscular Hemoglobin Concent 32.4 Red Cell Distribution Width 12.9 Platelet Count 372 # Mean Platelet Volume 10.5 H Neutrophils % 46.5 Lymphocytes % 32.3 Monocytes % 12.4 H Eosinophils % 3.1 Basophils % 0.7 Nucleated Red Blood Cells % 0.0 Neutrophils # 2.8 Lymphocytes # 2.0 Monocytes # 0.8 Eosinophils # 0.2 Basophils # 0.0 Nucleated Red Blood Cells # 0.0 Sodium Level 135 Potassium Level 3.6 Chloride Level 104 Carbon Dioxide Level 25 Anion Gap 10 Blood Urea Nitrogen 6 L Creatinine 0.52 Glucose Level 90 Calcium Level 8.5 Medications Medications Current Medications Tamsulosin HCl (Flomax) 0.4 mg HS PO Last administered on 08/23/16 22:11; Admin Dose 0.4 MG; Start 08/16/16 at 21:00 Trazodone HCl (Desyrel) 100 mg QHS PO Last administered on 08/17/16 20:28; Admin Dose 100 MG; Start 08/16/16 at 21:00 Atorvastatin Calcium (Lipitor) 10 mg DAILY@21 PO Last administered on 22:11; Admin Dose 10 MG; Start 08/16/16 at 21:00 Clonidine 0.1 mg 0.1 mg Q4 PRN PO sbp >160; Start 08/16/16 at 18:30 Potassium Chloride/Dextrose/ Sod Cl (D5-NS + KCl 20 Meq) 1,000 ml @ 50 mls/hr Q20H IV Last administered on 08/23/16 22:14; Admin Dose 50 MLS/HR; Start 08/16 at 18:30 Guaifenesin/ Codeine Phosphate (Robitussin Ac Liquid Cup) 5 ml Q6H PRN PO COUGH Last administered on 08/20/16 12:45; Admin Dose 5 ML; Start 08/17/16 at 08:30 Guaifenesin/ Codeine Phosphate (Robitussin Ac Liquid Cup) 10 ml Q6H PRN PO COUGH Last administered on 08/23/16 22:20; Admin Dose 10 ML; Start 08/17/16 at 08:30 Levofloxacin (Levaquin) 250 mg DAILY@06 PO Last administered on 08/24/16 06:13 ; Admin Dose 250 MG; Start 08/22/16 at 06:00 Acetaminophen (Tylenol Tab) 650 mg Q6H PRN PO PAIN AND OR ELEVATED TEMP Last administered on 08/23/16 22:20; Admin Dose 650 MG; Start 08/23/16 at 12:30 Pantoprazole (Protonix Tab) 40 mg BID@06,18 PO Last administered on 08/24/16 06:13; Admin Dose 40 MG; Start 08/23/16 at 18:00 Linezolid (Zyvox) 600 mg BID PO Last administered on 08/24/16t 09:54; Admin Dose 600 MG; Start 08/23/16 at 14:30 Dicyclomine HCl (Bentyl) 20 mg QID PO ; Start 08/24/16 at 18:00 Chlordiazepoxide (Librium) 10 mg QID PO ; Start 08/24/16 at 18:00 BOWEN SALEH NP Aug 24, 2016 17:31
[2016-08-24] MEDS: DICYCLOMINE 10 MG CAP PO SCH ×2 (18:58→21:22)
[2016-08-24] MEDS: CHLORDIAZEPOXIDE 5 MG CAP PO SCH ×2 (18:58→21:22)
[2016-08-24] MEDS: D5-NS + KCL 20 MEQ 1,000 ML IV SCH (19:30)
[2016-08-24 20:31] VITALS: BP 168/72; RESP 20
[2016-08-24] MEDS: traZODone 100 MG TAB PO SCH (21:00)
[2016-08-24] MEDS: ATORVASTATIN 10 MG TAB PO SCH (21:21)
[2016-08-24] MEDS: TAMSULOSIN (SR) 0.4 MG CAP PO SCH (21:21)
[2016-08-24] MEDS: GUAIFENESIN/CODEINE 5ML CUP PO PRN (23:04)
[2016-08-25] MEDS: ACETAMINOPHEN 325 MG TAB PO PRN (03:40)
--- NOTE | 2016-08-25 04:36 | PN ---
DATE: 08/24/2016 SUBJECTIVE: The patient is awake and alert, comfortable. No nausea has recurred. OBJECTIVE: HEART: Normal sinus rhythm. LUNGS: Clear to A and P. ABDOMEN: Liver, kidneys, and spleen are not palpable. Bowel sounds are normal. The patient wants to start ambulating. I will call physiotherapy tomorrow to start the patient ambu lating out of bed. No more nausea. VITAL SIGNS: The patient is afebrile. Blood pressure is 158/72, pulse is 74 per minute. LABORATORY DATA: Hemoglobin 9.9, hematocrit 30.6%, platelet count is normal, white blood cell count 6000. INR 1.10, PTT 39.7. D-dimer 2496.41. Electrolytes: Sodium 135, potassium 3.6, chloride 10 4, carbon dioxide 25, BUN 6, creatinine 0.52, glucose 90, calcium 8.5. Stool for occult blood was n egative. Immunoglobulin C is low at 488. Immunoglobulin A is low at 51. Immunoglobulin M is cordelia l at 57. ____ 0. SHELBIE screen is negative. [place] light chain elevated at 28.3. [place] lambda light chain ratio 1.79. Urine culture shows mixed gram-positive organisms. Blood culture was negative x2 after 5 days. IMAGING: Ventilation perfusion lung scan shows low probability for pulmonary embolus. CAT scan of the chest shows new rounded ground glass infiltrates in the anterior segment of the right upper lobe developing since 08/16/2016, findings are suspicious for pneumonitis, stable 5 x 6 mm pulmonary nod ule at the pleural surface of the right middle lobe, likely a granuloma, mild dextroscoliosis, ather osclerosis involving the aortic arch, stable 1 cm minimal transverse diameter lymph node in the tunde na, worsening consolidative infiltrate and atelectasis involving the medial aspect of the right and left lower lobes with subsegmental atelectasis involving the lingual, extensive peribronchial thicke andreea suspicious for small airway disease or bronchitis. Dictated By: AGUSTINA PALMA/ROWDY Conf#: [id number] DID#: [id number]
[2016-08-25] MEDS: PANTOPRAZOLE (EC) 40 MG TAB PO SCH ×3 (06:00→17:23)
[2016-08-25 06:32] LABS: ADD SCAN DIFF NO
[2016-08-25] MEDS: LEVOFLOXACIN 250 MG TAB PO SCH (06:42)
[2016-08-25 06:44] LABS: BASOPHIL # 0.1 10^3/ul (0.0-0.1); BASOPHILS % 0.9 % (0.0-2.0); EOSINOPHILS # 0.2 10^3/ul (0.0-0.5); EOSINOPHILS % 3.3 % (0.0-7.0); HEMATOCRIT 29.2 % (37.0-47.0); HEMOGLOBIN 9.4 g/dl (12.0-16.0); LYMPHOCYTES % 28.9 % (15.0-51.0); MEAN CORPUSCULAR HEMOGLOBIN 28.8 pg (29.0-33.0); MEAN CORPUSCULAR HGB CONC 32.2 g/dl (32.0-37.0); MEAN CORPUSCULAR VOLUME 89.6 fl (82.0-101.0); MEAN PLATELET VOLUME 10.6 fl (7.4-10.4); MONOCYTE # 0.7 10^3/ul (0.3-0.9); MONOCYTES % 10.5 % (0.0-11.0); NEUTROPHIL # 3.6 10^3/ul (1.6-7.5); NEUTROPHILS % 52.1 % (39.0-77.0); PLATELET COUNT 365 10^3/UL (140-415); RED BLOOD COUNT 3.26 10^6/ul (4.20-5.40); WHITE BLOOD COUNT 6.9 10^3/ul (4.8-10.8)
[2016-08-25 06:52] LABS: CALCIUM 8.5 mg/dl (8.4-10.2); CREATININE 0.55 mg/dl (0.44-1.00); POTASSIUM 3.7 mmol/L (3.5-5.1)
[2016-08-25 08:13] VITALS: BP 160/72; RESP 16
[2016-08-25] MEDS: CHLORDIAZEPOXIDE 5 MG CAP PO SCH ×4 (08:19→20:41)
[2016-08-25] MEDS: ZYVOX 600 MG TAB PO SCH ×2 (08:20→20:41)
[2016-08-25] MEDS: DICYCLOMINE 10 MG CAP PO SCH ×4 (08:20→20:41)
--- NOTE | 2016-08-25 08:26 | PN ---
DATE: 08/25/2016 SUBJECTIVE: The patient states that she is feeling better. Less shortness of breath or cough. Rebekah hurley concern now is her generalized weakness and lack of ambulation. The patient has no abdominal pain, no complaints of nausea or vomiting. No melena or hematochezia. OBJECTIVE: VITAL SIGNS: Temperature 98.2, pulse 74, respirations 18, blood pressure 167/72, pulse oximetry 96% on 2 liters of oxygen. SKIN: Pale. No ecchymosis, no petechiae or rashes. HEENT: No mucosal lesions. No scleral icterus. NECK: Supple, no jugular venous distention or thyroid enlargement. CHEST: Now clear without wheezes, rhonchi, rales or rubs. HEART: Regular sinus rhythm, no S3, S4 or murmurs. ABDOMEN: Soft, no masses, no ascites. EXTREMITIES: No clubbing, no edema or cyanosis. NEUROLOGIC: Normal. LABORATORIES: White count 6900 with 52% neutrophils and an absolute neutrophil count of 3600, hemog lobin 9.4, hematocrit 29.2, MCV 89.6, and platelet count 365,000. Creatinine is 0.55. BUN is 7, so dium 135, potassium 3.7. ASSESSMENT: 1. Anemia, possibly due to gastrointestinal bleed, rule out immunoproliferative disorder. 2. Shortness of breath with cough, resolving. PLAN: Still awaiting urine for immunofixation. Unfortunately, although this was ordered 08/20/2016 , there was never specimen collected. Will notify the staff about need to collect the urine for imm unofixation. Dictated By: SHERWIN HAGEN MD, SR/ROWDY Conf#: [id number] DID#: [id number]
--- NOTE | 2016-08-25 15:27 | CONS ---
Date/Time of Note Date/Time of Note DATE: 08/25/16 TIME: 15:26 Assessment/Plan Assessment/Plan Chief Complaint/Hosp Course SUBJECTIVE: Alert, still with significant B hands pain, cough is better ANTIMICROBIALS: Levaquin #10 Zyvox #3 PHYSICAL EXAMINATION: GENERAL: This is a fragile, elderly woman who is awake, in no distress. HEENT: Head atraumatic, normocephalic. Sclerae anicteric. Buccal mucosa pink. NECK: Supple. CHEST: Rise symmetrical. Breath sounds diminished at the bases. HEART: S1, S2. ABDOMEN: Soft. Bowel tones present. EXTREMITIES: Without cyanosis. Left hand with some erythema and swelling. ASSESSMENT: 1. Pneumonia, resolving. 2. B hand cellulitis secondary to IV infiltration. 3. Anemia. 4. History of mitral valve prolapse. 5. ALLERGY TO MULTIPLE ANTIBIOTICS. PLAN: Stable, continue warm moist compresses to B hands, complete abx. DW staff Problems: Consultation Date/Type/Reason Admit Date/Time Aug 16, 2016 at 15:52 Type of Consultation: ID Exam/Review of Systems Vital Signs Vitals Vital Signs Date Time Temp Pulse Resp B/P Pulse Ox O2 Delivery O2 Flow Rate FiO2 08/25/16 14:16 3.0 08/25/16 08:13 98.0 68 16 160/72 97 08/25/16 08:00 Nasal Cannula Intake and Output 08/24/16 08/24/16 08/25/16 15:00 23:00 07:00 Intake Total 1850 ml 800 ml Output Total 1350 ml 1000 ml Balance 500 ml -200 ml Results Result Diagram: 08/25/16 0548 08/25/16 0548 Results 24 hrs Laboratory Tests Test 08/25/16 05:48 White Blood Count 6.9 Red Blood Count 3.26 L Hemoglobin 9.4 L Hematocrit 29.2 L Mean Corpuscular Volume 89.6 Mean Corpuscular Hemoglobin 28.8 L Mean Corpuscular Hemoglobin Concent 32.2 Red Cell Distribution Width 13.0 Platelet Count 365 Mean Platelet Volume 10.6 H Neutrophils % 52.1 Lymphocytes % 28.9 Monocytes % 10.5 Eosinophils % 3.3 Basophils % 0.9 Nucleated Red Blood Cells % 0.0 Neutrophils # 3.6 Lymphocytes # 2.0 Monocytes # 0.7 Eosinophils # 0.2 Basophils # 0.1 Nucleated Red Blood Cells # 0.0 Sodium Level 135 Potassium Level 3.7 Chloride Level 104 Carbon Dioxide Level 27 Anion Gap 8 Blood Urea Nitrogen 7 Creatinine 0.55 Glucose Level 88 Calcium Level 8.5 Medications Medications Current Medications Tamsulosin HCl (Flomax) 0.4 mg HS PO Last administered on 08/24/16 21:21; Admin Dose 0.4 MG; Start 08/16/16 at 21:00 Trazodone HCl (Desyrel) 100 mg QHS PO Last administered on 08/17/16 20:28; Admin Dose 100 MG; Start 08/16/16 at 21:00 Atorvastatin Calcium (Lipitor) 10 mg DAILY@21 PO Last administered on 21:21; Admin Dose 10 MG; Start 08/16/16 at 21:00 Clonidine 0.1 mg 0.1 mg Q4 PRN PO sbp >160; Start 08/16/16 at 18:30 Potassium Chloride/Dextrose/ Sod Cl (D5-NS + KCl 20 Meq) 1,000 ml @ 50 mls/hr Q20H IV Last administered on 08/24/16 19:30; Admin Dose 50 MLS/HR; Start 08/16 at 18:30 Guaifenesin/ Codeine Phosphate (Robitussin Ac Liquid Cup) 5 ml Q6H PRN PO COUGH Last administered on 08/24/16 23:04; Admin Dose 5 ML; Start 08/17/16 at 08:30 Guaifenesin/ Codeine Phosphate (Robitussin Ac Liquid Cup) 10 ml Q6H PRN PO COUGH Last administered on 08/23/16 22:20; Admin Dose 10 ML; Start 08/17/16 at 08:30 Levofloxacin (Levaquin) 250 mg DAILY@06 PO Last administered on 08/25/16 06:42 ; Admin Dose 250 MG; Start 08/22/16 at 06:00 Acetaminophen (Tylenol Tab) 650 mg Q6H PRN PO PAIN AND OR ELEVATED TEMP Last administered on 08/25/16 03:40; Admin Dose 650 MG; Start 08/23/16 at 12:30 Pantoprazole (Protonix Tab) 40 mg BID@,18 PO Last administered on 08/24/16 06:13; Admin Dose 40 MG; Start 08/23/16 at 18:00 Linezolid (Zyvox) 600 mg BID PO Last administered on 08/25/16 08:20; Admin Dose 600 MG; Start 08/23/16 at 14:30 Dicyclomine HCl (Bentyl) 20 mg QID PO Last administered on 08/25/16 12:07; Admin Dose 20 MG; Start 08/24/16 at 18:00 Chlordiazepoxide (Librium) 10 mg QID PO Last administered on 08/25/16 12:07; Admin Dose 10 MG; Start 08/24/16 at 18:00 BOWEN SALEH NP Aug 25, 2016 15:27
[2016-08-25 20:14] VITALS: BP 145/69; RESP 16
[2016-08-25] MEDS: D5-NS + KCL 20 MEQ 1,000 ML IV SCH ×2 (20:35→22:30)
[2016-08-25] MEDS: TAMSULOSIN (SR) 0.4 MG CAP PO SCH (20:41)
[2016-08-25] MEDS: ATORVASTATIN 10 MG TAB PO SCH (20:41)
[2016-08-25] MEDS: traZODone 100 MG TAB PO SCH (20:43)
[2016-08-25] MEDS: GUAIFENESIN/CODEINE 5ML CUP PO PRN (22:37)
[2016-08-26] MEDS: ACETAMINOPHEN 325 MG TAB PO PRN (01:50)
--- NOTE | 2016-08-26 03:19 | PN ---
DATE: 08/25/2016 SUBJECTIVE: The patient is awake and alert, feels better, still coughing. Chest x-ray is actually worse. No more nausea. Patient is eating, taking nursery by mouth. Discontinue IV. OBJECTIVE: HEART: Normal sinus rhythm. CHEST: Clear to A and P. ABDOMEN: Liver, kidneys, spleen are not palpable. Bowel sounds are normal. There are no intraabdo olinda masses or bruits. EXTREMITIES: No ankle edema. The patient is beginning to ambulate in the [place] with help. We will probably see if we can get the patient admitted to the fourth floor rehabilitation unit in a few more days. Still waiting for urinary immunofixation. Apparently the specimen was never collected, although the test was ordered on 08/20/2016. We are still examining this patient, investigating for possible mu ltiple myeloma as the cause of her anemia. The patient's was also in the hospital in the IC U pared[facility]. The patient is concerned about her . VITAL SIGNS: The patient is afebrile, pulse is 69 per minute, respiratory rate is 16 per minute, bl ood pressure is 160/72, pulse oximetry is 97%. LABORATORY DATA: White blood cells 6900, hemoglobin 9.4, hematocrit 29.2%, platelets are normal. S ed rate is 16. Electrolytes: Sodium 135, potassium 3.7, chloride 104, carbon dioxide 27, BUN is 7, creatinine 0.55, glucose 88, calcium 8.5. Stool for occult blood was negative. Urine culture show s mixed gram-positive organisms, ranging between 30,000 and 40,000 colonies. This is felt to probab ly be a contaminant. Get repeat chest x-ray in the morning. Dictated By: AGUSTINA PALMA/NTS Conf#: [id number] DID#: [id number]
[2016-08-26] MEDS: LEVOFLOXACIN 250 MG TAB PO SCH (05:34)
[2016-08-26] MEDS: PANTOPRAZOLE (EC) 40 MG TAB PO SCH ×2 (05:36→17:45)
[2016-08-26 06:25] LABS: ADD SCAN DIFF NO
[2016-08-26 06:41] LABS: BASOPHIL # 0.1 10^3/ul (0.0-0.1); BASOPHILS % 0.9 % (0.0-2.0); EOSINOPHILS # 0.3 10^3/ul (0.0-0.5); LYMPHOCYTES # 2.6 10^3/ul (0.8-2.9); LYMPHOCYTES % 28.6 % (15.0-51.0); MEAN CORPUSCULAR HEMOGLOBIN 29.9 pg (29.0-33.0); MEAN CORPUSCULAR HGB CONC 33.3 g/dl (32.0-37.0); MEAN CORPUSCULAR VOLUME 89.8 fl (82.0-101.0); MEAN PLATELET VOLUME 10.6 fl (7.4-10.4); MONOCYTE # 0.7 10^3/ul (0.3-0.9); MONOCYTES % 8.3 % (0.0-11.0); NEUTROPHIL # 5.1 10^3/ul (1.6-7.5); NEUTROPHILS % 56.6 % (39.0-77.0); PLATELET COUNT 427 10^3/UL (140-415); RED BLOOD COUNT 3.34 10^6/ul (4.20-5.40); RED CELL DISTRIBUTION WIDTH 13.1 % (11.5-14.5)
[2016-08-26 06:44] LABS: POTASSIUM 3.5 mmol/L (3.5-5.1)
[2016-08-26 06:47] LABS: CREATININE 0.61 mg/dl (0.44-1.00)
[2016-08-26 07:36] VITALS: BP 169/72; RESP 16
[2016-08-26] MEDS: DICYCLOMINE 10 MG CAP PO SCH ×4 (07:48→21:06)
[2016-08-26] MEDS: ZYVOX 600 MG TAB PO SCH (07:48)
[2016-08-26] MEDS: CHLORDIAZEPOXIDE 5 MG CAP PO SCH ×4 (07:48→21:06)
--- NOTE | 2016-08-26 12:21 | PN ---
Date/Time of Note Date/Time of Note DATE: 08/26/16 TIME: 12:19 Assessment/Plan VTE Prophylaxis VTE Prophylaxis Intervention: other (per primary MD) Lines/Catheters IV Catheter Type (from Nrs): Peripheral IV Urinary Cath still in place: No Assessment/Plan Assessment/Plan Pt is recovering from pneumonia. Hgb stable ~10. Urine specimen sent to lab but the IEP is pending presently. Continue current plans. Subjective 24 Hr Interval Summary Free Text/Dictation Pt is coughing less and feels better. She is concerned about her , who is in the ICU. Exam/Review of Systems Vital Signs Vitals Vital Signs Date Time Temp Pulse Resp B/P Pulse Ox O2 Delivery O2 Flow Rate FiO2 08/26/16 08:05 Nasal Cannula 2.0 08/26/16 07:36 97.5 68 16 169/72 98 Intake and Output 08/25/16 08/25/16 08/26/16 15:00 23:00 07:00 Intake Total 1720 ml 1500 ml Output Total 800 ml 1150 ml Balance 920 ml 350 ml Exam Constitutional: alert, oriented, well developed Head: normocephalic Eyes: nl conjunctiva Neck: supple Respiratory: clear to auscultation Cardiovascular: regular rate and rhythm Gastrointestinal: non-tender, soft Results Result Diagram: 08/26/16 0545 08/26/16 0545 Results 24 hrs Laboratory Tests Test 08/26/16 05:45 White Blood Count 9.0 # Red Blood Count 3.34 L Hemoglobin 10.0 L Hematocrit 30.0 L Mean Corpuscular Volume 89.8 Mean Corpuscular Hemoglobin 29.9 Mean Corpuscular Hemoglobin Concent 33.3 Red Cell Distribution Width 13.1 Platelet Count 427 H Mean Platelet Volume 10.6 H Neutrophils % 56.6 Lymphocytes % 28.6 Monocytes % 8.3 Eosinophils % 3.0 Basophils % 0.9 Nucleated Red Blood Cells % 0.0 Neutrophils # 5.1 Lymphocytes # 2.6 Monocytes # 0.7 Eosinophils # 0.3 Basophils # 0.1 Nucleated Red Blood Cells # 0.0 Sodium Level 139 Potassium Level 3.5 Chloride Level 103 Carbon Dioxide Level 26 Anion Gap 14 Blood Urea Nitrogen 7 Creatinine 0.61 Glucose Level 85 Calcium Level 9.0 Medications Medications Current Medications Tamsulosin HCl (Flomax) 0.4 mg HS PO Last administered on 08/25/16 20:41; Admin Dose 0.4 MG; Start 08/16/16 at 21:00 Trazodone HCl (Desyrel) 100 mg QHS PO Last administered on 08/17/16 20:28; Admin Dose 100 MG; Start 08/16/16 at 21:00 Atorvastatin Calcium (Lipitor) 10 mg DAILY@21 PO Last administered on 20:41; Admin Dose 10 MG; Start 08/16/16 at 21:00 Clonidine (Catapres) 0.1 mg Q4 PRN PO sbp >160; Start 08/16/16 at 18:30 Guaifenesin/ Codeine Phosphate (Robitussin Ac Liquid Cup) 5 ml Q6H PRN PO COUGH Last administered on 08/25/16 22:37; Admin Dose 5 ML; Start 08/17/16 at 08:30 Guaifenesin/ Codeine Phosphate (Robitussin Ac Liquid Cup) 10 ml Q6H PRN PO COUGH Last administered on 08/23/16 22:20; Admin Dose 10 ML; Start 08/17/16 at 08:30 Levofloxacin (Levaquin) 250 mg DAILY@06 PO Last administered on 08/26/16 05:34 ; Admin Dose 250 MG; Start 08/22/16 at 06:00 Acetaminophen (Tylenol Tab) 650 mg Q6H PRN PO PAIN AND OR ELEVATED TEMP Last administered on 08/26/16 01:50; Admin Dose 650 MG; Start 08/23/16 at 12:30 Pantoprazole (Protonix Tab) 40 mg BID@06,18 PO Last administered on 08/24/16 06:13; Admin Dose 40 MG; Start 08/23/16 at 18:00 Linezolid (Zyvox) 600 mg BID PO Last administered on 08/26/16 07:48; Admin Dose 600 MG; Start 08/23/16 at 14:30 Dicyclomine HCl (Bentyl) 20 mg QID PO Last administered on 08/26/16 11:50; Admin Dose 20 MG; Start 08/24/16 at 18:00 Chlordiazepoxide (Librium) 10 mg QID PO Last administered on 08/26/16 11:50; Admin Dose 10 MG; Start 08/24/16 at 18:00 VANITA SUN MD Aug 26, 2016 12:21
--- NOTE | 2016-08-26 14:55 | CONS ---
Date/Time of Note Date/Time of Note DATE: 08/26/16 TIME: 14:53 Assessment/Plan Assessment/Plan Chief Complaint/Hosp Course SUBJECTIVE: Alert, feels better, nad ANTIMICROBIALS: Levaquin #12 Zyvox #4 PHYSICAL EXAMINATION: GENERAL: This is a fragile, elderly woman who is awake, in no distress. HEENT: Head atraumatic, normocephalic. Sclerae anicteric. Buccal mucosa pink. NECK: Supple. CHEST: Rise symmetrical. Breath sounds diminished at the bases. HEART: S1, S2. ABDOMEN: Soft. Bowel tones present. EXTREMITIES: Without cyanosis. B hands swelling improved. ASSESSMENT: 1. S/p pneumonia 2. B hand cellulitis secondary to IV infiltration==> resolivng. 3. Anemia. 4. History of mitral valve prolapse. 5. ALLERGY TO MULTIPLE ANTIBIOTICS. PLAN: Improving, dc abx, observe DW staff/pt Problems: Consultation Date/Type/Reason Admit Date/Time Aug 16, 2016 at 15:52 Type of Consultation: ID Exam/Review of Systems Vital Signs Vitals Vital Signs Date Time Temp Pulse Resp B/P Pulse Ox O2 Delivery O2 Flow Rate FiO2 08/26/16 08:05 Nasal Cannula 2.0 08/26/16 07:36 97.5 68 16 169/72 98 Intake and Output 08/25/16 08/25/16 08/26/16 15:00 23:00 07:00 Intake Total 1720 ml 1500 ml Output Total 800 ml 1150 ml Balance 920 ml 350 ml Results Result Diagram: 08/26/16 0545 08/26/16 0545 Results 24 hrs Laboratory Tests Test 08/26/16 05:45 White Blood Count 9.0 # Red Blood Count 3.34 L Hemoglobin 10.0 L Hematocrit 30.0 L Mean Corpuscular Volume 89.8 Mean Corpuscular Hemoglobin 29.9 Mean Corpuscular Hemoglobin Concent 33.3 Red Cell Distribution Width 13.1 Platelet Count 427 H Mean Platelet Volume 10.6 H Neutrophils % 56.6 Lymphocytes % 28.6 Monocytes % 8.3 Eosinophils % 3.0 Basophils % 0.9 Nucleated Red Blood Cells % 0.0 Neutrophils # 5.1 Lymphocytes # 2.6 Monocytes # 0.7 Eosinophils # 0.3 Basophils # 0.1 Nucleated Red Blood Cells # 0.0 Sodium Level 139 Potassium Level 3.5 Chloride Level 103 Carbon Dioxide Level 26 Anion Gap 14 Blood Urea Nitrogen 7 Creatinine 0.61 Glucose Level 85 Calcium Level 9.0 Medications Medications Current Medications Tamsulosin HCl (Flomax) 0.4 mg HS PO Last administered on 08/25/16 20:41; Admin Dose 0.4 MG; Start 08/16/16 at 21:00 Trazodone HCl (Desyrel) 100 mg QHS PO Last administered on 08/17/16 20:28; Admin Dose 100 MG; Start 08/16/16 at 21:00 Atorvastatin Calcium (Lipitor) 10 mg DAILY@21 PO Last administered on 20:41; Admin Dose 10 MG; Start 08/16/16 at 21:00 Clonidine (Catapres) 0.1 mg Q4 PRN PO sbp >160; Start 08/16/16 at 18:30 Guaifenesin/ Codeine Phosphate (Robitussin Ac Liquid Cup) 5 ml Q6H PRN PO COUGH Last administered on 08/25/16 22:37; Admin Dose 5 ML; Start 08/17/16 at 08:30 Guaifenesin/ Codeine Phosphate (Robitussin Ac Liquid Cup) 10 ml Q6H PRN PO COUGH Last administered on 08/23/16 22:20; Admin Dose 10 ML; Start 08/17/16 at 08:30 Levofloxacin (Levaquin) 250 mg DAILY@06 PO Last administered on 08/26/16 05:34 ; Admin Dose 250 MG; Start 08/22/16 at 06:00 Acetaminophen (Tylenol Tab) 650 mg Q6H PRN PO PAIN AND OR ELEVATED TEMP Last administered on 08/26/16 01:50; Admin Dose 650 MG; Start 08/23/16 at 12:30 Pantoprazole (Protonix Tab) 40 mg BID@06,18 PO Last administered on 08/24/16 06:13; Admin Dose 40 MG; Start 08/23/16 at 18:00 Linezolid (Zyvox) 600 mg BID PO Last administered on 08/26/16 07:48; Admin Dose 600 MG; Start 08/23/16 at 14:30 Dicyclomine HCl (Bentyl) 20 mg QID PO Last administered on 08/26/16 11:50; Admin Dose 20 MG; Start 08/24/16 at 18:00 Chlordiazepoxide (Librium) 10 mg QID PO Last administered on 08/26/16t 11:50; Admin Dose 10 MG; Start 08/24/16 at 18:00 BOWEN SALEH NP Aug 26, 2016 14:55
[2016-08-26 15:47] VITALS: BP 139/64; PULSE 69; RESP 20
[2016-08-26] MEDS ORDERED: CEPASTAT LOZENGE MT PRN (16:30)
[2016-08-26] MEDS: CLOTRIMAZOLE 10 MG TROCHE MT SCH ×2 (17:44→23:43)
[2016-08-26] MEDS ORDERED: CLOTRIMAZOLE 10 MG TROCHE MT SCH (18:00)
[2016-08-26 20:21] VITALS: BP 149/69; RESP 17
[2016-08-26] MEDS: traZODone 100 MG TAB PO SCH (21:05)
[2016-08-26] MEDS: TAMSULOSIN (SR) 0.4 MG CAP PO SCH (21:06)
[2016-08-26] MEDS: ATORVASTATIN 10 MG TAB PO SCH (21:06)
[2016-08-26] MEDS: GUAIFENESIN/CODEINE 5ML CUP PO PRN (21:12)
--- NOTE | 2016-08-27 04:03 | PN ---
DATE: 08/26/2016 SUBJECTIVE: The patient is awake and alert. She feels better. No nausea. The patient is eating a nd drinking well. The patient was ambulated today to have physiotherapy in the hallway. She is reg aining some strength now. I am attempting to get her admitted to the [facility] to get her back to her previous state of ambulation. When she came to the hospital, she was fully ambulatory. OBJECTIVE: HEART: Normal sinus rhythm. CHEST: Clear to A and P. ABDOMEN: Liver, kidneys, and spleen are not palpable. Bowel sounds are normal. EXTREMITIES: No ankle edema. No pretibial edema. VITAL SIGNS: The patient is afebrile, blood pressure was 169/72, pulse is 69. LABORATORY DATA: White blood cell count 9000, hemoglobin 10, hematocrit 30%, platelet count is high at 427. Electrolytes: Sodium 139, potassium 3.5, chloride 103, carbon dioxide 26, BUN 7, creatini ne 0.61, glucose 85, calcium 9.0. Urine immunofixation, the specimen has been collected, and we are awaiting results. Urine culture showed mixed gram-positive organisms with 30,000 to 40,000 colonie s. CAT scan of the chest revealed new rounded ground glass infiltrates in the anterior segment of t he right upper lobe which have developed since 08/16/2016. Findings are suspicious for pneumonitis, stable, 5 x 6 mm pulmonary nodule at the pleural surface, ventral aspect of the right middle lobe, likely a granuloma, a stable 1 cm minimal transverse diameter lymph node in the bridget, worsening co nsolidation, infiltrate and atelectasis involving the medial aspect of the right and left lower lobe with subsegmental atelectasis involving the lingula, extensive peribronchial thickening suspicious for small airways disease or bronchitis. Dictated By: AGUSTINA PALMA/ROWDY Conf#: [id number] DID#: [id number]
[2016-08-27] MEDS: PANTOPRAZOLE (EC) 40 MG TAB PO SCH ×2 (06:00→17:37)
[2016-08-27 07:57] VITALS: BP 133/63; RESP 18
[2016-08-27] MEDS: DICYCLOMINE 10 MG CAP PO SCH ×4 (08:25→20:16)
[2016-08-27] MEDS: CHLORDIAZEPOXIDE 5 MG CAP PO SCH ×4 (08:25→20:17)
[2016-08-27] MEDS: CLOTRIMAZOLE 10 MG TROCHE MT SCH ×4 (08:26→20:16)
--- NOTE | 2016-08-27 08:58 | CONS ---
DATE OF ADMISSION: 08/16/2016 DATE OF CONSULTATION: 08/27/2016 HEMATOLOGY PROGRESS NOTE SUBJECTIVE: The patient states that her cough is better. She is now complaining of a "sore throat". No actual dysphagia. The patient does not have any substernal pain on swallowing. Also, she is complaining of some irritation of the right eye. OBJECTIVE: VITAL SIGNS: Temperature 98.6, pulse 77, respirations 18, blood pressure 133/66, pulse oximetry 95% on room air. SKIN: No ecchymosis, no petechiae or rashes. HEENT: No mucosal lesions. No scleral icterus. There is some watery discharge from the right eye a s compared to the left. There is no conjunctival injection seen. NECK: Supple. No jugular venous distention or thyroid enlargement. CHEST: Clear to auscultation and percussion. No rhonchi, wheezes, rales or rubs. NODES: No palpable lymphadenopathy in the lymph node bearing area. ABDOMEN: Soft. No masses, no ascites. EXTREMITIES: No clubbing, edema or cyanosis. No palpable cords or Homans sign. NEUROLOGIC: Normal. The immunofixation has been obtained and there is a normal pattern. There is no monoclonal protein seen. ASSESSMENT: 1. Shortness of breath. Rule out pneumonia. 2. Anemia. 3. 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 PLAN: The patient has been given lozenges for pain relief and also Mycelex troches. Will give the p atient Tobramycin and dexamethasone ophthalmic drops. Dictated By: SHERWIN HAGEN MD, SR/ROWDY Conf#: [id number] DID#: [id number]
[2016-08-27] MEDS: TOBRAMYCIN/DEXAMETH 2.5 ML OPH BOTH EYES SCH ×4 (09:00→20:17)
--- NOTE | 2016-08-27 15:39 | CONS ---
Date/Time of Note Date/Time of Note DATE: 08/27/16 TIME: 15:38 Assessment/Plan Assessment/Plan Chief Complaint/Hosp Course SUBJECTIVE: Alert, fels good, no fevers, nad PHYSICAL EXAMINATION: GENERAL: This is a fragile, elderly woman who is awake, in no distress. HEENT: Head atraumatic, normocephalic. Sclerae anicteric. Buccal mucosa pink. NECK: Supple. CHEST: Rise symmetrical. Breath sounds diminished at the bases. HEART: S1, S2. ABDOMEN: Soft. Bowel tones present. EXTREMITIES: Without cyanosis. B hands swelling improved. ASSESSMENT: 1. S/p pneumonia 2. B hand cellulitis secondary to IV infiltration==> resolved. 3. Anemia. 4. History of mitral valve prolapse. 5. ALLERGY TO MULTIPLE ANTIBIOTICS. PLAN: Completed abx, stable, will see prn DW staff/pt Problems: Consultation Date/Type/Reason Admit Date/Time Aug 16, 2016 at 15:52 Type of Consultation: ID Exam/Review of Systems Vital Signs Vitals Vital Signs Date Time Temp Pulse Resp B/P Pulse Ox O2 Delivery O2 Flow Rate FiO2 08/27/16 07:57 98.6 77 18 133/63 95 08/27/16 02:31 21 08/26/16 19:46 Nasal Cannula 2.0 Intake and Output 08/26/16 08/26/16 08/27/16 15:00 23:00 07:00 Intake Total 1400 ml 360 ml Output Total 1000 ml Balance 1400 ml -640 ml Results Result Diagram: 08/26/16 0545 08/26/16 0545 Medications Medications Current Medications Tamsulosin HCl (Flomax) 0.4 mg HS PO Last administered on 08/26/16 21:06; Admin Dose 0.4 MG; Start 08/16/16 at 21:00 Trazodone HCl (Desyrel) 100 mg QHS PO Last administered on 08/26/16 21:05; Admin Dose 100 MG; Start 08/16/16 at 21:00 Atorvastatin Calcium (Lipitor) 10 mg DAILY@21 PO Last administered on 21:06; Admin Dose 10 MG; Start 08/16/16 at 21:00 Clonidine (Catapres) 0.1 mg Q4 PRN PO sbp >160; Start 08/16/16 at 18:30 Guaifenesin/ Codeine Phosphate (Robitussin Ac Liquid Cup) 5 ml Q6H PRN PO COUGH Last administered on 08/26/16 21:12; Admin Dose 5 ML; Start 08/17/16 at 08:30 Guaifenesin/ Codeine Phosphate (Robitussin Ac Liquid Cup) 10 ml Q6H PRN PO COUGH Last administered on 08/23/16 22:20; Admin Dose 10 ML; Start 08/17/16 at 08:30 Acetaminophen (Tylenol Tab) 650 mg Q6H PRN PO PAIN AND OR ELEVATED TEMP Last administered on 08/26/16 01:50; Admin Dose 650 MG; Start 08/23/16 at 12:30 Pantoprazole (Protonix Tab) 40 mg BID@ PO Last administered on 08/24/16 06:13; Admin Dose 40 MG; Start 08/23/16 at 18:00 Dicyclomine HCl (Bentyl) 20 mg QID PO Last administered on 08/27/16 12:16; Admin Dose 20 MG; Start 08/24/16 at 18:00 Chlordiazepoxide (Librium) 10 mg QID PO Last administered on 08/27/16 12:16; Admin Dose 10 MG; Start 08/24/16 at 18:00 Phenol (Cepastat Lozenge) 1 lozenge Q1H PRN MT SORE THROAT; Start 08/26/16 at 16:30 Clotrimazole (Mycelex Wendy) 10 mg QID MT Last administered on 08/27/16 12:17 ; Admin Dose 10 MG; Start 08/26/16 at 17:41 Tobramycin/ Dexamethasone (Tobradex Oph Drop) 2 drop Q4HWA BOTH EYES Last administered on 08/27/16 12:16; Admin Dose 2 DROP; Start 08/27/16 at 09:00 BOWEN SALEH NP Aug 27, 2016 15:38
[2016-08-27 19:19] VITALS: BP 140/68; PULSE 78; RESP 16
[2016-08-27] MEDS: traZODone 100 MG TAB PO SCH ×2 (20:16→20:27)
[2016-08-27] MEDS: ATORVASTATIN 10 MG TAB PO SCH (20:17)
[2016-08-27] MEDS: TAMSULOSIN (SR) 0.4 MG CAP PO SCH (20:17)
[2016-08-27] MEDS: GUAIFENESIN/CODEINE 5ML CUP PO PRN ×2 (20:24→20:28)
== END 2016-08-27 22:05 | DRG 194 ==
LOC: E/R 14:32 → MS2 15:52
PROVIDERS: ADMIT Internal Medicine; ATTEND Internal Medicine
DX: J18.0 Bronchopneumonia, unspecified organism (principal); E87.1 Hypo-osmolality and hyponatremia; L03.113 Cellulitis of right upper limb; D64.9 Anemia, unspecified; D47.2 Monoclonal gammopathy; L03.114 Cellulitis of left upper limb; T80.29XA Infection following other infusion, transfusion and therapeutic injection, initial encounter; I10 Essential (primary) hypertension; J20.9 Acute bronchitis, unspecified; K58.9 Irritable bowel syndrome, unspecified; Z87.891 Personal history of nicotine dependence; K21.9 Gastro-esophageal reflux disease without esophagitis
CPT/HCPCS: 36415; 71010; 71260; 71275; 73722; 77075; 78582; 80048; 80053; 81001; 81003; 82247; 82248; 82270; 82607; 82728; 82746; 82784; 83010; 83540; 83605; 83615; 83930; 83935; 84155; 84165; 84300; 84484; 85014; 85018; 85025; 85378; 85610; 85651; 85730; 86038; 86157; 86320; 86325; 87040; 87070; 87086; 93005; 93971; 94664; 96361; 96365; 96375; 97116; 97162; 97530; A9540; C9113; J1956; J2405; J2916; J3480; J7030; Q9967

== ENCOUNTER 2016-08-27 17:15 | Inpatient (IN) | payer MEDICARE, OTHER ==
[~2016-08-27] VITALS: Ht 157.5 cm; Wt 63.4 kg
[~2016-08-27 17:15] MED LIST changes: +CHLO1CAP57 PO; +MAXZ25 PO; +SIMV10TA PO; +TAMS0.4C2 PO; +TRAZ100T15 PO; -[UNRECOGNIZED DRUG - REMARK]
[2016-08-27 22:30] VITALS: Ht 157.5 cm; Wt 63.4 kg
[2016-08-27] MEDS ORDERED: GUAIFENESIN/CODEINE 5ML CUP PO PRN (23:05)
[2016-08-28] MEDS: TOBRAMYCIN/DEXAMETH 2.5 ML OPH BOTH EYES SCH ×6 (01:00→21:05)
--- NOTE | 2016-08-28 05:33 | PN ---
DATE: 08/27/2016 SUBJECTIVE: Patient is awake and alert. She still has some cough, but it is much improved. Her an tibiotic treatment is now completed and the patient is no longer on antibiotics. She has been trans ferred today to [facility] for reambulation. When the patient came into the hospital, she was fully ambulatory and it is hoped that we will be able to return her to that state of activity on ce again. The urine immunofixation was negative. The patient appears to have a gammopathy of undete rmined significance. No evidence of multiple myeloma at this time. OBJECTIVE: VITAL SIGNS: She is afebrile. Her blood pressure was 140/68, pulse was 78, respiratory rate is 18, and pulse ox was 96% on room air. Throat culture revealed normal respiratory maci. Urine culture revealed mixed gram-positive organi sms. The patient appears to be well improved and is now in only for rehabilitation and reambulation. Dictated By: AGUSTINA PALMA/ROWDY Conf#: [id number] DID#: [id number]
[2016-08-28] MEDS: CEPASTAT LOZENGE MT PRN (05:58)
[2016-08-28] MEDS: PANTOPRAZOLE (EC) 40 MG TAB PO SCH ×2 (06:00→17:02)
[2016-08-28 06:50] LABS: ADD UMIC NO; URINE BILIRUBIN (Dip) NEGATIVE (NEGATIVE); URINE BLOOD (Dip) NEGATIVE (NEGATIVE); URINE COLOR LT. YELLOW (YELLOW); URINE GLUCOSE (Dip) NEGATIVE (NEGATIVE); URINE KETONES (Dip) NEGATIVE (NEGATIVE); URINE LEUKOCYTE ESTERASE (Dip) NEGATIVE (NEGATIVE); URINE NITRITE (Dip) NEGATIVE (NEGATIVE); URINE TOTAL PROTEIN (Dip) NEGATIVE (NEGATIVE); URINE UROBILINOGEN (Dip) 0.2 E.U./dL (0.1-1.0)
[2016-08-28 07:35] LABS: ADD SCAN DIFF NO
[2016-08-28 07:49] LABS: BASOPHIL # 0.1 10^3/ul (0.0-0.1); BASOPHILS % 0.7 % (0.0-2.0); EOSINOPHILS # 0.3 10^3/ul (0.0-0.5); EOSINOPHILS % 3.3 % (0.0-7.0); HEMATOCRIT 31.6 % (37.0-47.0); HEMOGLOBIN 10.2 g/dl (12.0-16.0); LYMPHOCYTES # 1.8 10^3/ul (0.8-2.9); LYMPHOCYTES % 19.4 % (15.0-51.0); MEAN CORPUSCULAR HEMOGLOBIN 29.1 pg (29.0-33.0); MEAN CORPUSCULAR HGB CONC 32.3 g/dl (32.0-37.0); MEAN PLATELET VOLUME 10.5 fl (7.4-10.4); MONOCYTE # 0.8 10^3/ul (0.3-0.9); MONOCYTES % 8.2 % (0.0-11.0); NEUTROPHIL # 6.3 10^3/ul (1.6-7.5); NEUTROPHILS % 67.2 % (39.0-77.0); PLATELET COUNT 418 10^3/UL (140-415); RED BLOOD COUNT 3.51 10^6/ul (4.20-5.40); RED CELL DISTRIBUTION WIDTH 13.3 % (11.5-14.5); WHITE BLOOD COUNT 9.4 10^3/ul (4.8-10.8)
[2016-08-28 08:16] LABS: ALBUMIN 3.1 g/dl (3.3-4.9); POTASSIUM 3.1 mmol/L (3.5-5.1)
[2016-08-28 08:18] LABS: CREATININE 0.58 mg/dl (0.44-1.00)
[2016-08-28 08:19] LABS: ALBUMIN/GLOBULIN RATIO 1.06; BILIRUBIN,INDIRECT 0.2 mg/dl (0-1.1); BILIRUBIN,TOTAL 0.2 mg/dl (0.2-1.3)
[2016-08-28] MEDS: DICYCLOMINE 10 MG CAP PO SCH ×4 (08:49→21:06)
[2016-08-28] MEDS: CLOTRIMAZOLE 10 MG TROCHE MT SCH ×4 (08:49→22:27)
[2016-08-28] MEDS: CHLORDIAZEPOXIDE 5 MG CAP PO SCH ×4 (08:49→21:07)
--- NOTE | 2016-08-28 10:11 | CONS ---
DATE OF ADMISSION: 08/27/2016 DATE OF CONSULTATION: 08/28/2016 TYPE OF CONSULTATION: Rehabilitation Post-Admission Physician Evaluation REHABILITATION IMPAIRMENT CATEGORY: Pulmonary debility secondary to chronic obstructive pulmonary disease, pneumonia, bronchitis. ACTIVE COMORBIDITIES: 1. Bilateral hand cellulitis. 2. Anemia. 3. Irritable bowel syndrome. 4. Hypertension. 5. Osteoporosis. 6. Monoclonal IgG kappa band. 7. Impairments in self-care and mobility. HISTORY OF PRESENT ILLNESS: The patient is a very pleasant 81-year-old female with a history of multiple medical comorbidities, who was admitted with increased cough, weakness, shortness of breath. The patient noted to have pneumonia with leukocytosis. The patient's hospital course also notable for bilateral hand cellulitis in addition to anemia. The patient has been left with significant impairments in self-care and mobility as compared to baseline, and has been cleared to transfer to the rehabilitation unit for comprehensive interdisciplinary rehab care. FUNCTIONAL HISTORY: Prior to recent events, she was independent in self-care tasks and mobility. Currently, she requires moderate assist for self-care and mobility tasks. I have reviewed the preadmission screen and the patient's current functional status is consistent with the preadmission screen. SOCIAL HISTORY: The patient lives at home with her ; however, unfortunately her is in the hospital ICU at this time. PAST MEDICAL HISTORY: 1. Hypertension. 2. Anemia. 3. Osteoporosis. 4. Mitral valve prolapse. 5. Irritable bowel syndrome. 6. History of appendectomy. 7. History of hysterectomy and oophorectomy. 8. History of recent duodenal polypectomy. CURRENT MEDICATIONS: 1. Lipitor 10 mg p.o. daily. 2. Librium 10 mg p.o. q.i.d. 3. Catapres p.r.n. 4. Bentyl 20 mg p.o. q.i.d. 5. Robitussin. 6. Protonix 40 mg p.o. daily. 7. Flomax 0.4 mg p.o. at bedtime. 8. TobraDex eyedrops. 9. Desyrel 100 mg p.o. at bedtime. ALLERGIES: 1. SULFA. 2. DOXYCYCLINE 3. ERYTHROMYCIN. 4. CLINDAMYCIN. 5. RELAFEN. 6. AMOXICILLIN. PHYSICAL EXAMINATION: VITAL SIGNS: The patient is currently afebrile with stable vital signs. HEENT: The extraocular motions are intact. Oropharynx is clear. NECK: Supple. LUNGS: Clear anteriorly. CARDIAC: S1, S2. ABDOMEN: Soft, nontender, positive bowel sounds. NEUROLOGIC: The patient is awake and alert and oriented x3. She can follow simple 1-step commands. Cranial nerves are grossly intact. She has good strength in bilateral upper extremity, antigravity strength in bilateral lower extremity. She does have some impaired dynamic balance. PLAN: The patient has been admitted for comprehensive interdisciplinary acute rehab and is anticipated to tolerate 3 hours of daily therapy in divided doses for at least 5/7 days a week. The treatment plan will include: 1. Physical therapy to focus on bed mobility, transfers, and household ambulation with the goal of having the patient reach a standby assist level. 2. Occupational therapy to focus on hygiene, grooming, dressing, bathing, and toileting activities with the goal of having the patient reach a standby assist level. 3. Rehabilitation nursing for carryover of therapeutic interventions, the goal of continent of bowel and bladder, and the goal of patient education with regard to the aforementioned issues. ESTIMATED LENGTH OF STAY: 10 days. DISPOSITION GOAL: Home. Barrier: weakness Rehab: Interdisciplinary rehab I acknowledge that I performed a full physical examination on this patient within 24 hours of admission to the rehabilitation unit. I believe the patient is a good candidate for comprehensive interdisciplinary acute rehab and is anticipated to make reasonable goals in a reasonable period of time as outlined above. Dictated By: HERBER BLUE/ROWDY Conf#: [id number] DID#: [id number]
[2016-08-28] MEDS: POTASSIUM CHLORIDE (SR) 20 MEQ TAB PO SCH (10:12)
[2016-08-28] MEDS ORDERED: MAGNESIUM HYDROXIDE 30ML CUP PO PRN (12:30)
[2016-08-28] MEDS ORDERED: BISACODYL 10 MG SUPP PR PRN (12:30)
[2016-08-28] MEDS: DOCUSATE SODIUM 100 MG CAP PO SCH ×2 (12:53→21:06)
[2016-08-28] MEDS: FERROUS FUMARATE (SR) TAB PO SCH ×2 (12:54→21:06)
[2016-08-28] MEDS: ACETAMINOPHEN 325 MG TAB PO PRN ×2 (12:54→21:50)
[2016-08-28 20:05] VITALS: BP 136/62; RESP 18
[2016-08-28] MEDS: traZODone 100 MG TAB PO SCH (21:00)
[2016-08-28] MEDS: TAMSULOSIN (SR) 0.4 MG CAP PO SCH (21:06)
[2016-08-28] MEDS: ATORVASTATIN 10 MG TAB PO SCH (21:06)
[2016-08-28] MEDS: SENNA TAB PO SCH (21:06)
[2016-08-29] MEDS: TOBRAMYCIN/DEXAMETH 2.5 ML OPH BOTH EYES SCH ×6 (01:00→20:24)
[2016-08-29] MEDS: PANTOPRAZOLE (EC) 40 MG TAB PO SCH ×2 (06:00→17:45)
--- NOTE | 2016-08-29 06:12 | PN ---
DATE: 08/28/2016 SUBJECTIVE: The patient awake and alert. She now complains of pain in her back and pain in her thr oat. Throat culture revealed normal maci. The patient will receive an x-ray of her lumbar spine t o see why she is having pain in her back. CHEST: Clear to A and P. HEART: Normal sinus rhythm. No murmur, no enlargement. ABDOMEN: Liver, kidneys, spleen are not palpable. Bowel sounds are normal. There are no intraabdo olinda masses or bruits. EXTREMITIES: No ankle edema. No pretibial edema. The patient has some cellulitis of both hands. She still has a Hep-Lock in her right hand and this will be removed as it is a possible cause of inf ection. VITAL SIGNS: Temperature today is 99.4, blood pressure is 136/62, pulse is 83, and respiratory rate is 18. Urine output was 950. LABORATORY DATA: White blood cell count 9400, hemoglobin 10.2, hematocrit 31.6%, platelet count is high at 418,000. Electrolytes: Sodium 139, potassium 3.1 low, chloride 103, carbon dioxide 28, BUN 9, creatinine 0.58, calcium 9, total protein 6, albumin 3.1, globulin 2.9, albumin globulin ratio 1 .106. Throat culture shows normal respiratory maci. The patient is ambulating and appears to be m aking satisfactory progress. She appears comfortable. No more nausea. The patient has her Hep-Loc k discontinued and she is to have an x-ray of her lumbar spine. Dictated By: AGUSTINA PALMA/ROWDY Conf#: [id number] DID#: [id number]
[2016-08-29] MEDS: ACETAMINOPHEN 325 MG TAB PO PRN (06:53)
[2016-08-29 08:00] VITALS: BP 139/63; PULSE 68; RESP 20
[2016-08-29] MEDS: DOCUSATE SODIUM 100 MG CAP PO SCH ×2 (08:27→20:24)
[2016-08-29] MEDS: POTASSIUM CHLORIDE (SR) 20 MEQ TAB PO SCH (08:27)
[2016-08-29] MEDS: CLOTRIMAZOLE 10 MG TROCHE MT SCH ×4 (08:28→20:24)
[2016-08-29] MEDS: CHLORDIAZEPOXIDE 5 MG CAP PO SCH ×4 (08:28→20:25)
[2016-08-29] MEDS: FERROUS FUMARATE (SR) TAB PO SCH ×3 (08:31→20:25)
[2016-08-29] MEDS: DICYCLOMINE 10 MG CAP PO SCH ×4 (08:31→20:24)
[2016-08-29 08:44] LABS: ADD SCAN DIFF NO
[2016-08-29 08:52] LABS: BASOPHIL # 0.1 10^3/ul (0.0-0.1); BASOPHILS % 0.7 % (0.0-2.0); EOSINOPHILS # 0.2 10^3/ul (0.0-0.5); EOSINOPHILS % 2.3 % (0.0-7.0); HEMATOCRIT 30.1 % (37.0-47.0); HEMOGLOBIN 9.6 g/dl (12.0-16.0); LYMPHOCYTES % 21.1 % (15.0-51.0); MEAN CORPUSCULAR HEMOGLOBIN 28.8 pg (29.0-33.0); MEAN CORPUSCULAR HGB CONC 31.9 g/dl (32.0-37.0); MEAN CORPUSCULAR VOLUME 90.4 fl (82.0-101.0); MEAN PLATELET VOLUME 10.9 fl (7.4-10.4); MONOCYTE # 1.1 10^3/ul (0.3-0.9); MONOCYTES % 11.1 % (0.0-11.0); NEUTROPHILS % 63.3 % (39.0-77.0); PLATELET COUNT 401 10^3/UL (140-415); RED BLOOD COUNT 3.33 10^6/ul (4.20-5.40); RED CELL DISTRIBUTION WIDTH 13.5 % (11.5-14.5); WHITE BLOOD COUNT 9.5 10^3/ul (4.8-10.8)
[2016-08-29 09:08] LABS: CREATININE 0.56 mg/dl (0.44-1.00); POTASSIUM 3.5 mmol/L (3.5-5.1)
--- NOTE | 2016-08-29 14:57 | RADRPT ---
PROCEDURE: XR Lumbar Spine. CLINICAL INDICATION: Low back pain. TECHNIQUE: AP, lateral and cone-down lateral view of the lumbar spine were obtained. COMPARISON: No prior studies are available for comparison. FINDINGS: There are 5 lumbar vertebra. The sacrum and SI joints are normal. The intervertebral disk spaces a re normal except for mild disk space narrowing and ventral spondylosis at L5-S1. The neural canal a nd nerve root foramina are unremarkable. The articular facets are normal. There is no evidence of s pondylolysis or spondylolisthesis. IMPRESSION: 1. Strain lumbar curvature and a reflect paraspinal musculature spasm. 2. Mild disk space narrowing at L5-S1 with ventral spondylosis. RPTAT:AAJJ Physician Iris Date Time Electronically viewed and signed by Physician Iris on 08/29/2016 14:57 /
[2016-08-29 19:22] VITALS: BP 127/58; RESP 20
--- NOTE | 2016-08-29 20:08 | PN ---
DATE: 08/29/2016 SUBJECTIVE: The patient is awake and alert. No more nausea. No more vomiting. No abdominal pain . OBJECTIVE: HEART: Normal sinus rhythm. LUNGS: Clear to A and P. ABDOMEN: Liver, kidneys, spleen are not palpable. Bowel sounds are normal. There are no intraabdo olinda masses or bruits. EXTREMITIES: No ankle edema. The patient is ambulating and doing well in rehabilitation. VITAL SIGNS: She is afebrile, blood pressure is 139/63, pulse is 68, respiratory rate is 20. LABORATORY DATA: White blood cell count 9,500; hemoglobin 9.6, hematocrit 30.1%, platelet count is normal. Electrolytes: Sodium 133, potassium 3.5, chloride 101, carbon dioxide 27, BUN 10, creatini ne 0.56, calcium 9.0, glucose 91. MRSA is negative. IMAGING: X-ray of the lumbar spine revealed strain, lumbar curvature and a reflexed paraspinal musc ulature spasm. Mild disk space narrowing at the L5-S1 with ventral spondylosis. She will get an MR I of the lumbar spine. The patient still complaining of pain in the lumbar spine area. Dictated By: AGUSTINA LY MD WR/NTS Conf#: [id number] DID#: [id number] CC: HERBER MAYNARD MD;*EndCC*
[2016-08-29] MEDS: SENNA TAB PO SCH (20:25)
[2016-08-29] MEDS: TAMSULOSIN (SR) 0.4 MG CAP PO SCH (20:25)
[2016-08-29] MEDS: ATORVASTATIN 10 MG TAB PO SCH (20:25)
[2016-08-29] MEDS: traZODone 100 MG TAB PO SCH (20:27)
[2016-08-30] MEDS: TOBRAMYCIN/DEXAMETH 2.5 ML OPH BOTH EYES SCH ×6 (01:00→20:32)
[2016-08-30] MEDS: PANTOPRAZOLE (EC) 40 MG TAB PO SCH ×2 (06:00→18:00)
[2016-08-30 07:16] LABS: ADD SCAN DIFF NO
[2016-08-30 07:23] LABS: BASOPHIL # 0.1 10^3/ul (0.0-0.1); BASOPHILS % 1.2 % (0.0-2.0); EOSINOPHILS # 0.3 10^3/ul (0.0-0.5); EOSINOPHILS % 4.3 % (0.0-7.0); HEMATOCRIT 29.8 % (37.0-47.0); HEMOGLOBIN 9.5 g/dl (12.0-16.0); LYMPHOCYTES % 30.6 % (15.0-51.0); MEAN CORPUSCULAR HEMOGLOBIN 28.8 pg (29.0-33.0); MEAN CORPUSCULAR HGB CONC 31.9 g/dl (32.0-37.0); MEAN CORPUSCULAR VOLUME 90.3 fl (82.0-101.0); MEAN PLATELET VOLUME 10.8 fl (7.4-10.4); MONOCYTE # 0.7 10^3/ul (0.3-0.9); MONOCYTES % 10.6 % (0.0-11.0); NEUTROPHIL # 3.4 10^3/ul (1.6-7.5); NEUTROPHILS % 52.2 % (39.0-77.0); PLATELET COUNT 410 10^3/UL (140-415); RED CELL DISTRIBUTION WIDTH 13.5 % (11.5-14.5); WHITE BLOOD COUNT 6.5 10^3/ul (4.8-10.8)
[2016-08-30 07:30] VITALS: BP 142/67; RESP 18
[2016-08-30 07:30] LABS: POTASSIUM 3.4 mmol/L (3.5-5.1)
[2016-08-30 07:33] LABS: CALCIUM 8.7 mg/dl (8.4-10.2); CREATININE 0.49 mg/dl (0.44-1.00)
[2016-08-30] MEDS: CLOTRIMAZOLE 10 MG TROCHE MT SCH ×4 (08:02→20:32)
[2016-08-30] MEDS: DICYCLOMINE 10 MG CAP PO SCH ×4 (08:02→20:32)
[2016-08-30] MEDS: DOCUSATE SODIUM 100 MG CAP PO SCH ×2 (08:02→20:32)
[2016-08-30] MEDS: FERROUS FUMARATE (SR) TAB PO SCH ×3 (08:03→20:32)
[2016-08-30] MEDS: CHLORDIAZEPOXIDE 5 MG CAP PO SCH ×4 (08:03→20:32)
[2016-08-30] MEDS: POTASSIUM CHLORIDE (SR) 20 MEQ TAB PO SCH (08:03)
--- NOTE | 2016-08-30 09:39 | CONS ---
Date/Time of Note Date/Time of Note DATE: 08/30/16 TIME: 09:38 Consult Date/Type/Reason Admit Date/Time Aug 27, 2016 at 22:25 Initial Consult Date Objective Vital Signs Date Time Temp Pulse Resp B/P Pulse Ox O2 Delivery O2 Flow Rate FiO2 08/30/16 07:30 98.3 71 18 142/67 92 08/29/16 21:57 Nasal Cannula 2.0 Intake and Output 08/29/16 08/29/16 08/30/16 15:00 23:00 07:00 Intake Total 460 ml 350 ml Balance 460 ml 350 ml INTERDISCIPLINARY TEAM CONFERENCE BOWEL- Cont BLADDER-Cont SKIN- intact OT- DRESSING-min/mod BATHING-min/mod TOILETING-min/mod PT- BED MOBILITY-cga TRANSFERS-cga AMBULATION-cga 150 feet A/P- Interdisciplinary team conference held today. Please see interdisciplinary sheet. Working toward d.c. on 09/04 with post discharge follow up of physical therapy, occupational therapy. Results/Medications Result Diagram: 08/30/16 0603 08/30/16 0603 Results 24 hrs Laboratory Tests Test 08/30/16 06:03 White Blood Count 6.5 # Red Blood Count 3.30 L Hemoglobin 9.5 L Hematocrit 29.8 L Mean Corpuscular Volume 90.3 Mean Corpuscular Hemoglobin 28.8 L Mean Corpuscular Hemoglobin Concent 31.9 L Red Cell Distribution Width 13.5 Platelet Count 410 Mean Platelet Volume 10.8 H Neutrophils % 52.2 Lymphocytes % 30.6 Monocytes % 10.6 Eosinophils % 4.3 Basophils % 1.2 Nucleated Red Blood Cells % 0.0 Neutrophils # 3.4 Lymphocytes # 2.0 Monocytes # 0.7 Eosinophils # 0.3 Basophils # 0.1 Nucleated Red Blood Cells # 0.0 Sodium Level 137 Potassium Level 3.4 L Chloride Level 102 Carbon Dioxide Level 26 Anion Gap 12 Blood Urea Nitrogen 7 Creatinine 0.49 Glucose Level 85 Calcium Level 8.7 Medications Current Medications Tamsulosin HCl (Flomax) 0.4 mg HS PO Last administered on 08/29/16t 20:25; Admin Dose 0.4 MG; Start 08/27/16 at 23:05 Trazodone HCl (Desyrel) 100 mg QHS PO ; Start 08/27/16 at 23:05 Atorvastatin Calcium (Lipitor) 10 mg DAILY@21 PO Last administered on 20:25; Admin Dose 10 MG; Start 08/27/16 at 23:05 Clonidine (Catapres) 0.1 mg Q4 PRN PO sbp >160; Start 08/27/16 at 23:05 Guaifenesin/ Codeine Phosphate (Robitussin Ac Liquid Cup) 5 ml Q6H PRN PO COUGH ; Start 08/27/16 at 23:05 Guaifenesin/ Codeine Phosphate (Robitussin Ac Liquid Cup) 10 ml Q6H PRN PO COUGH; Start 08/27/16 at 23:05 Acetaminophen (Tylenol Tab) 650 mg Q6H PRN PO PAIN AND OR ELEVATED TEMP Last administered on 08/29/16 06:53; Admin Dose 650 MG; Start 08/27/16 at 23:05 Pantoprazole (Protonix Tab) 40 mg BID@,18 PO ; Start 08/27/16 at 23:05 Dicyclomine HCl (Bentyl) 20 mg QID PO Last administered on 08/30/16 08:02; Admin Dose 20 MG; Start 08/27/16 at 23:05 Chlordiazepoxide (Librium) 10 mg QID PO Last administered on 08/30/16 08:03; Admin Dose 10 MG; Start 08/27/16 at 23:05 Phenol (Cepastat Lozenge) 1 lozenge Q1H PRN MT SORE THROAT Last administered on 08/28/16 05:58; Admin Dose 1 LOZENGE; Start 08/27/16 at 23:05 Clotrimazole (Mycelex Wendy) 10 mg QID MT Last administered on 08/30/16 08:02 ; Admin Dose 10 MG; Start 08/27/16 at 23:05 Tobramycin/ Dexamethasone (Tobradex Oph Drop) 2 drop Q4HWA BOTH EYES Last administered on 08/30/16 08:02; Admin Dose 2 DROP; Start 08/27/16 at 23:05 Docusate Sodium/ Ferrous Fumarate (Ameena-Sequels) 1 tab TID PO Last administered on 08/30/16 08:03; Admin Dose 1 TAB; Start 08/28/16 at 13:00 Potassium Chloride (Klor-Con 20) 20 meq DAILY PO Last administered on 08:03; Admin Dose 20 MEQ; Start 08/28/16 at 09:40 Docusate Sodium (Colace) 100 mg BID PO Last administered on 08/30/16 08:02; Admin Dose 100 MG; Start 08/28/16 at 13:00 Senna (Senokot) 1 tab HS PO Last administered on 08/29/16 20:25; Admin Dose 1 TAB; Start 08/28/16 at 21:00 Bisacodyl (Dulcolax Supp) 10 mg Q24H PRN [place] CONSTIPATION; Start 08/28/16 at 12: 30 Magnesium Hydroxide (Milk Of Mag) 30 ml BID PRN PO CONSTIPATION; Start at 12:30 Lactulose (Enulose) 20 gm Q24H PRN PO CONSTIPATION; Start 08/28/16 at 12:30 HERBER MAYNARD MD Aug 30, 2016 09:38 HERBER MAYNARD MD Aug 30, 2016 09:38
[2016-08-30 20:13] VITALS: BP 160/65; RESP 18
[2016-08-30] MEDS: ATORVASTATIN 10 MG TAB PO SCH (20:32)
[2016-08-30] MEDS: TAMSULOSIN (SR) 0.4 MG CAP PO SCH (20:32)
[2016-08-30] MEDS: SENNA TAB PO SCH (20:32)
[2016-08-30] MEDS: traZODone 100 MG TAB PO SCH (20:33)
[2016-08-31] MEDS: TOBRAMYCIN/DEXAMETH 2.5 ML OPH BOTH EYES SCH ×6 (01:00→21:57)
[2016-08-31] MEDS: PANTOPRAZOLE (EC) 40 MG TAB PO SCH ×2 (06:00→17:40)
[2016-08-31] MEDS: DICYCLOMINE 10 MG CAP PO SCH ×4 (08:41→21:58)
[2016-08-31] MEDS: DOCUSATE SODIUM 100 MG CAP PO SCH ×2 (08:41→21:00)
[2016-08-31] MEDS: CLOTRIMAZOLE 10 MG TROCHE MT SCH ×4 (08:41→21:59)
[2016-08-31] MEDS: POTASSIUM CHLORIDE (SR) 20 MEQ TAB PO SCH (08:41)
[2016-08-31] MEDS: CHLORDIAZEPOXIDE 5 MG CAP PO SCH ×4 (08:41→21:58)
[2016-08-31] MEDS: FERROUS FUMARATE (SR) TAB PO SCH ×3 (08:41→21:57)
--- NOTE | 2016-08-31 12:56 | CONS ---
Date/Time of Note Date/Time of Note DATE: 08/31/16 TIME: 12:55 Consult Date/Type/Reason Admit Date/Time Aug 27, 2016 at 22:25 Subjective No new complaints Objective pulm-cta abd-soft cga ambulation Vital Signs Date Time Temp Pulse Resp B/P Pulse Ox O2 Delivery O2 Flow Rate FiO2 08/30/16 20:13 98.4 72 18 160/65 93 08/30/16 08:26 Nasal Cannula 2.0 Intake and Output 08/30/16 08/30/16 08/31/16 15:00 23:00 07:00 Intake Total 860 ml 360 ml Balance 860 ml 360 ml Results/Medications Result Diagram: 08/30/16 0603 08/30/16 0603 Medications Current Medications Tamsulosin HCl (Flomax) 0.4 mg HS PO Last administered on 08/30/16 20:32; Admin Dose 0.4 MG; Start 08/27/16 at 23:05 Trazodone HCl (Desyrel) 100 mg QHS PO ; Start 08/27/16 at 23:05 Atorvastatin Calcium (Lipitor) 10 mg DAILY@21 PO Last administered on 20:32; Admin Dose 10 MG; Start 08/27/16 at 23:05 Clonidine (Catapres) 0.1 mg Q4 PRN PO sbp >160; Start 08/27/16 at 23:05 Guaifenesin/ Codeine Phosphate (Robitussin Ac Liquid Cup) 5 ml Q6H PRN PO COUGH ; Start 08/27/16 at 23:05 Guaifenesin/ Codeine Phosphate (Robitussin Ac Liquid Cup) 10 ml Q6H PRN PO COUGH; Start 08/27/16 at 23:05 Acetaminophen (Tylenol Tab) 650 mg Q6H PRN PO PAIN AND OR ELEVATED TEMP Last administered on 08/29/16 06:53; Admin Dose 650 MG; Start 08/27/16 at 23:05 Pantoprazole (Protonix Tab) 40 mg BID@06,18 PO ; Start 08/27/16 at 23:05 Dicyclomine HCl (Bentyl) 20 mg QID PO Last administered on 08/31/16 12:48; Admin Dose 20 MG; Start 08/27/16 at 23:05 Chlordiazepoxide (Librium) 10 mg QID PO Last administered on 08/31/16 12:46; Admin Dose 10 MG; Start 08/27/16 at 23:05 Phenol (Cepastat Lozenge) 1 lozenge Q1H PRN [place] SORE THROAT Last administered on 08/28/16 05:58; Admin Dose 1 LOZENGE; Start 08/27/16 at 23:05 Clotrimazole (Mycelex Wendy) 10 mg QID MT Last administered on 08/31/16 12:48 ; Admin Dose 10 MG; Start 08/27/16 at 23:05 Tobramycin/ Dexamethasone (Tobradex Oph Drop) 2 drop Q4HWA BOTH EYES Last administered on 08/31/16 12:48; Admin Dose 2 DROP; Start 08/27/16 at 23:05 Docusate Sodium/ Ferrous Fumarate (Ameena-Sequels) 1 tab TID PO Last administered on 08/31/16 12:46; Admin Dose 1 TAB; Start 08/28/16 at 13:00 Potassium Chloride (Klor-Con 20) 20 meq DAILY PO Last administered on 08:41; Admin Dose 20 MEQ; Start 08/28/16 at 09:40 Docusate Sodium (Colace) 100 mg BID PO Last administered on 08/31/16 08:41; Admin Dose 100 MG; Start 08/28/16 at 13:00 Senna (Senokot) 1 tab HS PO Last administered on 08/30/16 20:32; Admin Dose 1 TAB; Start 08/28/16 at 21:00 Bisacodyl (Dulcolax Supp) 10 mg Q24H PRN [place] CONSTIPATION; Start 08/28/16 at 12: 30 Magnesium Hydroxide (Milk Of Mag) 30 ml BID PRN PO CONSTIPATION; Start at 12:30 Lactulose (Enulose) 20 gm Q24H PRN PO CONSTIPATION; Start 08/28/16 at 12:30 Assessment/Plan Additional Assessment/Plan Rehab- Pulmonary debility secondary to chronic obstructive pulmonary disease, pneumonia, bronchitis. Continue treatment plan Bilateral hand cellulitis. Anemia. Irritable bowel syndrome. Hypertension. HERBER MAYNARD MD Aug 31, 2016 12:56
--- NOTE | 2016-08-31 16:53 | RADRPT ---
PROCEDURE: MRI lumbar spine without contrast CLINICAL INDICATION: Back pain TECHNIQUE: An high-resolution MRI of the lumbar spine was performed utilizing the following sequen patricia: Sagittal and axial T1 weighted, sagittal and axial T2 weighted, and sagittal fat suppressed T2 . COMPARISON: Correlation lumbar spine x-ray 08/29/2016 FINDINGS: No acute vertebral compression fracture. Heterogeneous T1 hypointense marrow signal with scattered areas of T1 hyperintensity. The conus medullaris terminates at L1. T12 - L1: The disk is preserved in height. There is no significant disk protrusion, spinal canal or foraminal stenosis. L1 - L2: The disk is preserved in height. There is no significant disk protrusion, spinal canal or foraminal stenosis. L2 - L3: Grade 1 anterolisthesis. Mild disk height loss and facet arthropathy. Small disk bulge. Borderline, mild spinal canal stenosis. Mild bilateral foraminal narrowing. L3 - L4: Mild disk height loss and facet arthropathy. Moderate disk bulge results in mild to mode rate spinal canal stenosis. There is minimal bilateral foraminal narrowing. L4 - L5: Small disk bulge and facet arthropathy. No significant spinal canal or foraminal stenos is. L5 - S1: Grade 1 retrolisthesis. Moderate to severe disk height loss with an 3 mm disk osteophyte c omplex. There is no significant spinal canal stenosis. Mild bilateral foraminal narrowing. Bilater al facet capsular edema. Left renal cyst. IMPRESSION: Moderate disk bulge and mild to moderate spinal canal stenosis L3-4. Grade 1 anterolisthesis and borderline mild spinal canal narrowing L2-3. 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 Heterogeneous marrow signal may be due to red marrow reconversion or other marrow replacement proces s. Recommend clinical correlation. RPTAT: AA .Ortiz Corey MD, Date Time Electronically viewed and signed by .Ortiz Corey MD, MD on 08/31/2016 16:52 .T/
[2016-08-31] MEDS: SENNA TAB PO SCH (21:00)
[2016-08-31 21:53] VITALS: BP 146/67; RESP 18
[2016-08-31] MEDS: TAMSULOSIN (SR) 0.4 MG CAP PO SCH (21:57)
[2016-08-31] MEDS: traZODone 100 MG TAB PO SCH ×2 (21:58→22:00)
[2016-08-31] MEDS: ATORVASTATIN 10 MG TAB PO SCH (21:58)
[2016-09-01] MEDS: TOBRAMYCIN/DEXAMETH 2.5 ML OPH BOTH EYES SCH ×6 (01:00→21:36)
--- NOTE | 2016-09-01 03:41 | PN ---
DATE: 08/31/2016 SUBJECTIVE: The patient is awake and alert. No nausea, no vomiting. The patient is ambulating wit h help, but she is improving and getting more strength daily. OBJECTIVE: HEART: Normal sinus rhythm. CHEST: Clear to A and P. ABDOMEN: Liver, kidneys, ad spleen are not palpable. Bowel sounds are normal. There are no intraa bdominal masses or bruits. EXTREMITIES: No ankle edema. VITAL SIGNS: The patient is afebrile, blood pressure 146/67, pulse 74, respiratory rate 18. LABORATORY DATA: Hemoglobin 9.5, hematocrit 29.8. WBC 6500, platelet count is normal. Electrolyte s: Sodium 137, potassium 3.4, chloride 102, carbon dioxide 26, BUN 7, creatinine 0.49, glucose 85, calcium 8.7. IMAGING: MRI of the lumbar spine reveals a moderate disk bulge and mid to moderate spinal canal rock nosis at L3-L4, grade I anterolisthesis and borderline mild spinal canal narrowing at L2-L3, grade I retrolisthesis and moderate to severe discogenic disease at L5-S1, heterogeneous marrow signal may be due to red marrow reconversion or other marrow replacement process. Recommend clinical correlati on. Dictated By: AGUSTINA PALMA/ROWDY Conf#: [id number] DID#: [id number]
[2016-09-01] MEDS: PANTOPRAZOLE (EC) 40 MG TAB PO SCH ×2 (06:00→17:09)
[2016-09-01 06:37] LABS: ADD SCAN DIFF NO
[2016-09-01 06:44] LABS: BASOPHIL # 0.1 10^3/ul (0.0-0.1); BASOPHILS % 1.6 % (0.0-2.0); EOSINOPHILS # 0.3 10^3/ul (0.0-0.5); EOSINOPHILS % 4.8 % (0.0-7.0); HEMATOCRIT 32.4 % (37.0-47.0); HEMOGLOBIN 10.2 g/dl (12.0-16.0); LYMPHOCYTES % 35.1 % (15.0-51.0); MEAN CORPUSCULAR HEMOGLOBIN 28.3 pg (29.0-33.0); MEAN CORPUSCULAR HGB CONC 31.5 g/dl (32.0-37.0); MEAN PLATELET VOLUME 10.2 fl (7.4-10.4); MONOCYTE # 0.6 10^3/ul (0.3-0.9); MONOCYTES % 10.2 % (0.0-11.0); NEUTROPHIL # 2.7 10^3/ul (1.6-7.5); NEUTROPHILS % 46.7 % (39.0-77.0); PLATELET COUNT 426 10^3/UL (140-415); RED CELL DISTRIBUTION WIDTH 13.3 % (11.5-14.5); WHITE BLOOD COUNT 5.8 10^3/ul (4.8-10.8)
[2016-09-01 06:58] LABS: CALCIUM 9.1 mg/dl (8.4-10.2); CREATININE 0.55 mg/dl (0.44-1.00); POTASSIUM 3.8 mmol/L (3.5-5.1)
[2016-09-01] MEDS: CEPASTAT LOZENGE MT PRN (08:21)
[2016-09-01] MEDS: CLOTRIMAZOLE 10 MG TROCHE MT SCH ×4 (08:21→21:38)
[2016-09-01] MEDS: DOCUSATE SODIUM 100 MG CAP PO SCH ×2 (08:22→21:37)
[2016-09-01] MEDS: CHLORDIAZEPOXIDE 5 MG CAP PO SCH ×4 (08:22→21:37)
[2016-09-01] MEDS: POTASSIUM CHLORIDE (SR) 8 MEQ CAP PO SCH (08:22)
[2016-09-01] MEDS: POTASSIUM CHLORIDE (SR) 20 MEQ TAB PO SCH (08:22)
[2016-09-01] MEDS: DICYCLOMINE 10 MG CAP PO SCH ×4 (08:22→21:37)
[2016-09-01] MEDS: FERROUS FUMARATE (SR) TAB PO SCH ×3 (08:22→21:37)
--- NOTE | 2016-09-01 12:28 | CONS ---
Date/Time of Note Date/Time of Note DATE: 09/01/16 TIME: 12:27 Consult Date/Type/Reason Admit Date/Time Aug 27, 2016 at 22:25 Subjective Feeling better Objective pulm-cta abd-soft cga ambulation Vital Signs Date Time Temp Pulse Resp B/P Pulse Ox O2 Delivery O2 Flow Rate FiO2 08/31/16 21:53 98.5 74 18 146/67 94 08/30/16 08:26 Nasal Cannula 2.0 Intake and Output 08/31/16 08/31/16 09/01/16 15:00 23:00 07:00 Intake Total 1130 ml 800 ml Balance 1130 ml 800 ml Results/Medications Result Diagram: 09/01/16 0615 09/01/16 0615 Results 24 hrs Laboratory Tests Test 09/01/16 06:15 White Blood Count 5.8 Red Blood Count 3.60 L Hemoglobin 10.2 L Hematocrit 32.4 L Mean Corpuscular Volume 90.0 Mean Corpuscular Hemoglobin 28.3 L Mean Corpuscular Hemoglobin Concent 31.5 L Red Cell Distribution Width 13.3 Platelet Count 426 H Mean Platelet Volume 10.2 Neutrophils % 46.7 Lymphocytes % 35.1 Monocytes % 10.2 Eosinophils % 4.8 Basophils % 1.6 Nucleated Red Blood Cells % 0.0 Neutrophils # 2.7 Lymphocytes # 2.0 Monocytes # 0.6 Eosinophils # 0.3 Basophils # 0.1 Nucleated Red Blood Cells # 0.0 Sodium Level 137 Potassium Level 3.8 Chloride Level 104 Carbon Dioxide Level 30 Anion Gap 7 L Blood Urea Nitrogen 7 Creatinine 0.55 Glucose Level 92 Calcium Level 9.1 Medications Current Medications Tamsulosin HCl (Flomax) 0.4 mg HS PO Last administered on 08/31/16 21:57; Admin Dose 0.4 MG; Start 08/27/16 at 23:05 Trazodone HCl (Desyrel) 100 mg QHS PO ; Start 08/27/16 at 23:05 Atorvastatin Calcium (Lipitor) 10 mg DAILY@21 PO Last administered on 21:58; Admin Dose 10 MG; Start 08/27/16 at 23:05 Clonidine (Catapres) 0.1 mg Q4 PRN PO sbp >160; Start 08/27/16 at 23:05 Guaifenesin/ Codeine Phosphate (Robitussin Ac Liquid Cup) 5 ml Q6H PRN PO COUGH ; Start 08/27/16 at 23:05 Guaifenesin/ Codeine Phosphate (Robitussin Ac Liquid Cup) 10 ml Q6H PRN PO COUGH; Start 08/27/16 at 23:05 Acetaminophen (Tylenol Tab) 650 mg Q6H PRN PO PAIN AND OR ELEVATED TEMP Last administered on 08/29/16 06:53; Admin Dose 650 MG; Start 08/27/16 at 23:05 Pantoprazole (Protonix Tab) 40 mg BID@06,18 PO Last administered on 08/31/16 17:40; Admin Dose 40 MG; Start 08/27/16 at 23:05 Dicyclomine HCl (Bentyl) 20 mg QID PO Last administered on 09/01/16 12:22; Admin Dose 20 MG; Start 08/27/16 at 23:05 Chlordiazepoxide (Librium) 10 mg QID PO Last administered on 09/01/16 12:22; Admin Dose 10 MG; Start 08/27/16 at 23:05 Phenol (Cepastat Lozenge) 1 lozenge Q1H PRN MT SORE THROAT Last administered on 09/01/16 08:21; Admin Dose 1 LOZENGE; Start 08/27/16 at 23:05 Clotrimazole (Mycelex Wendy) 10 mg QID MT Last administered on 09/01/16 12:22 ; Admin Dose 10 MG; Start 08/27/16 at 23:05 Tobramycin/ Dexamethasone (Tobradex Oph Drop) 2 drop Q4HWA BOTH EYES Last administered on 09/01/16 12:21; Admin Dose 2 DROP; Start 08/27/16 at 23:05 Docusate Sodium/ Ferrous Fumarate (Ameena-Sequels) 1 tab TID PO Last administered on 09/01/16 12:22; Admin Dose 1 TAB; Start 08/28/16 at 13:00 Potassium Chloride (Klor-Con 20) 20 meq DAILY PO Last administered on 08:22; Admin Dose 20 MEQ; Start 08/28/16 at 09:40 Docusate Sodium (Colace) 100 mg BID PO Last administered on 09/01/16 08:22; Admin Dose 100 MG; Start 08/28/16 at 13:00 Senna (Senokot) 1 tab HS PO Last administered on 08/30/16 20:32; Admin Dose 1 TAB; Start 08/28/16 at 21:00 Bisacodyl (Dulcolax Supp) 10 mg Q24H PRN [place] CONSTIPATION; Start 08/28/16 at 12: 30 Magnesium Hydroxide (Milk Of Mag) 30 ml BID PRN PO CONSTIPATION; Start at 12:30 Lactulose (Enulose) 20 gm Q24H PRN PO CONSTIPATION; Start 08/28/16 at 12:30 Potassium Chloride (Micro-K) 8 meq DAILY PO Last administered on 09/01/16 08: 22; Admin Dose 8 MEQ; Start 09/01/16 at 09:00 Assessment/Plan Additional Assessment/Plan Rehab- Pulmonary debility secondary to chronic obstructive pulmonary disease, pneumonia, bronchitis. Continue rehab program Bilateral hand cellulitis-improved Anemia-monitor Irritable bowel syndrome. Hypertension. HERBER MAYNARD MD Sep 01, 2016 12:28
--- NOTE | 2016-09-01 19:35 | CONS ---
DATE OF ADMISSION: 08/27/2016 DATE OF CONSULTATION: 09/01/2016 TYPE OF CONSULTATION: Psychological. REFERRING PHYSICIAN: Herber Lancaster MD. CONSULTING PSYCHOLOGIST: Josephine Ruiz, PhD. REASON FOR CONSULTATION: This consultation was requested by Dr. Jarek Lancaster in order to evaluate the cognitive and emotional functioning of this patient related to her present medical condition. HISTORY OF PRESENT ILLNESS: The patient is an 81-year-old female. The patient has a history of multiple medical problems. The patient was admitted initially with cough, weakness and shortness of breath. The patient appeared to have pneumonia and then was cleared medically and sent to the acute rehabilitation unit for acute interdisciplinary rehabilitation. The patient is motivated to get better and does want to return home as soon as possible. The patient is frustrated about all her medical problems. The patient is also very concerned because her is presently in the ICU in the hospital. FAMILY AND SOCIAL HISTORY: The patient lives with her in a home in [place]. The patient does want to return home after discharge. The patient's is in ICU at the present time. The patient fears that she is likely to need to put him in a custodial and that she will then need to get some help to take care of her after discharge. MEDICATIONS: The patient is presently on Librium 10 mg q.i.d. and trazodone 100 mg, but the patient reports that she is not taking the trazodone. SUBSTANCE USE: The patient reports that she has not smoked in the last 10 years. The patient reports that she does not use alcohol or other drugs. MENTAL STATUS EXAMINATION: APPEARANCE: The patient was seen in her wheelchair. The patient is of average height and weight. The patient is right-handed. BEHAVIOR: The patient was cooperative during the consultation. The patient did attempt to answer all questions presented to her by the interviewer. MOOD AND AFFECT: The patient's mood appears to be slightly depressed. Affect does appear to be anxious. The patient reports that she does have chronic anxiety and has taken Librium for this for a long time. PERCEPTION: The patient reports no hallucinations or delusions. The patient was alert to person, place, situation and time. MEMORY AND COGNITION: The patient's memory and cognition appear to be basically intact. She had no difficulty recalling recent or remote events. The patient was able to say the name of the hospital, the patient was able to say the month and the year, the patient was able to say who the vice president media relations, the governor of the state and the [facility]. The patient was able to spell "world" backwards. Overall, the patient does appear to have adequate intact cognitive functioning for her age. INTELLIGENCE: Intelligence appears to fall in the average to above-average range. INSIGHT: Good. JUDGMENT: Good. THOUGHT CONTENT: The patient is concerned about her present medical condition. The patient is also very concerned about her 's present medical condition. The patient does want to return home and knows that she is going to need some care when she does return home. DISCUSSION: The patient can likely benefit from some cognitive/behavioral psychotherapy while she is on the unit. The psychotherapy would focus on her underlying level of anxiety that relates to her present medical and her ' s medical condition. 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 Thank you very much, Dr. Jarek Lancaster, for referring this individual. Please do not hesitate to call if you have additional questions. Dictated By: JOSEPHINE RUIZ PHD RK/ROWDY Conf#: [id number] DID#: [id number] CC: HERBER LANCASTER MD;*EndCC* MTDD
[2016-09-01 20:00] VITALS: BP 132/62; RESP 18
[2016-09-01] MEDS: traZODone 100 MG TAB PO SCH (21:00)
[2016-09-01] MEDS: SENNA TAB PO SCH (21:00)
[2016-09-01] MEDS: TAMSULOSIN (SR) 0.4 MG CAP PO SCH (21:38)
[2016-09-01] MEDS: ATORVASTATIN 10 MG TAB PO SCH (21:38)
[2016-09-02] MEDS: TOBRAMYCIN/DEXAMETH 2.5 ML OPH BOTH EYES SCH ×6 (01:00→20:57)
--- NOTE | 2016-09-02 01:10 | PN ---
DATE: 09/01/2016 PHYSICAL EXAMINATION: GENERAL: The patient is awake and alert. The patient has been ambulating. Today, she walked by he rself. CHEST: Clear to A and P. HEART: Normal sinus rhythm. No murmur, no enlargement. ABDOMEN: Liver, kidneys, spleen are not palpable. Bowel sounds are normal. No intraabdominal mass es or bruits. The patient is no longer nauseated and she is eating well. VITAL SIGNS: She is afebrile, blood pressure is 132/62, pulse is 74, respiratory rate is 18. DIAGNOSTIC DATA: WBC 5800, hemoglobin 10.2, hematocrit 32.4%, platelet count elevated at 426,000. Electrolytes: Sodium 137, potassium 3.8, chloride 104, BUN 7, creatinine 0.55, glucose 92, calcium 9.1. IMAGING: MRI of the lumbar spine reveals moderate disk bulge and [id number]-[id number] spinal canal sten osis at L3-L4, grade I anterolisthesis and borderline mild spinal canal narrowing, L2-L3, grade I re trolisthesis and puahxsnw-hj-reoefl discogenic disease of L5-S1. Heterogeneous marrow signal may be due to red marrow reconversion or other marrow replacement process. Recommend clinical correlation . Flruymso-sf-srytgr disk height loss, which is 3 mm disk osteophyte complex, heterogeneous T1 hypo intense marrow signal with scattered areas of T1 hyperintensity. Dictated By: AGUSTINA PALMA/NTS Conf#: [id number] DID#: [id number] CC: HERBER MAYNARD MD;*EndCC*
[2016-09-02] MEDS: PANTOPRAZOLE (EC) 40 MG TAB PO SCH ×2 (06:00→17:20)
[2016-09-02 07:30] VITALS: BP 154/69; RESP 18
[2016-09-02] MEDS: DOCUSATE SODIUM 100 MG CAP PO SCH ×2 (08:42→20:50)
[2016-09-02] MEDS: DICYCLOMINE 10 MG CAP PO SCH ×4 (08:42→20:50)
[2016-09-02] MEDS: CHLORDIAZEPOXIDE 5 MG CAP PO SCH ×4 (08:42→20:51)
[2016-09-02] MEDS: FERROUS FUMARATE (SR) TAB PO SCH ×3 (08:42→20:51)
[2016-09-02] MEDS: POTASSIUM CHLORIDE (SR) 20 MEQ TAB PO SCH (08:42)
[2016-09-02] MEDS: POTASSIUM CHLORIDE (SR) 8 MEQ CAP PO SCH (08:42)
[2016-09-02] MEDS: CLOTRIMAZOLE 10 MG TROCHE MT SCH ×4 (08:43→20:50)
--- NOTE | 2016-09-02 10:57 | PN ---
Date/Time of Note Date/Time of Note DATE: 09/02/16 TIME: 10:49 Assessment/Plan VTE Prophylaxis VTE Prophylaxis Intervention: ambulation, other Lines/Catheters IV [facility] Urinary Cath still in place: No Assessment/Plan Assessment/Plan 1. Pulmonary debility in the setting of recent pneumonia/ bronchitis. Status post course of antibiotics. With impaired mobility/gait/ADLs. SBA for gait 200ft with FWW. Pulmonary status stable, continue to monitor 02 sats, internal medicine medically managing. 2. Anemia. Continue to monitor hemoglobin/hematocrit. Continue iron supplementation. 3. Irritable bowel syndrome. Continue medical management. 4. Hypertension. Continue to monitor BP, internal medicine managing. 5. History of Osteoporosis. Managed per internal medicine. Subjective 24 Hr Interval Summary Free Text/Dictation Rehab progress note Subjective: No acute complaints. No current back pain. ROS: Denies chest pain, no shortness of breath, no abdominal pain, no nausea, no vomiting, no chills, no new weakness. Exam/Review of Systems Vital Signs Vitals Vital Signs Date Time Temp Pulse Resp B/P Pulse Ox O2 Delivery O2 Flow Rate FiO2 09/02/16 07:30 97.8 74 18 154/69 94 08/30/16 08:26 Nasal Cannula 2.0 Intake and Output 09/01/16 09/01/16 09/02/16 15:00 23:00 07:00 Intake Total 500 ml 300 ml Output Total 1550 ml Balance 500 ml -1250 ml Exam General: Awake, alert, no acute distress CV: Regular rate, s1s2 Lungs: Clear to auscultation, no wheezing Abdomens soft, nontender Extremities without cyanosis, no edema Neuro: Antigravity strength BUE/BLE. Follows simple commands. Results Result Diagram: 09/01/1661409/01/16614 Medications Medications Current Medications Tamsulosin HCl (Flomax) 0.4 mg HS PO Last administered on 09/01/16 21:38; Admin Dose 0.4 MG; Start 08/27/16 at 23:05 Trazodone HCl (Desyrel) 100 mg QHS PO ; Start 08/27/16 at 23:05 Atorvastatin Calcium (Lipitor) 10 mg DAILY@21 PO Last administered on 21:38; Admin Dose 10 MG; Start 08/27/16 at 23:05 Clonidine (Catapres) 0.1 mg Q4 PRN PO sbp >160; Start 08/27/16 at 23:05 Guaifenesin/ Codeine Phosphate (Robitussin Ac Liquid Cup) 5 ml Q6H PRN PO COUGH ; Start 08/27/16 at 23:05 Guaifenesin/ Codeine Phosphate (Robitussin Ac Liquid Cup) 10 ml Q6H PRN PO COUGH; Start 08/27/16 at 23:05 Acetaminophen (Tylenol Tab) 650 mg Q6H PRN PO PAIN AND OR ELEVATED TEMP Last administered on 08/29/16 06:53; Admin Dose 650 MG; Start 08/27/16 at 23:05 Pantoprazole (Protonix Tab) 40 mg BID@18 PO Last administered on 08/31/16 17:40; Admin Dose 40 MG; Start 08/27/16 at 23:05 Dicyclomine HCl (Bentyl) 20 mg QID PO Last administered on 09/02/16 08:42; Admin Dose 20 MG; Start 08/27/16 at 23:05 Chlordiazepoxide (Librium) 10 mg QID PO Last administered on 09/02/16 08:42; Admin Dose 10 MG; Start 08/27/16 at 23:05 Phenol (Cepastat Lozenge) 1 lozenge Q1H PRN MT SORE THROAT Last administered on 09/01/16 08:21; Admin Dose 1 LOZENGE; Start 08/27/16 at 23:05 Clotrimazole (Mycelex Wendy) 10 mg QID MT Last administered on 09/02/16 08:43 ; Admin Dose 10 MG; Start 08/27/16 at 23:05 Tobramycin/ Dexamethasone (Tobradex Oph Drop) 2 drop Q4HWA BOTH EYES Last administered on 09/01/16 21:36; Admin Dose 2 DROP; Start 08/27/16 at 23:05 Docusate Sodium/ Ferrous Fumarate (Ameena-Sequels) 1 tab TID PO Last administered on 09/02/16 08:42; Admin Dose 1 TAB; Start 08/28/16 at 13:00 Potassium Chloride (Klor-Con 20) 20 meq DAILY PO Last administered on 08:42; Admin Dose 20 MEQ; Start 08/28/16 at 09:40 Docusate Sodium (Colace) 100 mg BID PO Last administered on 09/02/16 08:42; Admin Dose 100 MG; Start 08/28/16 at 13:00 Senna (Senokot) 1 tab HS PO Last administered on 08/30/16 20:32; Admin Dose 1 TAB; Start 08/28/16 at 21:00 Bisacodyl (Dulcolax Supp) 10 mg Q24H PRN [place] CONSTIPATION; Start 08/28/16 at 12: 30 Magnesium Hydroxide (Milk Of Mag) 30 ml BID PRN PO CONSTIPATION; Start at 12:30 Lactulose (Enulose) 20 gm Q24H PRN PO CONSTIPATION; Start 08/28/16 at 12:30 Potassium Chloride (Micro-K) 8 meq DAILY PO Last administered on 09/02/16 08: 42; Admin Dose 8 MEQ; Start 09/01/16 at 09:00 TERELL FROST Sep 02, 2016 10:56
[2016-09-02 20:41] VITALS: BP 154/69; RESP 18
[2016-09-02] MEDS: TAMSULOSIN (SR) 0.4 MG CAP PO SCH (20:51)
[2016-09-02] MEDS: ATORVASTATIN 10 MG TAB PO SCH (20:51)
[2016-09-02] MEDS: SENNA TAB PO SCH (20:51)
[2016-09-02] MEDS: traZODone 100 MG TAB PO SCH (20:54)
--- NOTE | 2016-09-03 00:31 | PN ---
DATE: 09/02/2016 SUBJECTIVE: The patient awake and alert. The patient has walked all the way down to the intensive care unit of this hospital to visit her when she was accompanied by a nurse. The patient is complaining of no pain in her back, despite the fact that the MRI of her back shows involvement of one of her vertebrae. She is afebrile, blood pressure is 154/69, pulse is 69, respiratory rate is 18. No more nausea. No more vomiting. INS AND OUTS: 1600/1550 MRI of the lumbar spine reveals a heterogeneous marrow signal, may be due to red marrow reconversion after marrow replacement process. Recommend clinical correlation, moderate disk bulge and moderate spinal canal stenosis at L3-L4, anterolisthesis and borderline mild spinal canal narrowing L2-L3, r etrolisthesis and moderate to severe discogenic disease at L5-S1. The patient is complaining of no pain in her back. She is scheduled to be discharged on Tuesday. Dictated By: AGUSTINA LY MD WR/NTS Conf#: [id number] DID#: [id number] CC: HERBER MAYNARD MD;*EndCC*
[2016-09-03] MEDS: TOBRAMYCIN/DEXAMETH 2.5 ML OPH BOTH EYES SCH ×6 (01:00→20:19)
[2016-09-03] MEDS: PANTOPRAZOLE (EC) 40 MG TAB PO SCH ×2 (05:32→16:55)
[2016-09-03 06:43] LABS: ADD SCAN DIFF NO
[2016-09-03 06:49] LABS: BASOPHIL # 0.1 10^3/ul (0.0-0.1); BASOPHILS % 1.2 % (0.0-2.0); EOSINOPHILS # 0.3 10^3/ul (0.0-0.5); EOSINOPHILS % 5.1 % (0.0-7.0); HEMATOCRIT 32.8 % (37.0-47.0); HEMOGLOBIN 10.4 g/dl (12.0-16.0); LYMPHOCYTES # 2.1 10^3/ul (0.8-2.9); LYMPHOCYTES % 36.7 % (15.0-51.0); MEAN CORPUSCULAR HEMOGLOBIN 28.6 pg (29.0-33.0); MEAN CORPUSCULAR HGB CONC 31.7 g/dl (32.0-37.0); MEAN CORPUSCULAR VOLUME 90.1 fl (82.0-101.0); MEAN PLATELET VOLUME 10.5 fl (7.4-10.4); MONOCYTE # 0.6 10^3/ul (0.3-0.9); NEUTROPHIL # 2.5 10^3/ul (1.6-7.5); NEUTROPHILS % 44.4 % (39.0-77.0); PLATELET COUNT 399 10^3/UL (140-415); RED BLOOD COUNT 3.64 10^6/ul (4.20-5.40); RED CELL DISTRIBUTION WIDTH 13.4 % (11.5-14.5); WHITE BLOOD COUNT 5.6 10^3/ul (4.8-10.8)
[2016-09-03 07:22] LABS: CREATININE 0.58 mg/dl (0.44-1.00); POTASSIUM 3.8 mmol/L (3.5-5.1)
[2016-09-03 07:30] VITALS: BP 139/69; RESP 18
[2016-09-03] MEDS: DICYCLOMINE 10 MG CAP PO SCH ×4 (07:35→20:19)
[2016-09-03] MEDS: CHLORDIAZEPOXIDE 5 MG CAP PO SCH ×4 (07:35→20:20)
[2016-09-03] MEDS: CLOTRIMAZOLE 10 MG TROCHE MT SCH ×4 (08:45→20:19)
[2016-09-03] MEDS: POTASSIUM CHLORIDE (SR) 8 MEQ CAP PO SCH (08:45)
[2016-09-03] MEDS: POTASSIUM CHLORIDE (SR) 20 MEQ TAB PO SCH (08:45)
[2016-09-03] MEDS: DOCUSATE SODIUM 100 MG CAP PO SCH ×2 (08:45→20:19)
[2016-09-03] MEDS: FERROUS FUMARATE (SR) TAB PO SCH ×3 (08:46→20:19)
[2016-09-03] MEDS ORDERED: VITAMIN A & D 5 GM OINT PACKET TOP ONE (11:12)
--- NOTE | 2016-09-03 12:31 | PN ---
Date/Time of Note Date/Time of Note DATE: 09/03/16 TIME: 12:27 Assessment/Plan VTE Prophylaxis VTE Prophylaxis Intervention: ambulation Lines/Catheters IV C[facility] Type (from [facility] Saline Lock Urinary Cath still in place: No Assessment/Plan Assessment/Plan 1. Pulmonary debility in the setting of recent pneumonia/bronchitis, status post treatment with antibiotics. With impaired mobility/gait/ADLs. Gait improving now 300ft with SPV, negotiating 12 steps with SPV with bilateral rails. Pulmonary status stable, continue to monitor 02 sats, internal medicine medically managing. 2. Anemia. Hemoglobin/hematocrit improving. Continue iron supplementation. 3. History of osteoporosis. Medically managed per internal medicine. 4. Irritable bowel syndrome. Continue medical management. 5. Hypertension. Continue to monitor BP, internal medicine managing. Subjective 24 Hr Interval Summary Free Text/Dictation Rehab progress note Subjective: No acute complaints. Reports sleeping well overnight. ROS: Denies chest pain, no shortness of breath, no abdominal pain, no vomiting, no joint pain, no back pain, no chills. Exam/Review of Systems Vital Signs Vitals Vital Signs Date Time Temp Pulse Resp B/P Pulse Ox O2 Delivery O2 Flow Rate FiO2 09/03/16 07:30 98.6 74 18 139/69 94 08/30/16 08:26 Nasal Cannula 2.0 Intake and Output 09/02/16 09/02/16 09/03/16 15:00 23:00 07:00 Intake Total 620 ml 240 ml Output Total 200 ml 200 ml Balance -200 ml 420 ml 240 ml Exam General: Awake, alert, no acute distress CV: Regular rate, s1s2 Lungs: Clear to auscultation, no wheezing or crackles Abdomens soft, nontender, +bowel sounds Extremities without cyanosis, no new swelling Neuro: Follows simple commands. No new sensory changes. Antigravity strength BUE /BLE. Results Result Diagram: 09/03/16 0615 09/03/16 0615 Results 24 hrs Laboratory Tests Test 09/03/16 06:15 White Blood Count 5.6 Red Blood Count 3.64 L Hemoglobin 10.4 L Hematocrit 32.8 L Mean Corpuscular Volume 90.1 Mean Corpuscular Hemoglobin 28.6 L Mean Corpuscular Hemoglobin Concent 31.7 L Red Cell Distribution Width 13.4 Platelet Count 399 Mean Platelet Volume 10.5 H Neutrophils % 44.4 Lymphocytes % 36.7 Monocytes % 11.0 Eosinophils % 5.1 Basophils % 1.2 Nucleated Red Blood Cells % 0.0 Neutrophils # 2.5 Lymphocytes # 2.1 Monocytes # 0.6 Eosinophils # 0.3 Basophils # 0.1 Nucleated Red Blood Cells # 0.0 Sodium Level 137 Potassium Level 3.8 Chloride Level 104 Carbon Dioxide Level 29 Anion Gap 8 Blood Urea Nitrogen 12 Creatinine 0.58 Glucose Level 93 Calcium Level 9.0 Medications Medications Current Medications Tamsulosin HCl (Flomax) 0.4 mg HS PO Last administered on 09/02/16 20:51; Admin Dose 0.4 MG; Start 08/27/16 at 23:05 Trazodone HCl (Desyrel) 100 mg QHS PO ; Start 08/27/16 at 23:05 Atorvastatin Calcium (Lipitor) 10 mg DAILY@21 PO Last administered on 20:51; Admin Dose 10 MG; Start 08/27/16 at 23:05 Clonidine (Catapres) 0.1 mg Q4 PRN PO sbp >160; Start 08/27/16 at 23:05 Guaifenesin/ Codeine Phosphate (Robitussin Ac Liquid Cup) 5 ml Q6H PRN PO COUGH ; Start 08/27/16 at 23:05 Guaifenesin/ Codeine Phosphate (Robitussin Ac Liquid Cup) 10 ml Q6H PRN PO COUGH; Start 08/27/16 at 23:05 Acetaminophen (Tylenol Tab) 650 mg Q6H PRN PO PAIN AND OR ELEVATED TEMP Last administered on 08/29/16 06:53; Admin Dose 650 MG; Start 08/27/16 at 23:05 Pantoprazole (Protonix Tab) 40 mg BID@06,18 PO Last administered on 09/02/16 17:20; Admin Dose 40 MG; Start 08/27/16 at 23:05 Phenol (Cepastat Lozenge) 1 lozenge Q1H PRN [place] SORE THROAT Last administered on 09/01/16 08:21; Admin Dose 1 LOZENGE; Start 08/27/16 at 23:05 Clotrimazole (Mycelex Wendy) 10 mg QID MT Last administered on 09/03/16 08:45 ; Admin Dose 10 MG; Start 08/27/16 at 23:05 Tobramycin/ Dexamethasone (Tobradex Oph Drop) 2 drop Q4HWA BOTH EYES Last administered on 09/03/16 08:46; Admin Dose 2 DROP; Start 08/27/16 at 23:05 Docusate Sodium/ Ferrous Fumarate (Ameena-Sequels) 1 tab TID PO Last administered on 09/03/16 08:46; Admin Dose 1 TAB; Start 08/28/16 at 13:00 Potassium Chloride (Klor-Con 20) 20 meq DAILY PO Last administered on 08:45; Admin Dose 20 MEQ; Start 08/28/16 at 09:40 Docusate Sodium (Colace) 100 mg BID PO Last administered on 09/03/16 08:45; Admin Dose 100 MG; Start 08/28/16 at 13:00 Senna (Senokot) 1 tab HS PO Last administered on 09/02/16 20:51; Admin Dose 1 TAB; Start 08/28/16 at 21:00 Bisacodyl (Dulcolax Supp) 10 mg Q24H PRN [place] CONSTIPATION; Start 08/28/16 at 12: 30 Magnesium Hydroxide (Milk Of Mag) 30 ml BID PRN PO CONSTIPATION; Start at 12:30 Lactulose (Enulose) 20 gm Q24H PRN PO CONSTIPATION; Start 08/28/16 at 12:30 Potassium Chloride (Micro-K) 8 meq DAILY PO Last administered on 09/03/16 08: 45; Admin Dose 8 MEQ; Start 09/01/16 at 09:00 TERELL FROST Sep 03, 2016 12:31
[2016-09-03] MEDS: TAMSULOSIN (SR) 0.4 MG CAP PO SCH (20:19)
[2016-09-03] MEDS: traZODone 100 MG TAB PO SCH (20:19)
[2016-09-03] MEDS: SENNA TAB PO SCH (20:20)
[2016-09-03] MEDS: ATORVASTATIN 10 MG TAB PO SCH (20:20)
[2016-09-03 20:25] VITALS: BP 120/63; RESP 18
[2016-09-04] MEDS: TOBRAMYCIN/DEXAMETH 2.5 ML OPH BOTH EYES SCH ×7 (00:29→21:33)
[2016-09-04] MEDS: PANTOPRAZOLE (EC) 40 MG TAB PO SCH ×2 (06:00→17:43)
--- NOTE | 2016-09-04 06:22 | PN ---
DATE: 09/03/2016 SUBJECTIVE: The patient is awake, alert sleeps well, no more nausea. Is ambulating well with nurse s help. CHEST: Clear to A and P. HEART: Normal sinus rhythm. No murmur, no enlargement. ABDOMEN: Liver, kidneys, spleen are not palpable. Bowel sounds are normal. There are no intraabdo olinda masses or bruits. EXTREMITIES: No ankle edema. VITAL SIGNS: The patient is afebrile, blood pressure is 139/69, pulse 74, respiratory rate 18. Int ansley and output 860/400 but the patient is going to the bathroom so these are probably not accurate. LABORATORY DATA: White blood cell count 5600, hemoglobin 10.4, hematocrit 32.8%, platelet count is normal. Electrolytes: Sodium 137, potassium 3.8, chloride 104, carbon dioxide 29, BUN 12, creatini ne 0.58, glucose 93, calcium 9.0 uncorrected. To contact the senior software tester regarding the pathology in T1 consisting of possible marrow reconversion . Dictated By: AGUSTINA PALMA/ROWDY Conf#: [id number] DID#: [id number]
[2016-09-04] MEDS: POTASSIUM CHLORIDE (SR) 8 MEQ CAP PO SCH (08:26)
[2016-09-04] MEDS: DICYCLOMINE 10 MG CAP PO SCH ×4 (08:27→21:33)
[2016-09-04] MEDS: CHLORDIAZEPOXIDE 5 MG CAP PO SCH ×4 (08:27→21:34)
[2016-09-04] MEDS: FERROUS FUMARATE (SR) TAB PO SCH ×3 (08:27→21:34)
[2016-09-04] MEDS: DOCUSATE SODIUM 100 MG CAP PO SCH ×2 (08:27→21:33)
[2016-09-04] MEDS: CLOTRIMAZOLE 10 MG TROCHE MT SCH ×5 (08:28→21:33)
[2016-09-04] MEDS: POTASSIUM CHLORIDE (SR) 20 MEQ TAB PO SCH (08:28)
--- NOTE | 2016-09-04 13:12 | HP ---
DATE OF ADMISSION: 08/27/2016 SUBJECTIVE: The patient is in no acute distress. Denies having any nausea, vomiting, denies shortn ess of breath at this time. PHYSICAL EXAMINATION: VITAL SIGNS: Blood pressure 120/53, respirations 18, pulse 69, Temperature is 98.0, pulse ox at 95% on room air. HEENT: Normocephalic, atraumatic. LUNGS: Clear to auscultation bilaterally. ABDOMEN: Nontender, nondistended. CARDIOVASCULAR: Regular rate and rhythm. ASSESSMENT AND PLAN: 1. Pulmonary debility in the setting of chronic obstructive pulmonary disease, doing well. Continu es to improve. 2. Anemia continues to rise, hemoglobin today is at 10.4. 3. Hypertension, currently stable. LAB RESULTS: WBC 5.6, hemoglobin 10.4, creatinine is 0.58, potassium 3.8. Dictated By: DIERDRE DAVIS/ROWDY Conf#: [id number] DID#: [id number]
--- NOTE | 2016-09-04 13:40 | PN ---
Date/Time of Note Date/Time of Note DATE: 09/04/16 TIME: 13:38 Assessment/Plan VTE Prophylaxis VTE Prophylaxis Intervention: ambulation Lines/Catheters [facility]from [facility] Saline Lock Urinary Cath still in place: No Assessment/Plan Assessment/Plan 1. Pulmonary debility in the setting of recent PNA/ bronchitis. Treated with antibiotics. With impaired mobility/gait/ADLs. Continue to work on improving dynamic standing balance to decrease fall risk, currently fair plus. Gait mechanics overall improving. Pulmonary status stable, continue to monitor 02 sats. 2. Anemia. Continue iron supplementation. Hemoglobin/hematocrit improving on last labs. 3. Osteoporosis. Management per internal medicine. 4. Irritable bowel syndrome. Continue medical management. 5. Hypertension. Continue to monitor BP, intermittently elevaetd, internal medicine managing. Subjective 24 Hr Interval Summary Free Text/Dictation Rehab progress note Subjective: No acute complaints. Nursing reports no acute overnight events. ROS: Denies chest pain, no shortness of breath, no abdominal pain, no nausea, no vomiting. Exam/Review of Systems Vital Signs Vitals Vital Signs Date Time Temp Pulse Resp B/P Pulse Ox O2 Delivery O2 Flow Rate FiO2 09/03/16 20:25 98.0 69 18 120/63 95 Intake and Output 09/03/16 09/03/16 09/04/16 15:00 23:00 07:00 Intake Total 720 ml Balance 720 ml Exam General: Awake, alert, no acute distress CV: Regular rate, s1s2 Lungs: Clear to auscultation, no wheezing or crackles Abdomens soft, nontender, +bowel sounds Extremities without cyanosis, no new swelling Neuro: no new focal changes. Follows simple commands. Results Result Diagram: 09/03/1615 09/03/1615 Medications Medications Current Medications Tamsulosin HCl (Flomax) 0.4 mg HS PO Last administered on 09/03/16 20:19; Admin Dose 0.4 MG; Start 08/27/16 at 23:05 Trazodone HCl (Desyrel) 100 mg QHS PO Last administered on 09/03/16 20:19; Admin Dose 100 MG; Start 08/27/16 at 23:05 Atorvastatin Calcium (Lipitor) 10 mg DAILY@21 PO Last administered on 20:20; Admin Dose 10 MG; Start 08/27/16 at 23:05 Clonidine (Catapres) 0.1 mg Q4 PRN PO sbp >160; Start 08/27/16 at 23:05 Guaifenesin/ Codeine Phosphate (Robitussin Ac Liquid Cup) 5 ml Q6H PRN PO COUGH ; Start 08/27/16 at 23:05 Guaifenesin/ Codeine Phosphate (Robitussin Ac Liquid Cup) 10 ml Q6H PRN PO COUGH; Start 08/27/16 at 23:05 Acetaminophen (Tylenol Tab) 650 mg Q6H PRN PO PAIN AND OR ELEVATED TEMP Last administered on 08/29/16 06:53; Admin Dose 650 MG; Start 08/27/16 at 23:05 Pantoprazole (Protonix Tab) 40 mg BID@,18 PO Last administered on 09/02/16 17:20; Admin Dose 40 MG; Start 08/27/16 at 23:05 Phenol (Cepastat Lozenge) 1 lozenge Q1H PRN [place] SORE THROAT Last administered on 09/01/16 08:21; Admin Dose 1 LOZENGE; Start 08/27/16 at 23:05 Clotrimazole (Mycelex Wendy) 10 mg QID MT Last administered on 09/04/16 08:28 ; Admin Dose 10 MG; Start 08/27/16 at 23:05 Tobramycin/ Dexamethasone (Tobradex Oph Drop) 2 drop Q4HWA BOTH EYES Last administered on 09/04/16 08:26; Admin Dose 2 DROP; Start 08/27/16 at 23:05 Docusate Sodium/ Ferrous Fumarate (Ameena-Sequels) 1 tab TID PO Last administered on 09/04/16 12:24; Admin Dose 1 TAB; Start 08/28/16 at 13:00 Potassium Chloride (Klor-Con 20) 20 meq DAILY PO Last administered on 08:28; Admin Dose 20 MEQ; Start 08/28/16 at 09:40 Docusate Sodium (Colace) 100 mg BID PO Last administered on 09/04/16 08:27; Admin Dose 100 MG; Start 08/28/16 at 13:00 Senna (Senokot) 1 tab HS PO Last administered on 09/03/16 20:20; Admin Dose 1 TAB; Start 08/28/16 at 21:00 Bisacodyl (Dulcolax Supp) 10 mg Q24H PRN [place] CONSTIPATION; Start 08/28/16 at 12: 30 Magnesium Hydroxide (Milk Of Mag) 30 ml BID PRN PO CONSTIPATION; Start at 12:30 Lactulose (Enulose) 20 gm Q24H PRN PO CONSTIPATION; Start 08/28/16 at 12:30 Potassium Chloride (Micro-K) 8 meq DAILY PO Last administered on 09/04/16t 08: 26; Admin Dose 8 MEQ; Start 09/01/16 at 09:00 TERELL FROST Sep 04, 2016 13:40
[2016-09-04 20:39] VITALS: BP 134/78; RESP 18
[2016-09-04] MEDS: traZODone 100 MG TAB PO SCH (21:00)
[2016-09-04] MEDS: SENNA TAB PO SCH (21:00)
[2016-09-04] MEDS: ATORVASTATIN 10 MG TAB PO SCH (21:34)
[2016-09-04] MEDS: TAMSULOSIN (SR) 0.4 MG CAP PO SCH (21:34)
[2016-09-05] MEDS: TOBRAMYCIN/DEXAMETH 2.5 ML OPH BOTH EYES SCH ×6 (01:00→21:57)
[2016-09-05] MEDS: PANTOPRAZOLE (EC) 40 MG TAB PO SCH ×2 (06:00→17:44)
[2016-09-05 07:30] VITALS: BP 152/65; RESP 18
[2016-09-05] MEDS: CHLORDIAZEPOXIDE 5 MG CAP PO SCH ×4 (08:06→21:58)
[2016-09-05] MEDS: DICYCLOMINE 10 MG CAP PO SCH ×4 (08:06→21:57)
[2016-09-05] MEDS: FERROUS FUMARATE (SR) TAB PO SCH ×3 (08:49→21:58)
[2016-09-05] MEDS: POTASSIUM CHLORIDE (SR) 8 MEQ CAP PO SCH (08:49)
[2016-09-05] MEDS: POTASSIUM CHLORIDE (SR) 20 MEQ TAB PO SCH (08:50)
[2016-09-05] MEDS: DOCUSATE SODIUM 100 MG CAP PO SCH ×2 (08:50→21:57)
[2016-09-05] MEDS: CLOTRIMAZOLE 10 MG TROCHE MT SCH ×4 (08:52→21:00)
--- NOTE | 2016-09-05 09:51 | PN ---
Date/Time of Note Date/Time of Note DATE: 09/05/16 TIME: 09:49 Assessment/Plan VTE Prophylaxis VTE Prophylaxis Intervention: ambulation Lines/Catheters [facility]from [facility] Saline Lock Urinary Cath still in place: No Assessment/Plan Assessment/Plan 1. Pulmonary debility due to PNA/ bronchitis. Status post course of antibiotics. With impaired mobility/gait/ADLs. SPV for lower body dressing and bathing. Continue medical management per internal medicine. Pulmonary status stable, continue to monitor 02 sats. 2. Anemia. Continue iron supplementation. Hemoglobin/hematocrit improving on last labs. 3. Osteoporosis. Internal medicine managing. 4. Irritable bowel syndrome. Stable. Continue medical management. 5. Hypertension. Continue to monitor BP, internal medicine following. Subjective 24 Hr Interval Summary Free Text/Dictation Rehab progress note Subjective: No acute overnight events per nursing staff. Denies shortness of breath, no cough, no chills. ROS: No chest pain, no abdominal pain, no constipation, no headache or dizziness , no joint pain. Exam/Review of Systems Vital Signs Vitals Vital Signs Date Time Temp Pulse Resp B/P Pulse Ox O2 Delivery O2 Flow Rate FiO2 09/04/16 20:39 97.7 72 18 134/78 94 Intake and Output 09/04/16 09/04/16 09/05/16 15:00 23:00 07:00 Intake Total 720 ml 350 ml Output Total 700 ml Balance 720 ml -350 ml Exam General: Awake, alert, no acute distress CV: Regular rate and rhythm, s1s2 Lungs: Respirations are nonlabored, symmetrical air entry bilaterally, no wheezing Abdomen soft, nontender Extremities without cyanosis, no new swelling Neuro: Antigravity strength BUE/BLE. No new sensory changes. Results Result Diagram: 09/03/1661409/03/1615 Medications Medications Current Medications Tamsulosin HCl (Flomax) 0.4 mg HS PO Last administered on 09/04/16 21:34; Admin Dose 0.4 MG; Start 08/27/16 at 23:05 Trazodone HCl (Desyrel) 100 mg QHS PO Last administered on 09/03/16 20:19; Admin Dose 100 MG; Start 08/27/16 at 23:05 Atorvastatin Calcium (Lipitor) 10 mg DAILY@21 PO Last administered on 21:34; Admin Dose 10 MG; Start 08/27/16 at 23:05 Clonidine (Catapres) 0.1 mg Q4 PRN PO sbp >160; Start 08/27/16 at 23:05 Guaifenesin/ Codeine Phosphate (Robitussin Ac Liquid Cup) 5 ml Q6H PRN PO COUGH ; Start 08/27/16 at 23:05 Guaifenesin/ Codeine Phosphate (Robitussin Ac Liquid Cup) 10 ml Q6H PRN PO COUGH; Start 08/27/16 at 23:05 Acetaminophen (Tylenol Tab) 650 mg Q6H PRN PO PAIN AND OR ELEVATED TEMP Last administered on 08/29/16 06:53; Admin Dose 650 MG; Start 08/27/16 at 23:05 Pantoprazole (Protonix Tab) 40 mg BID@06,18 PO Last administered on 09/02/16 17:20; Admin Dose 40 MG; Start 08/27/16 at 23:05 Phenol (Cepastat Lozenge) 1 lozenge Q1H PRN [place] SORE THROAT Last administered on 09/01/16 08:21; Admin Dose 1 LOZENGE; Start 08/27/16 at 23:05 Clotrimazole (Mycelex Wendy) 10 mg QID MT Last administered on 09/04/16 08:28 ; Admin Dose 10 MG; Start 08/27/16 at 23:05 Tobramycin/ Dexamethasone (Tobradex Oph Drop) 2 drop Q4HWA BOTH EYES Last administered on 09/05/16 08:52; Admin Dose 2 DROP; Start 08/27/16 at 23:05 Docusate Sodium/ Ferrous Fumarate (Ameena-Sequels) 1 tab TID PO Last administered on 09/05/16 08:49; Admin Dose 1 TAB; Start 08/28/16 at 13:00 Potassium Chloride (Klor-Con 20) 20 meq DAILY PO Last administered on 08:50; Admin Dose 20 MEQ; Start 08/28/16 at 09:40 Docusate Sodium (Colace) 100 mg BID PO Last administered on 09/04/16 21:33; Admin Dose 100 MG; Start 08/28/16 at 13:00 Senna (Senokot) 1 tab HS PO Last administered on 09/03/16 20:20; Admin Dose 1 TAB; Start 08/28/16 at 21:00 Bisacodyl (Dulcolax Supp) 10 mg Q24H PRN [place] CONSTIPATION; Start 08/28/16 at 12: 30 Magnesium Hydroxide (Milk Of Mag) 30 ml BID PRN PO CONSTIPATION; Start at 12:30 Lactulose (Enulose) 20 gm Q24H PRN PO CONSTIPATION; Start 08/28/16 at 12:30 Potassium Chloride (Micro-K) 8 meq DAILY PO Last administered on 09/05/16 08: 49; Admin Dose 8 MEQ; Start 09/01/16 at 09:00 TERELL FROST Sep 05, 2016 09:51
--- NOTE | 2016-09-05 14:53 | PN ---
DATE: 09/05/2016 SUBJECTIVE: No acute changes. Denies shortness of breath. No acute problems. No coughing or chil ls. PHYSICAL EXAMINATION: VITAL SIGNS: Temperature 97.8, pulse 76, respirations 18, blood pressure 152/65. HEENT: Normocephalic, atraumatic. EYES: Pupils equal, round, react to light and accommodation. CHEST: Had no wheeze, no rhonchi. ABDOMEN: Nontender, nondistended. ASSESSMENT AND PLAN: 1. Pulmonary debility with COPD, history of bronchitis, doing very well. 2. Anemia. 3. Irritable bowel syndrome. Continue current management. 4. Hypertension. Blood pressure mildly elevated, but overnight her was reintubated, so mor e stress. Dictated By: DEIRDRE DAVIS/ROWDY Conf#: [id number] DID#: [id number]
[2016-09-05 20:36] VITALS: BP 149/67; RESP 18
[2016-09-05] MEDS: traZODone 100 MG TAB PO SCH (21:00)
[2016-09-05] MEDS: SENNA TAB PO SCH (21:00)
[2016-09-05] MEDS: TAMSULOSIN (SR) 0.4 MG CAP PO SCH (21:58)
[2016-09-05] MEDS: ATORVASTATIN 10 MG TAB PO SCH (21:58)
[2016-09-06] MEDS: TOBRAMYCIN/DEXAMETH 2.5 ML OPH BOTH EYES SCH ×6 (01:00→20:43)
[2016-09-06] MEDS: PANTOPRAZOLE (EC) 40 MG TAB PO SCH ×2 (06:00→17:25)
[2016-09-06 07:30] VITALS: BP 167/72; RESP 18
[2016-09-06] MEDS: FERROUS FUMARATE (SR) TAB PO SCH ×3 (08:01→20:43)
[2016-09-06] MEDS: POTASSIUM CHLORIDE (SR) 8 MEQ CAP PO SCH (08:01)
[2016-09-06] MEDS: CLOTRIMAZOLE 10 MG TROCHE MT SCH ×4 (08:01→20:42)
[2016-09-06] MEDS: POTASSIUM CHLORIDE (SR) 20 MEQ TAB PO SCH (08:02)
[2016-09-06] MEDS: CHLORDIAZEPOXIDE 5 MG CAP PO SCH ×4 (08:02→20:43)
[2016-09-06] MEDS: DICYCLOMINE 10 MG CAP PO SCH ×4 (08:02→20:42)
[2016-09-06] MEDS: DOCUSATE SODIUM 100 MG CAP PO SCH ×2 (08:02→20:42)
[2016-09-06] MEDS: GUAIFENESIN/CODEINE 5ML CUP PO PRN (12:11)
--- NOTE | 2016-09-06 12:19 | CONS ---
Date/Time of Note Date/Time of Note DATE: 09/06/16 TIME: 12:18 Consult Date/Type/Reason Admit Date/Time Aug 27, 2016 at 22:25 Objective Vital Signs Date Time Temp Pulse Resp B/P Pulse Ox O2 Delivery O2 Flow Rate FiO2 09/05/16 20:36 98.2 73 18 149/67 92 Intake and Output 09/05/16 09/05/16 09/06/16 15:00 23:00 07:00 Intake Total 1580 ml 240 ml Output Total 1100 ml 500 ml Balance -1100 ml 1580 ml -260 ml INTERDISCIPLINARY TEAM CONFERENCE BOWEL- Cont BLADDER-Cont SKIN- intact OT- DRESSING-s BATHING-s TOILETING-s PT- BED MOBILITY-s TRANSFERS-s AMBULATION-s 200 feet A/P- Interdisciplinary team conference held today. Please see interdisciplinary sheet. Working toward d.c. on 09/10 with post discharge follow up of physical therapy, occupational therapy. Results/Medications Result Diagram: 09/03/1615 09/03/16 0615 Medications Current Medications Tamsulosin HCl (Flomax) 0.4 mg HS PO Last administered on 09/05/16 21:58; Admin Dose 0.4 MG; Start 08/27/16 at 23:05 Trazodone HCl (Desyrel) 100 mg QHS PO Last administered on 09/03/16 20:19; Admin Dose 100 MG; Start 08/27/16 at 23:05 Atorvastatin Calcium (Lipitor) 10 mg DAILY@21 PO Last administered on 21:58; Admin Dose 10 MG; Start 08/27/16 at 23:05 Clonidine (Catapres) 0.1 mg Q4 PRN PO sbp >160 Last administered on 09/06/16 12 :11; Admin Dose 0.1 MG; Start 08/27/16 at 23:05 Guaifenesin/ Codeine Phosphate (Robitussin Ac Liquid Cup) 5 ml Q6H PRN PO COUGH Last administered on 09/06/16 12:11; Admin Dose 5 ML; Start 08/27/16 at 23 :05 Guaifenesin/ Codeine Phosphate (Robitussin Ac Liquid Cup) 10 ml Q6H PRN PO COUGH; Start 08/27/16 at 23:05 Acetaminophen (Tylenol Tab) 650 mg Q6H PRN PO PAIN AND OR ELEVATED TEMP Last administered on 08/29/16 06:53; Admin Dose 650 MG; Start 08/27/16 at 23:05 Pantoprazole (Protonix Tab) 40 mg BID@06,18 PO Last administered on 09/02/16 17:20; Admin Dose 40 MG; Start 08/27/16 at 23:05 Phenol (Cepastat Lozenge) 1 lozenge Q1H PRN [place] SORE THROAT Last administered on 09/01/16 08:21; Admin Dose 1 LOZENGE; Start 08/27/16 at 23:05 Clotrimazole (Mycelex Wendy) 10 mg QID MT Last administered on 09/06/16 12:11 ; Admin Dose 10 MG; Start 08/27/16 at 23:05 Tobramycin/ Dexamethasone (Tobradex Oph Drop) 2 drop Q4HWA BOTH EYES Last administered on 09/06/16 12:12; Admin Dose 2 DROP; Start 08/27/16 at 23:05 Docusate Sodium/ Ferrous Fumarate (Ameena-Sequels) 1 tab TID PO Last administered on 09/06/16 12:12; Admin Dose 1 TAB; Start 08/28/16 at 13:00 Potassium Chloride (Klor-Con 20) 20 meq DAILY PO Last administered on 09/06/16 08:02; Admin Dose 20 MEQ; Start 08/28/16 at 09:40 Docusate Sodium (Colace) 100 mg BID PO Last administered on 09/06/16 08:02; Admin Dose 100 MG; Start 08/28/16 at 13:00 Senna (Senokot) 1 tab HS PO Last administered on 09/03/16 20:20; Admin Dose 1 TAB; Start 08/28/16 at 21:00 Bisacodyl (Dulcolax Supp) 10 mg Q24H PRN [place] CONSTIPATION; Start 08/28/16 at 12: 30 Magnesium Hydroxide (Milk Of Mag) 30 ml BID PRN PO CONSTIPATION; Start at 12:30 Lactulose (Enulose) 20 gm Q24H PRN PO CONSTIPATION; Start 08/28/16 at 12:30 Potassium Chloride (Micro-K) 8 meq DAILY PO Last administered on 09/06/16 08:01 ; Admin Dose 8 MEQ; Start 09/01/16 at 09:00 HERBER MAYNARD MD September 06, 2016 12:19 HERBER MAYNARD MD September 06, 2016 12:19
[2016-09-06 20:09] VITALS: BP 146/65; RESP 18
[2016-09-06] MEDS: TAMSULOSIN (SR) 0.4 MG CAP PO SCH (20:42)
[2016-09-06] MEDS: ATORVASTATIN 10 MG TAB PO SCH (20:42)
[2016-09-06] MEDS: SENNA TAB PO SCH (20:42)
--- NOTE | 2016-09-06 20:46 | CONS ---
DATE OF ADMISSION: 08/27/2016 DATE OF CONSULTATION: 09/06/2016 TYPE OF CONSULTATION: Hematology/Oncology. REQUESTING PHYSICIAN: Dr. William Bolaños. REASON FOR REEVALUATION: Possible myeloma. Dear Dr. Bolaños: Thank you very much for asking me to see this very interesting and pleasant patient once again in he matologic consultation. As you recall, I did see Ms. Vazquez during her recent admission to the [facility] side of the hospital at [facility] when she was admitted on 08/16/2016. The patient at that time was short of breath and had a productive cough. The patient was anemic at that time as well. Evaluation at that time suggested the possibility of an underlying immunoproliferative disorder. Th e patient had quantitative immunoglobulins, which were all decreased. IgG was 488, IgA 51, IgM 57. A serum immunofixation did demonstrate an IgG kappa monoclonal band. The urine immunofixation, how ever, did not show any monoclonal proteins. At that time, the patient also underwent a metastatic bone survey which did not demonstrate any abno rmalities other than a possible irregular lucency within the left distal tibial shaft. In order to clarify this, a lower extremity MRI of the left ankle was done which did not show any areas to sugge st a myeloma. Remainder of the MRI of the lower extremity did not at the same time again did not sh ow any abnormalities suggesting myeloma. The patient did have a chest CT during that hospitalization as well. This did not note any skeletal abnormalities or abnormalities suggesting a bone marrow infiltration as one might expect with an im munoproliferative disorder such as myeloma. The patient was then transferred to the acute rehab facility on 08/27/2016 where she has been a chely ent since. The patient has improved from respiratory status. More recently, the patient's white count was 5600, hemoglobin 10.4, hematocrit 32.8 and platelet cou nt 399,000. Most recent chemistries include a sodium 136, potassium 3.7, BUN 12, creatinine 0.58 an d calcium 9.0. On 08/29/2016, the patient underwent an x-ray of the lumbar spine which showed some disk space narro wing at L5-S1. This was followed up by an MRI of the lumbar spine on 08/31/2016. 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 There was also note of a "heterogeneous marrow signal" which was felt possib ly due to marrow replacement. At this time, there is still a concern about possible immunoproliferative disorder. In order to further evaluate, I will obtain an MRI of the pelvis with and without contrast. If this also shows evidence of changes consistent with bone marrow infiltration, a posterior iliac crest [place] ne marrow aspiration and biopsy will be performed. I have already also taken the liberty of repeating quantitative immunoglobulins to include IgG, IgA and IgM. We will also obtain another serum immunofixation as well as a beta 2 microglobulin, and se rum for free kappa and lambda light chains. Once again, thank you very much for the opportunity of participating in the medical care of this tisha y interesting and pleasant patient. I will be happy to follow this patient with you and assist in h er hematologic and oncologic evaluation and followup as necessary. Dictated By: SHERWIN HAGEN MD, SR/NTS Conf#: [id number] DID#: [id number]
[2016-09-06] MEDS: traZODone 100 MG TAB PO SCH (20:48)
--- NOTE | 2016-09-07 01:07 | PN ---
DATE: 09/06/2016 SUBJECTIVE: The patient awake and alert. She is having some nausea. The patient is taking KCl 20 mEq daily. We will cut her back to 8 mEq daily, as this may be the source of her nausea. OBJECTIVE: LUNGS: Clear to A and P. HEART: Normal sinus rhythm. No murmur, no enlargement. ABDOMEN: Bowel sounds are normal. There are no intraabdominal masses or bruits. Liver, kidneys, a nd spleen are not palpable. EXTREMITIES: No ankle edema. No pretibial edema. VITAL SIGNS: The patient is afebrile. Blood pressure varies from 146/65 to 167/72. Pulse varies f rom 72 to 81. Respiration rate is 18, pulse ox is 95% on room air. Intake and output 1820/1600. The patient was seen today by her commercial sales representative, Dr. Dick, who felt that she should have a CAT sca n of the pelvis with contrast and if any bony abnormalities are found that she should have a bone bi opsy. The patient, however, is very reluctant to have contrast. She does not mind having a pelvic ultrasound. I will discuss this matter with Dr. Dick in the morning. MRSA screen is negative. Dictated By: AGUSTINA LY MD WR/NTS Conf#: [id number] DID#: [id number] CC: HERBER MAYNARD MD;*End*
[2016-09-07] MEDS: TOBRAMYCIN/DEXAMETH 2.5 ML OPH BOTH EYES SCH ×6 (01:08→20:38)
[2016-09-07] MEDS: PANTOPRAZOLE (EC) 40 MG TAB PO SCH ×2 (06:00→17:38)
[2016-09-07 08:05] VITALS: BP 135/63; RESP 18
[2016-09-07] MEDS: DOCUSATE SODIUM 100 MG CAP PO SCH ×2 (08:13→20:39)
[2016-09-07] MEDS: CLOTRIMAZOLE 10 MG TROCHE MT SCH ×4 (08:13→20:41)
[2016-09-07] MEDS: CHLORDIAZEPOXIDE 5 MG CAP PO SCH ×4 (08:13→20:41)
[2016-09-07] MEDS: DICYCLOMINE 10 MG CAP PO SCH ×4 (08:13→20:40)
[2016-09-07] MEDS: POTASSIUM CHLORIDE (SR) 8 MEQ CAP PO SCH (08:14)
[2016-09-07] MEDS: FERROUS FUMARATE (SR) TAB PO SCH ×3 (08:14→20:40)
[2016-09-07] MEDS: GUAIFENESIN/CODEINE 5ML CUP PO PRN (08:14)
[2016-09-07 08:39] LABS: ADD SCAN DIFF NO
[2016-09-07 08:53] LABS: BASOPHIL # 0.1 10^3/ul (0.0-0.1); BASOPHILS % 0.8 % (0.0-2.0); EOSINOPHILS # 0.3 10^3/ul (0.0-0.5); EOSINOPHILS % 4.7 % (0.0-7.0); HEMATOCRIT 34.1 % (37.0-47.0); HEMOGLOBIN 11.1 g/dl (12.0-16.0); LYMPHOCYTES # 2.8 10^3/ul (0.8-2.9); LYMPHOCYTES % 42.4 % (15.0-51.0); MEAN CORPUSCULAR HEMOGLOBIN 29.7 pg (29.0-33.0); MEAN CORPUSCULAR HGB CONC 32.6 g/dl (32.0-37.0); MEAN CORPUSCULAR VOLUME 91.2 fl (82.0-101.0); MEAN PLATELET VOLUME 11.3 fl (7.4-10.4); MONOCYTE # 0.6 10^3/ul (0.3-0.9); MONOCYTES % 8.5 % (0.0-11.0); NEUTROPHIL # 2.8 10^3/ul (1.6-7.5); NEUTROPHILS % 42.4 % (39.0-77.0); PLATELET COUNT 368 10^3/UL (140-415); RED BLOOD COUNT 3.74 10^6/ul (4.20-5.40); RED CELL DISTRIBUTION WIDTH 13.5 % (11.5-14.5); WHITE BLOOD COUNT 6.6 10^3/ul (4.8-10.8)
[2016-09-07 08:59] LABS: CALCIUM 9.3 mg/dl (8.4-10.2); CREATININE 0.59 mg/dl (0.44-1.00); POTASSIUM 3.8 mmol/L (3.5-5.1)
[2016-09-07] MEDS ORDERED: POTASSIUM CHLORIDE (SR) 8 MEQ CAP PO SCH (09:00)
[2016-09-07 12:04] LABS: IMMUNOGLOBULIN A 84 mg/dl (70-400); IMMUNOGLOBULIN G 649 mg/dl (700-1600); IMMUNOGLOBULIN M 91 mg/dl (40-230)
--- NOTE | 2016-09-07 12:08 | CONS ---
Date/Time of Note Date/Time of Note DATE: 09/07/16 TIME: 12:08 Consult Date/Type/Reason Admit Date/Time Aug 27, 2016 at 22:25 Subjective Feeling better Objective pulm-cta s/ND ambulation Vital Signs Date Time Temp Pulse Resp B/P Pulse Ox O2 Delivery O2 Flow Rate FiO2 09/07/16 08:05 97.8 84 18 135/63 95 Intake and Output 09/06/16 09/06/16 09/07/16 15:00 23:00 07:00 Intake Total 1310 ml 700 ml Output Total 650 ml Balance 1310 ml 50 ml Results/Medications Result Diagram: 09/07/16 0700 09/07/16 0700 Results 24 hrs Laboratory Tests Test 09/07/16 07:00 White Blood Count 6.6 Red Blood Count 3.74 L Hemoglobin 11.1 L Hematocrit 34.1 L Mean Corpuscular Volume 91.2 Mean Corpuscular Hemoglobin 29.7 Mean Corpuscular Hemoglobin Concent 32.6 Red Cell Distribution Width 13.5 Platelet Count 368 Mean Platelet Volume 11.3 H Neutrophils % 42.4 Lymphocytes % 42.4 Monocytes % 8.5 Eosinophils % 4.7 Basophils % 0.8 Nucleated Red Blood Cells % 0.0 Neutrophils # 2.8 Lymphocytes # 2.8 Monocytes # 0.6 Eosinophils # 0.3 Basophils # 0.1 Nucleated Red Blood Cells # 0.0 Sodium Level 138 Potassium Level 3.8 Chloride Level 104 Carbon Dioxide Level 29 Anion Gap 9 Blood Urea Nitrogen 16 Creatinine 0.59 Glucose Level 81 Calcium Level 9.3 Medications Current Medications Tamsulosin HCl (Flomax) 0.4 mg HS PO Last administered on 09/06/16 20:42; Admin Dose 0.4 MG; Start 08/27/16 at 23:05 Trazodone HCl (Desyrel) 100 mg QHS PO Last administered on 09/03/16 20:19; Admin Dose 100 MG; Start 08/27/16 at 23:05 Atorvastatin Calcium (Lipitor) 10 mg DAILY@21 PO Last administered on 09/06/16 20:42; Admin Dose 10 MG; Start 08/27/16 at 23:05 Clonidine (Catapres) 0.1 mg Q4 PRN PO sbp >160 Last administered on 09/06/16 12 :11; Admin Dose 0.1 MG; Start 08/27/16 at 23:05 Guaifenesin/ Codeine Phosphate (Robitussin Ac Liquid Cup) 5 ml Q6H PRN PO COUGH Last administered on 09/07/16 08:14; Admin Dose 5 ML; Start 08/27/16 at 23 :05 Guaifenesin/ Codeine Phosphate (Robitussin Ac Liquid Cup) 10 ml Q6H PRN PO COUGH; Start 08/27/16 at 23:05 Acetaminophen (Tylenol Tab) 650 mg Q6H PRN PO PAIN AND OR ELEVATED TEMP Last administered on 08/29/16 06:53; Admin Dose 650 MG; Start 08/27/16 at 23:05 Pantoprazole (Protonix Tab) 40 mg BID@,18 PO Last administered on 09/02/16 17:20; Admin Dose 40 MG; Start 08/27/16 at 23:05 Phenol (Cepastat Lozenge) 1 lozenge Q1H PRN [place] SORE THROAT Last administered on 09/01/16 08:21; Admin Dose 1 LOZENGE; Start 08/27/16 at 23:05 Clotrimazole (Mycelex Wendy) 10 mg QID MT Last administered on 09/07/16 08:13 ; Admin Dose 10 MG; Start 08/27/16 at 23:05 Tobramycin/ Dexamethasone (Tobradex Oph Drop) 2 drop Q4HWA BOTH EYES Last administered on 09/07/16 08:14; Admin Dose 2 DROP; Start 08/27/16 at 23:05 Docusate Sodium/ Ferrous Fumarate (Ameena-Sequels) 1 tab TID PO Last administered on 09/07/16 08:14; Admin Dose 1 TAB; Start 08/28/16 at 13:00 Docusate Sodium (Colace) 100 mg BID PO Last administered on 09/07/16 08:13; Admin Dose 100 MG; Start 08/28/16 at 13:00 Senna (Senokot) 1 tab HS PO Last administered on 09/06/16 20:42; Admin Dose 1 TAB; Start 08/28/16 at 21:00 Bisacodyl (Dulcolax Supp) 10 mg Q24H PRN [place] CONSTIPATION; Start 08/28/16 at 12: 30 Magnesium Hydroxide (Milk Of Mag) 30 ml BID PRN PO CONSTIPATION; Start at 12:30 Lactulose (Enulose) 20 gm Q24H PRN PO CONSTIPATION; Start 08/28/16 at 12:30 Potassium Chloride (Micro-K) 8 meq DAILY PO Last administered on 09/07/16t 08:14 ; Admin Dose 8 MEQ; Start 09/07/16 at 09:00 Assessment/Plan Additional Assessment/Plan Rehab- Pulmonary debility secondary to chronic obstructive pulmonary disease, pneumonia, bronchitis. Working towards independence with activities. Anticpate dc at end of week Anemia-stable Irritable bowel syndrome. Hypertension. HERBER MAYNARD MD September 07, 2016 12:08
[2016-09-07 20:00] VITALS: BP 131/67; RESP 18
--- NOTE | 2016-09-07 20:12 | RADRPT ---
PROCEDURE: MR Pelvis without contrast. CLINICAL INDICATION: Possible bone marrow infiltrative process TECHNIQUE: Multiple MR pulse sequences in multiple planes were obtained. Images were reviewed on a high-resolution PACS workstation. COMPARISON: Correlation with MRI from 08/31/2016. FINDINGS: Osseous structures: Heterogeneous bone marrow signal noted throughout most of the pelvis pattern most consistent with re d marrow hyperplasia. Other bone marrow infiltrative process is not entirely excluded. No destruct parveen lesions or pathologic fractures are identified. There is a degenerative undersurface tear at the anterior superior labrum of the left hip. No high-g rade chondral defects are identified. Mild undersurface irregularity seen at the right anterior sup erior labrum. No high-grade chondral defects are present. Severe degenerative disk disease and disk space narrowing is noted at L5-S1. A small disk/osteophyt e complex is noted at this level. Soft tissues: There is no bulky pelvic lymphadenopathy. The muscles about the hip and pelvis maintain normal signal and appear symmetric. There is a trace amount of fluid in the left iliopsoas bursa. Mild nonspecific edema is noted in the sub iliacus reg ion. IMPRESSION: 1. Heterogeneous bone marrow signal seen throughout the pelvis and proximal femora most likely repr esenting red marrow hyperplasia. Other infiltrative bone marrow process is not entirely excluded an d clinical / laboratory correlation is suggested. 2. No evidence for acute osseous abnormality, destructive lesion or pathologic fracture. 3. Mild degenerative changes at both hips. 4. Severe degenerative disk disease at L5-S1. RPTAT: UU .Alvaro Villanueva MD, MD Date Time Electronically viewed and signed by .Alvaro Villanueva MD, MD on 09/07/2016 20:12 .d/
[2016-09-07] MEDS: TAMSULOSIN (SR) 0.4 MG CAP PO SCH (20:39)
[2016-09-07] MEDS: SENNA TAB PO SCH (20:39)
[2016-09-07] MEDS: traZODone 100 MG TAB PO SCH (20:40)
[2016-09-07] MEDS: ATORVASTATIN 10 MG TAB PO SCH (20:40)
--- NOTE | 2016-09-07 22:36 | PN ---
DATE: 09/07/2016 SUBJECTIVE: The patient awake, alert. She has been ambulating. She was walking outside. Very lit tle nausea since her potassium is decreased from 20 mEq to 80 mEq daily. OBJECTIVE: LUNGS: Clear to A and P. HEART: Normal sinus rhythm. Grade I/ systolic murmur to the left of the sternum. ABDOMEN: Liver, kidneys, spleen are not palpable. Bowel sounds are normal. There are no intraabdo olinda masses or bruits. EXTREMITIES: No ankle edema. VITAL SIGNS: The patient is afebrile, blood pressure is 135/63, pulse of 74, respiration rate is 18 . LABORATORY DATA: White blood cell count 6600, hemoglobin 11.1 gram%, hematocrit 34.1%, platelet cou nt is normal. Neutrophils 42.4%, lymphocytes 42.4%. Electrolytes: Sodium 138, potassium 3.8, chlo ride 104, carbon dioxide 29, BUN 16, creatinine 0.59, glucose 81, calcium 9.3, uncorrected. Immunog lobulin G is low at 649. Immunoglobulin A is normal at 84. Immunoglobulin M is normal at 91. Dictated By: AGUSTINA LY MD WR/NTS Conf#: [id number] DID#: [id number] CC: HERBER MAYNARD MD;*End*
[2016-09-08] MEDS: TOBRAMYCIN/DEXAMETH 2.5 ML OPH BOTH EYES SCH ×6 (01:00→20:35)
[2016-09-08] MEDS: PANTOPRAZOLE (EC) 40 MG TAB PO SCH ×2 (06:00→17:36)
[2016-09-08 07:49] VITALS: BP 143/60; RESP 18
[2016-09-08] MEDS: DICYCLOMINE 10 MG CAP PO SCH ×4 (07:50→21:31)
[2016-09-08] MEDS: CLOTRIMAZOLE 10 MG TROCHE MT SCH ×4 (07:51→20:38)
[2016-09-08] MEDS: DOCUSATE SODIUM 100 MG CAP PO SCH ×2 (07:51→20:34)
[2016-09-08] MEDS: GUAIFENESIN/CODEINE 5ML CUP PO PRN (07:51)
[2016-09-08] MEDS: FERROUS FUMARATE (SR) TAB PO SCH ×3 (07:51→20:35)
[2016-09-08] MEDS: CHLORDIAZEPOXIDE 5 MG CAP PO SCH ×4 (07:51→20:34)
[2016-09-08] MEDS: POTASSIUM CHLORIDE (SR) 8 MEQ CAP PO SCH (07:52)
--- NOTE | 2016-09-08 10:12 | CONS ---
Date/Time of Note Date/Time of Note DATE: 09/08/16 TIME: 10:12 Consult Date/Type/Reason Admit Date/Time Aug 27, 2016 at 22:25 Subjective Depressed regarding her 's illness Objective pulm-cta s ambulation Vital Signs Date Time Temp Pulse Resp B/P Pulse Ox O2 Delivery O2 Flow Rate FiO2 09/08/16 07:49 98.0 64 18 143/60 97 Intake and Output 09/07/16 09/07/16 09/08/16 15:00 23:00 07:00 Intake Total 1240 ml 620 ml 1050 ml Output Total 800 ml Balance 1240 ml 620 ml 250 ml Results/Medications Result Diagram: 09/07/16 0700 09/07/16 0700 Medications Current Medications Tamsulosin HCl (Flomax) 0.4 mg HS PO Last administered on 09/07/16 20:39; Admin Dose 0.4 MG; Start 08/27/16 at 23:05 Trazodone HCl (Desyrel) 100 mg QHS PO Last administered on 09/07/16 20:40; Admin Dose 100 MG; Start 08/27/16 at 23:05 Atorvastatin Calcium (Lipitor) 10 mg DAILY@21 PO Last administered on 09/07/16 20:40; Admin Dose 10 MG; Start 08/27/16 at 23:05 Clonidine (Catapres) 0.1 mg Q4 PRN PO sbp >160 Last administered on 09/06/16 12 :11; Admin Dose 0.1 MG; Start 08/27/16 at 23:05 Guaifenesin/ Codeine Phosphate (Robitussin Ac Liquid Cup) 5 ml Q6H PRN PO COUGH Last administered on 09/08/16 07:51; Admin Dose 5 ML; Start 08/27/16 at 23 :05 Guaifenesin/ Codeine Phosphate (Robitussin Ac Liquid Cup) 10 ml Q6H PRN PO COUGH; Start 08/27/16 at 23:05 Acetaminophen (Tylenol Tab) 650 mg Q6H PRN PO PAIN AND OR ELEVATED TEMP Last administered on 08/29/16 06:53; Admin Dose 650 MG; Start 08/27/16 at 23:05 Pantoprazole (Protonix Tab) 40 mg BID@,18 PO Last administered on 09/02/16 17:20; Admin Dose 40 MG; Start 08/27/16 at 23:05 Phenol (Cepastat Lozenge) 1 lozenge Q1H PRN [place] SORE THROAT Last administered on 09/01/16 08:21; Admin Dose 1 LOZENGE; Start 08/27/16 at 23:05 Clotrimazole (Mycelex Wendy) 10 mg QID MT Last administered on 09/08/16 07:51 ; Admin Dose 10 MG; Start 08/27/16 at 23:05 Tobramycin/ Dexamethasone (Tobradex Oph Drop) 2 drop Q4HWA BOTH EYES Last administered on 09/08/16 07:51; Admin Dose 2 DROP; Start 08/27/16 at 23:05 Docusate Sodium/ Ferrous Fumarate (Ameena-Sequels) 1 tab TID PO Last administered on 09/08/16 07:51; Admin Dose 1 TAB; Start 08/28/16 at 13:00 Docusate Sodium (Colace) 100 mg BID PO Last administered on 09/08/16 07:51; Admin Dose 100 MG; Start 08/28/16 at 13:00 Senna (Senokot) 1 tab HS PO Last administered on 09/07/16 20:39; Admin Dose 1 TAB; Start 08/28/16 at 21:00 Bisacodyl (Dulcolax Supp) 10 mg Q24H PRN [place] CONSTIPATION; Start 08/28/16 at 12: 30 Magnesium Hydroxide (Milk Of Mag) 30 ml BID PRN PO CONSTIPATION Last administered on 09/07/16 20:38; Admin Dose 30 ML; Start 08/28/16 at 12:30 Lactulose (Enulose) 20 gm Q24H PRN PO CONSTIPATION; Start 08/28/16 at 12:30 Potassium Chloride (Micro-K) 8 meq DAILY PO Last administered on 09/08/16 07:52 ; Admin Dose 8 MEQ; Start 09/07/16 at 09:00 Assessment/Plan Additional Assessment/Plan Rehab- Pulmonary debility secondary to chronic obstructive pulmonary disease, pneumonia, bronchitis. Continue rehab program, and work towards tuesday Anemia-monitor Irritable bowel syndrome. Hypertension. HERBER MAYNARD MD September 08, 2016 10:12
--- NOTE | 2016-09-08 14:19 | CONS ---
DATE OF ADMISSION: 08/27/2016 DATE OF CONSULTATION: 09/08/2016 SUBJECTIVE: The patient has no new complaints. She is concerned about her weakness. She has no edmar ne pain, however. No polyuria, no polydipsia. The patient has no cough, chest pain, or sputum production. OBJECTIVE: VITAL SIGNS: Temperature 98, pulse 64, respirations 18, blood pressure 143/60 and pulse oximetry 97 % on room air. SKIN: No ecchymosis, no petechiae or rashes. HEENT: No mucosal lesions. No scleral icterus. NECK: Supple, no jugular venous distention or thyroid enlargement. CHEST: Clear to auscultation and percussion. No rhonchi, wheezes, rales or rubs. There is no pain on percussion of the spine, sternum, clavicles or ribs. ABDOMEN: Soft, no masses, no ascites. Bowel sounds are active. EXTREMITIES: Good range of motion. No clubbing, no edema or cyanosis. No palpable cords or Homans sign. NEUROLOGIC is normal. IMAGING: An MRI of the pelvis has been done. The patient refused to have an IV placed and therefor e no contrast material was given. The findings do show a heterogeneous bone marrow signal throughou t the pelvis and proximal femurs, most likely representing red marrow hyperplasia. Other infiltrati ve process could not be ruled out, of course. There were no destructive or lytic lesions noted. IgG is 649, IgA 84, IgM 91. All of the immunoglobulins have increased. IgA and IgM are now within the normal range and IgG is mildly decreased. Immunofixation and quantitative light chains are pend ing at this time. 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 PLAN: At this time, I do not feel that the process seen on MRI suggests a bone marrow replacement p rocess such as myeloma. If the patient does have any type of immunoproliferative disorder, it is most likely a monoclonal ga mmopathy of uncertain significance. Although there may be marrow changes, there are no bony lytic o r destructive lesions. I do not feel that a bone marrow aspiration and biopsy is indicated at this time. I do feel that th e patient can be followed as an outpatient with repeat immunofixation, quantitative immunoglobulins, and measurement of free light chains. Dictated By: SHERWIN HAGEN MD, SR/NTS Conf#: [id number] [facility]#: [id number]
[2016-09-08] MEDS: LACTULOSE 30ML CUP PO PRN (17:32)
[2016-09-08 20:00] VITALS: BP 114/55; RESP 18
--- NOTE | 2016-09-08 20:09 | CONS ---
DATE OF ADMISSION: 08/27/2016 DATE OF CONSULTATION: 09/08/2016 PSYCHOLOGY--INDIVIDUAL SESSION--[id number] This is a followup on a patient who was seen last week. The patient was seen sitting up in her sarah r. The patient is preparing for discharge in a couple of days. The patient is feeling much better and felt like she has made a good deal of progress. The patient was still very depressed and tearfu l, but this is regarding her , who is presently in the ICU in the hospital. The patient is f earful that he will not recover to the point where he is going to be able to function as he did prio r to entering the hospital. The patient knows that she is likely going to have to put him in a nurs ing home. The patient herself does want to return to her previous level of functioning and does wan t to regain as much of her overall function as she can. I worked with the patient supportively to try to help her deal with the issues regarding her feeling s about her , ICU and being extremely ill. Dictated By: JOSEPHINE CARNEY PHD DION/ROWDY Conf#: [id number] DID#: [id number]
[2016-09-08] MEDS: ATORVASTATIN 10 MG TAB PO SCH (20:34)
[2016-09-08] MEDS: traZODone 100 MG TAB PO SCH (20:34)
[2016-09-08] MEDS: TAMSULOSIN (SR) 0.4 MG CAP PO SCH (20:35)
[2016-09-08] MEDS: SENNA TAB PO SCH (20:35)
[2016-09-09] MEDS: TOBRAMYCIN/DEXAMETH 2.5 ML OPH BOTH EYES SCH ×6 (01:00→20:52)
--- NOTE | 2016-09-09 03:59 | PN ---
DATE: 09/08/2016 GENERAL: The patient is awake and alert, mentating normally. HEART: Normal sinus rhythm. LUNGS: Clear to A and P. ABDOMEN: Liver, kidneys and spleen are not palpable. Bowel sounds are normal. There are no intraa bdominal masses or bruits. Abdomen is slightly distended and the patient has not had a bowel moveme nt in approximately 3 days. She was given lactulose this afternoon and we will await results. EXTREMITIES: No ankle edema. The patient was seen by Dr. Dick, her health officer, who feels that she has a probable monoclonal gammopathy of uncertain significance. An MRI of the pelvis revealed heterogeneous bone marrow signa l throughout the pelvis and proximal femurs, most likely representing red marrow hyperplasia. Other infiltrative processes cannot be ruled out. There were no destructive or lytic lesions noted or im munoglobulins have increased. Immunoglobulin A and immunoglobulin M are now within normal range and ITT has mildly decreased. Immunofixation and quantitative light chains are pending at this time. Dr. Dick felt that she has a problem with monoclonal gammopathy of uncertain significance and it should be followed on an outpatient basis. IMAGING: Pelvic MRI reveals heterogeneous bone marrow signal seen throughout the pelvis and proxima l femoral. No evidence of acute osseous abnormality, destructive lesion or pathologic fracture, mil d degenerative changes of both hips, severe degenerative disk disease at L5, S1. The patient to be discharged in 2 days. Dictated By: AGUSTINA PALMA/ROWDY Conf#: [id number] DID#: [id number]
[2016-09-09] MEDS: PANTOPRAZOLE (EC) 40 MG TAB PO SCH ×2 (06:00→17:50)
[2016-09-09 07:30] VITALS: BP 142/63; RESP 18
[2016-09-09] MEDS: CHLORDIAZEPOXIDE 5 MG CAP PO SCH ×4 (08:02→20:52)
[2016-09-09] MEDS: DICYCLOMINE 10 MG CAP PO SCH ×4 (08:02→20:53)
[2016-09-09] MEDS: POTASSIUM CHLORIDE (SR) 8 MEQ CAP PO SCH (09:36)
[2016-09-09] MEDS: DOCUSATE SODIUM 100 MG CAP PO SCH ×2 (09:36→20:53)
[2016-09-09] MEDS: FERROUS FUMARATE (SR) TAB PO SCH ×3 (09:37→20:53)
--- NOTE | 2016-09-09 12:25 | CONS ---
Date/Time of Note Date/Time of Note DATE: 09/09/16 TIME: 12:23 Consult Date/Type/Reason Admit Date/Time Aug 27, 2016 at 22:25 Subjective Overall significantly improved Objective pulm-cta s ambulation Vital Signs Date Time Temp Pulse Resp B/P Pulse Ox O2 Delivery O2 Flow Rate FiO2 09/09/16 07:30 98.2 66 18 142/63 92 Intake and Output 09/08/16 09/08/16 09/09/16 15:00 23:00 07:00 Intake Total 1240 ml 620 ml Output Total 350 ml 850 ml Balance 1240 ml 270 ml -850 ml Results/Medications Result Diagram: 09/07/16 0700 09/07/16 0700 Results 24 hrs Laboratory Tests Test 09/09/16 12:11 Lab Scanned Report REFERENCE LAB Medications Current Medications Tamsulosin HCl (Flomax) 0.4 mg HS PO Last administered on 09/08/16 20:35; Admin Dose 0.4 MG; Start 08/27/16 at 23:05 Trazodone HCl (Desyrel) 100 mg QHS PO Last administered on 09/08/16 20:34; Admin Dose 100 MG; Start 08/27/16 at 23:05 Atorvastatin Calcium (Lipitor) 10 mg DAILY@21 PO Last administered on 09/08/16 20:34; Admin Dose 10 MG; Start 08/27/16 at 23:05 Clonidine (Catapres) 0.1 mg Q4 PRN PO sbp >160 Last administered on 09/06/16 12 :11; Admin Dose 0.1 MG; Start 08/27/16 at 23:05 Guaifenesin/ Codeine Phosphate (Robitussin Ac Liquid Cup) 5 ml Q6H PRN PO COUGH Last administered on 09/08/16 07:51; Admin Dose 5 ML; Start 08/27/16 at 23 :05 Guaifenesin/ Codeine Phosphate (Robitussin Ac Liquid Cup) 10 ml Q6H PRN PO COUGH; Start 08/27/16 at 23:05 Acetaminophen (Tylenol Tab) 650 mg Q6H PRN PO PAIN AND OR ELEVATED TEMP Last administered on 08/29/16 06:53; Admin Dose 650 MG; Start 08/27/16 at 23:05 Pantoprazole (Protonix Tab) 40 mg BID@,18 PO Last administered on 09/02/16 17:20; Admin Dose 40 MG; Start 08/27/16 at 23:05 Phenol (Cepastat Lozenge) 1 lozenge Q1H PRN [place] SORE THROAT Last administered on 09/01/16 08:21; Admin Dose 1 LOZENGE; Start 08/27/16 at 23:05 Clotrimazole (Mycelex Wendy) 10 mg QID MT Last administered on 09/08/16 20:38 ; Admin Dose 10 MG; Start 08/27/16 at 23:05 Tobramycin/ Dexamethasone (Tobradex Oph Drop) 2 drop Q4HWA BOTH EYES Last administered on 09/09/16 09:36; Admin Dose 2 DROP; Start 08/27/16 at 23:05 Docusate Sodium/ Ferrous Fumarate (Ameena-Sequels) 1 tab TID PO Last administered on 09/09/16 09:37; Admin Dose 1 TAB; Start 08/28/16 at 13:00 Docusate Sodium (Colace) 100 mg BID PO Last administered on 09/09/16 09:36; Admin Dose 100 MG; Start 08/28/16 at 13:00 Senna (Senokot) 1 tab HS PO Last administered on 09/08/16 20:35; Admin Dose 1 TAB; Start 08/28/16 at 21:00 Bisacodyl (Dulcolax Supp) 10 mg Q24H PRN [place] CONSTIPATION; Start 08/28/16 at 12: 30 Magnesium Hydroxide (Milk Of Mag) 30 ml BID PRN PO CONSTIPATION Last administered on 09/07/16 20:38; Admin Dose 30 ML; Start 08/28/16 at 12:30 Lactulose (Enulose) 20 gm Q24H PRN PO CONSTIPATION Last administered on 17:32; Admin Dose 20 GM; Start 08/28/16 at 12:30 Potassium Chloride (Micro-K) 8 meq DAILY PO Last administered on 09/09/16 09:36 ; Admin Dose 8 MEQ; Start 09/07/16 at 09:00 Assessment/Plan Additional Assessment/Plan Rehab- Pulmonary debility secondary to chronic obstructive pulmonary disease, pneumonia, bronchitis. Excellent progress, anticipate dc tomorrow Anemia-stable Irritable bowel syndrome. Hypertension. HERBER MAYNARD MD September 09, 2016 12:25
[2016-09-09] MEDS: CLOTRIMAZOLE 10 MG TROCHE MT SCH ×5 (13:00→20:52)
[2016-09-09] MEDS: traZODone 100 MG TAB PO SCH ×2 (20:53→21:00)
[2016-09-09] MEDS: SENNA TAB PO SCH (20:53)
[2016-09-09] MEDS: TAMSULOSIN (SR) 0.4 MG CAP PO SCH (20:53)
[2016-09-09] MEDS: ATORVASTATIN 10 MG TAB PO SCH (20:53)
[2016-09-09] MEDS: LACTULOSE 30ML CUP PO PRN (20:54)
[2016-09-10] MEDS: TOBRAMYCIN/DEXAMETH 2.5 ML OPH BOTH EYES SCH ×4 (01:00→12:52)
--- NOTE | 2016-09-10 03:02 | PN ---
DATE: 09/09/2016 OBJECTIVE: The patient is awake and alert. HEART: Normal sinus rhythm. LUNGS: Clear to A and P. ABDOMEN: Liver, kidneys, spleen are not palpable. Bowel sounds are normal. No intraabdominal mass es or bruits. The patient had a very small bowel movement today, but is still constipated. EXTREMITIES: No ankle edema. The patient is ambulating well. It is anticipated that she may go home tomorrow after making excellent progress in the rehabilitatio n paredes. She is afebrile, blood pressure is 142/63, pulse 66, respiratory rate is 18. Dictated By: AGUSTINA PALMA/ROWDY Conf#: [id number] DID#: [id number]
[2016-09-10] MEDS: PANTOPRAZOLE (EC) 40 MG TAB PO SCH (05:33)
[2016-09-10] MEDS: CHLORDIAZEPOXIDE 5 MG CAP PO SCH ×2 (07:52→12:52)
[2016-09-10] MEDS: DICYCLOMINE 10 MG CAP PO SCH ×2 (07:53→12:52)
[2016-09-10] MEDS: CLOTRIMAZOLE 10 MG TROCHE MT SCH ×2 (07:53→12:53)
[2016-09-10] MEDS: LACTULOSE 30ML CUP PO PRN (07:56)
[2016-09-10 08:25] LABS: ADD SCAN DIFF NO
[2016-09-10] MEDS: FERROUS FUMARATE (SR) TAB PO SCH ×2 (08:39→12:51)
[2016-09-10] MEDS: POTASSIUM CHLORIDE (SR) 8 MEQ CAP PO SCH (08:40)
[2016-09-10] MEDS: DOCUSATE SODIUM 100 MG CAP PO SCH (08:40)
[2016-09-10 08:41] LABS: BASOPHIL # 0.1 10^3/ul (0.0-0.1); EOSINOPHILS # 0.4 10^3/ul (0.0-0.5); EOSINOPHILS % 6.8 % (0.0-7.0); HEMATOCRIT 33.9 % (37.0-47.0); HEMOGLOBIN 11.1 g/dl (12.0-16.0); LYMPHOCYTES # 2.3 10^3/ul (0.8-2.9); LYMPHOCYTES % 36.7 % (15.0-51.0); MEAN CORPUSCULAR HEMOGLOBIN 29.6 pg (29.0-33.0); MEAN CORPUSCULAR HGB CONC 32.7 g/dl (32.0-37.0); MEAN CORPUSCULAR VOLUME 90.4 fl (82.0-101.0); MEAN PLATELET VOLUME 11.3 fl (7.4-10.4); MONOCYTE # 0.5 10^3/ul (0.3-0.9); MONOCYTES % 8.3 % (0.0-11.0); NEUTROPHIL # 2.9 10^3/ul (1.6-7.5); NEUTROPHILS % 46.4 % (39.0-77.0); PLATELET COUNT 262 10^3/UL (140-415); RED BLOOD COUNT 3.75 10^6/ul (4.20-5.40); RED CELL DISTRIBUTION WIDTH 13.5 % (11.5-14.5); WHITE BLOOD COUNT 6.3 10^3/ul (4.8-10.8)
[2016-09-10 09:00] LABS: CALCIUM 8.9 mg/dl (8.4-10.2); CREATININE 0.57 mg/dl (0.44-1.00); POTASSIUM 3.6 mmol/L (3.5-5.1)
[2016-09-10 09:01] VITALS: BP 141/63; RESP 18
== END 2016-09-10 15:15 | disposition home health service (06) | DRG 190 ==
LOC: VRC 22:25
PROVIDERS: ADMIT Physical Medicine & Rehabilitation
DX: J44.0 Chronic obstructive pulmonary disease with (acute) lower respiratory infection (principal); J18.9 Pneumonia, unspecified organism; L03.115 Cellulitis of right lower limb; D64.9 Anemia, unspecified; L03.116 Cellulitis of left lower limb; D47.2 Monoclonal gammopathy; I10 Essential (primary) hypertension; M81.0 Age-related osteoporosis without current pathological fracture; K58.9 Irritable bowel syndrome, unspecified; Z74.09 Other reduced mobility; M47.816 Spondylosis without myelopathy or radiculopathy, lumbar region; F06.34 Mood disorder due to known physiological condition with mixed features; Z87.891 Personal history of nicotine dependence; J40 Bronchitis, not specified as acute or chronic; R11.0 Nausea; M51.36 Other intervertebral disc degeneration, lumbar region
CPT/HCPCS: 72100; 72148; 72195; 80048; 80053; 81003; 82784; 85025; 86320; 87081; 87086; 97110; 97112; 97116; 97150; 97163; 97166; 97530; 97535